=== PATIENT | male | born 1940 | race Caucasian/White ===

== ENCOUNTER 2016-11-15 11:47 | Inpatient (IN) | payer MEDICARE, BC ==
[~2016-11-15] VITALS: Ht 188 cm; Wt 190.5 kg
[2016-11-15] VITALS (15 sets, daily range): BP systolic 99–148; BP diastolic 47–82; BMI 54.0
[~2016-11-15 11:47] MED LIST: ADVIL200 MG PO; BUMEX2 MG PO; COLCRYS0.6 MG PO; COUMADIN5 MG PO; LISINOPRIL-HCTZ1 T13 PO; METFORMIN HCL500 M1 PO; METOPROLOL TAR100 M1 PO; PRAVACHOL40 MG PO; PROTONIX40 MG PO; XARELTO20 MG PO; ZYLOPRIM100 MG PO
[2016-11-15 12:35] LABS: BASOPHILS 0.5 % (0.0-2.0); HEMATOCRIT 28.6 % (42.0-54.0); HEMOGLOBIN 8.5 g/dL (13.5-17.5); IMMATURE GRANULOCYTES 0.4 % (0-5); LYMPHOCYTES 12.2 % (15-50); MCH 21.9 pg (26.0-34.0); MCHC 29.7 g/dL (31.0-37.0); MCV 73.7 fL (80.0-100.0); MEAN PLATELET VOLUME 9.5 fL (7.4-10.4); MONOCYTES 10.2 % (2-11); NEUTROPHILS 72.7 % (40-80); PLATELET COUNT 268 10x3/uL (130-400); RBC 3.88 10x6/uL (4.20-6.10); WBC 8.4 10x3/uL (4.8-10.8)
[2016-11-15 12:49] LABS: ALBUMIN 3.6 g/dL (3.4-5.0); ANION GAP 16.5 mmol/L (8-16); BILIRUBIN - TOTAL 0.53 mg/dL (0.2-1.3); CALCIUM 8.8 mg/dL (8.5-10.1); CARBON DIOXIDE 23.9 mmol/L (21.0-32.0); CREATININE - SERUM 1.4 mg/dL (0.6-1.3); POTASSIUM - SERUM 4.4 mmol/L (3.5-5.1); PROTEIN - SERUM 7.1 g/dL (6.4-8.2)
[2016-11-15 12:52] LABS: INR 2.32 (0.85-1.17); PROTIME 25.6 SECONDS (11.6-15.0)
[2016-11-15 12:53] LABS: APTT 47.9 SECONDS (22.8-39.4)
--- NOTE | 2016-11-15 17:20 | NUR ---
RECEIVED TO ROOM 2231 AT THIS TIME FROM ER VIA WHEELCHAIR. PT ALERT AND ORIENTED AND AMBULATES INDEPENDENTLY. AT BEDSIDE. IV TO RIGHT HAND PATENT WITH NO S/S OF INFILTRATION PRESENT. BLOOD CONSENT ON THE CHART. ORIENTED PT TO ROOM AND CALL LIGHT. PROVIDED WITH FRESH ICE WATER. CALL LIGHT IN REACH, WILL CONTINUE WITH PLAN OF CARE.
[2016-11-15] MEDS ORDERED: COLCRYS0.6 MG PO (17:39)
--- NOTE | 2016-11-15 18:00 | NUR ---
FIRST UNIT OF PRBC'S INITIATED AT THIS TIME. AT BEDSIDE AND VITAL SIGNS STABLE. CALL LIGHT IN REACH, WILL CONTINUE WITH PLAN OF CARE.
--- NOTE | 2016-11-15 19:30 | NUR ---
PATIENT RESTING IN BED. ALERT AND ORIENTED. BLODD INFUSING TO RIGHT HAND IV. NO SIGNS OF DISTRESS NOTED. RESPIRATIONS EVEN AND UNLABORED. DENIES ANY NEEDS AT THIS TIME. BED LOW. CALL LIGHT IN REACH.
--- NOTE | 2016-11-15 22:56 | NUR ---
RESTING WITH EYES CLOSED, RESP WITH EASE, CPAP IN PLACE, PRBC INFUSING WITH NO REACTION NOTED, SR'S UP X2, CL IN REACH
[2016-11-16 00:50] VITALS: BP 114/58
[2016-11-16 01:50] VITALS: BP 120/65
[2016-11-16 02:50] VITALS: BP 141/87
[2016-11-16 05:48] LABS: BASOPHILS 0.7 % (0.0-2.0); EOSINOPHILS 5.2 % (0-7); HEMATOCRIT 29.5 % (42.0-54.0); IMMATURE GRANULOCYTES 0.3 % (0-5); LYMPHOCYTES 15.7 % (15-50); MCH 22.8 pg (26.0-34.0); MCHC 30.5 g/dL (31.0-37.0); MCV 74.7 fL (80.0-100.0); MEAN PLATELET VOLUME 9.5 fL (7.4-10.4); MONOCYTES 11.8 % (2-11); NEUTROPHILS 66.3 % (40-80); PLATELET COUNT 275 10x3/uL (130-400); RBC 3.95 10x6/uL (4.20-6.10); WBC 6.9 10x3/uL (4.8-10.8)
[2016-11-16 06:05] LABS: ANION GAP 11.5 mmol/L (8-16); CALCIUM 8.4 mg/dL (8.5-10.1); CARBON DIOXIDE 28.3 mmol/L (21.0-32.0); CREATININE - SERUM 1.4 mg/dL (0.6-1.3); POTASSIUM - SERUM 3.8 mmol/L (3.5-5.1)
--- NOTE | 2016-11-16 07:00 | NUR ---
REPORT RECIEVED ASSUMED CARE. PATIENT IN BED WITH IV INTACT. NO COMPLAINTS. BIPAP ON, RESTING QUIETLY. CALL LIGHT WITHIN REACH.
[2016-11-16 08:09] VITALS: BP 131/70
[2016-11-16 11:56] VITALS: BP 128/66
[2016-11-16 12:29] VITALS: Ht 188 cm; Wt 190.5 kg
--- NOTE | 2016-11-16 18:55 | NUR ---
PATIENT IN BED WITH INTACT. NO COMPLAINTS AT THIS TIME. DENIES ANY NEEDS. CALL LIGHT WITHIN REACH.
[2016-11-16 20:14] VITALS: BP 131/69
--- NOTE | 2016-11-16 20:37 | NUR ---
AWAKE,ALERT, NO COMPLIANTS VOICED. SL TO RIGHT ARM WIHTOUT REDNESS OR EDEMA. CL IN REACH.
[2016-11-17 00:04] VITALS: BP 111/55
--- NOTE | 2016-11-17 01:03 | NUR ---
EYES CLOSED RESP EVEN. NO DISTRESS NOTED. NPO AFER MN FOR AM PROCEDURE. CL IN REACH.
--- NOTE | 2016-11-17 03:24 | NUR ---
PT IS ALSEEP WITH EASY RESPIRATIONS AND NO DISTRESS NOTED. THE BED IS LOW, RAILS UP X'S 2 AND THE CALL LIGHT AT HAND. LIGHTS OFF AND ROOM IS DIM.
[2016-11-17 03:59] VITALS: BP 125/71
[2016-11-17 05:49] LABS: BASOPHILS 0.7 % (0.0-2.0); EOSINOPHILS 4.8 % (0-7); HEMATOCRIT 31.6 % (42.0-54.0); HEMOGLOBIN 9.5 g/dL (13.5-17.5); IMMATURE GRANULOCYTES 0.3 % (0-5); LYMPHOCYTES 19.2 % (15-50); MCH 22.4 pg (26.0-34.0); MCHC 30.1 g/dL (31.0-37.0); MCV 74.4 fL (80.0-100.0); MEAN PLATELET VOLUME 9.7 fL (7.4-10.4); MONOCYTES 11.6 % (2-11); NEUTROPHILS 63.4 % (40-80); PLATELET COUNT 305 10x3/uL (130-400); RBC 4.25 10x6/uL (4.20-6.10); RDW 17.2 % (11.5-14.5); WBC 7.3 10x3/uL (4.8-10.8)
[2016-11-17 06:00] LABS: INR 1.32 (0.85-1.17); PROTIME 16.3 SECONDS (11.6-15.0)
[2016-11-17 06:14] LABS: ALBUMIN 3.6 g/dL (3.4-5.0); ANION GAP 13.9 mmol/L (8-16); BILIRUBIN - DIRECT 0.4 mg/dL (0.00-0.30); BILIRUBIN - INDIRECT 0.6 mg/dL (0.00-1.00); CALCIUM 8.6 mg/dL (8.5-10.1); CARBON DIOXIDE 26.2 mmol/L (21.0-32.0); CREATININE - SERUM 1.4 mg/dL (0.6-1.3); POTASSIUM - SERUM 4.1 mmol/L (3.5-5.1); PROTEIN - SERUM 6.9 g/dL (6.4-8.2)
--- NOTE | 2016-11-17 06:30 | NUR ---
AROUSES EASILY. NO COMPLIANTS VOICED. CL IN REACH. REMAINS NPO
[2016-11-17 08:34] VITALS: BP 117/58
[2016-11-17 12:21] VITALS: BP 146/82
--- NOTE | 2016-11-17 15:06 | NUR ---
RECEIVED PATIENT LAYING IN BED WEARING HIS CPAP MACHINE. DENIES PAIN. VERY POLITE AND SOCIAL. SALINE LOCK TO RIGHT HAND INTACT AND PATENT. PATIENT IS NPO FOR SCHEDULED EGD TODAY. MEDS HELD. CALL LIGHT WITHIN REACH AND BED IN LOW POSITION. DENIES NEEDS.
--- NOTE | 2016-11-17 15:08 | NUR ---
SALINE LOCK FLUSHED. FSBS 136. DENIES PAIN. CALM AND COOPERATIVE.
[2016-11-17 15:10] VITALS: BP 133/67
--- NOTE | 2016-11-17 15:30 | NUR ---
DOWN FOR EGD VIA BED.
--- NOTE | 2016-11-17 17:45 | NUR ---
RECEIVED FROM EGD VIA BED. FAMILY AT BEDSIDE. NO C/O VOICED. WANTING MOR FOOD.
[2016-11-17 20:00] VITALS: BP 144/84
--- NOTE | 2016-11-17 20:30 | NUR ---
AWAKE WITH NO COMPLAINTS. SL TO RIGHT ARM WITHOUT REDNESS OR EDEMA NOTED. CL IN REACH.
[2016-11-18] VITALS: BP 142/62
--- NOTE | 2016-11-18 02:08 | NUR ---
EYES CLOSED RESP EVEN AND UNALBORED. NO DISTRESS NOTED. CLIN REACH
[2016-11-18 04:00] VITALS: BP 112/65
--- NOTE | 2016-11-18 05:19 | NUR ---
PT IS ASLEEP WITH CPAP/BIPAP IN PLACE. NO DISTRESS NOTED AT THIS TIME. THE LIGHTS ARE DIM AND TV IS OFF. THE BED IS LOW, RAILS UP X'S 2 WITH THE CALL LIGHT AT HAND.
[2016-11-18 05:44] LABS: BASOPHILS 0.5 % (0.0-2.0); EOSINOPHILS 4.9 % (0-7); HEMATOCRIT 29.6 % (42.0-54.0); IMMATURE GRANULOCYTES 0.3 % (0-5); MCH 22.7 pg (26.0-34.0); MCHC 30.4 g/dL (31.0-37.0); MCV 74.6 fL (80.0-100.0); MEAN PLATELET VOLUME 9.7 fL (7.4-10.4); MONOCYTES 13.1 % (2-11); NEUTROPHILS 63.2 % (40-80); PLATELET COUNT 262 10x3/uL (130-400); RBC 3.97 10x6/uL (4.20-6.10); RDW 17.4 % (11.5-14.5); WBC 6.2 10x3/uL (4.8-10.8)
[2016-11-18 05:52] LABS: ANION GAP 12.7 mmol/L (8-16); CALCIUM 8.6 mg/dL (8.5-10.1); CREATININE - SERUM 1.4 mg/dL (0.6-1.3); POTASSIUM - SERUM 3.7 mmol/L (3.5-5.1)
--- NOTE | 2016-11-18 06:31 | NUR ---
NO COMPLAINS VOICED. NO DISTRESS NOTED. CL IN REACH.
--- NOTE | 2016-11-18 07:25 | NUR ---
PT RESTING IN BED, NO CURRENT COMPLAINTS, BED LOWEST POSITION, CALL LIGHT IN REACH, WILL CONTINUE TO MONITOR
--- NOTE | 2016-11-18 07:25 | NUR ---
PT SITTING UP IN BED, BY BEDSIDE, NO COMPLAINTS AT THIS TIME, BED LOWEST POSITION, CALL LIGHT IN REACH, WILL CONTINUE TO MONITOR
[2016-11-18 08:43] VITALS: BP 112/52
--- NOTE | 2016-11-18 09:53 | NUR ---
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 NO COMPLAINTS OF PAIN OR BLEEDING THIS AM. STATES HE FEELS GREAT AND WANTS TO GO HOME. STATES HAD ULCERS YESTERDAY FOUND IN GI LAB AND WILL DO WHAT IS NEEDED TO HEAL THEM. CALL LIGHT IN REACH. VISITOR AT BEDSIDE
--- NOTE | 2016-11-18 12:00 | NUR ---
PT RESTING IN BED NO COMPLAINTS AT THIS TIME, BED LOWEST POSITION, SIDE RAILS UP X1, CALL LIGHT IN REACH, WILL CONTINUE TO MONITOR
[2016-11-18 12:54] VITALS: BP 118/59
[2016-11-18] MEDS ORDERED: CARAFATE1 G/10 ML PO (13:07)
[2016-11-18] MEDS ORDERED: ELIQUIS5 MG PO (13:08)
--- NOTE | 2016-11-18 13:16 | NUR ---
Patient Name: HUMBLE QUEEN Admission Status: ER Accout number: [id number] Admission Date: 11-16-2016 : 1940 Admission Diagnosis:DALIA Attending: TELMA Current LOS: 2 Anticipated DC Date: 11-18-2016 Planned Disposition: Home or Self Care Primary Insurance: MEDICARE A & B Discharge Planning Comments: CM MET WITH PATIENT REGARDING D/C NEEDS AND PLANS. PATIENT STATED HE LIVES WITH HIS SPOUSE (LEORA) AND SHE WILL DRIVE HIM HOME AT DISCHARGE. PATIENT PCP IS DR. DAILY AND PHARMACY IS [facility] [address] [facility] [employer]. PATIENT STATED HE IS INDEPENDENT WITH HIS CARE AND HAS A C-PAP, WALKER, AND SHOWER CHAIR AT HOME. PATIENT DENIES HOME HEALTH OR ANY OTHER NEEDS AT DISCHARGE. PAIENT SHOULD D/C HOME TODAY AND WILL DRIVE HIM HOME. CM WILL CONTINUE TO FOLLOW PATIENT WITH D/C NEEDS AND PLANS. PCP DR. KILLIAN RON 7S [phone] LEORA () [phone] [employer] Teacher: Chinyere Jenesn Is the patient Alert and Oriented? Yes 0 * How many steps to enter\exit or inside your home? 3 W/RAILS 0 * PCP DR. DAILY 0 * [facility] * Preadmission Environment Home with Family 0 * ADLs Independent 0 * Equipment CPAP Shower Chair Walker 0 * List name and contact numbers for known caregivers / representatives who currently or will assist patient after discharge: LEORA (SPOUSE) [phone] 0 * Community resources currently utilized None 0 * Additional services required to return to the preadmission environment? Yes 0 * Can the patient safely return to the preadmission environment? Yes 0 * Has this patient been hospitalized within the prior 30 days at any hospital? No 0 Grand Total: 0
--- NOTE | 2016-11-18 16:14 | NUR ---
DISCHARGE PAPER AND INSTRUCTIONS GIVEN TO PATIENT AND SPOUSE, QUESTIONS ANSWERED, IV REMOVED WITH TIP INTACT, DISCHARGED PER WHEELCHAIR WITH BELONGINGS
== END 2016-11-18 16:15 | disposition home or self-care (01) | DRG 377 ==
LOC: D.ER 11:47 → D.MS 15:50 → OBSVTIME 15:50 → D.MS 11-16 13:43
PROVIDERS: Emergency Medicine; Internal Medicine Gastroenterology; ADMIT Family Medicine
PROC: 0W3P8ZZ Control Bleeding in Gastrointestinal Tract, Via Natural or Artificial Opening Endoscopic (ICD-10-PCS; principal; 2016-11-17 15:45)
DX: K26.4 Chronic or unspecified duodenal ulcer with hemorrhage (principal); I50.23 Acute on chronic systolic (congestive) heart failure; D62 Acute posthemorrhagic anemia; I11.0 Hypertensive heart disease with heart failure; E11.9 Type 2 diabetes mellitus without complications; I48.91 Unspecified atrial fibrillation; Z79.01 Long term (current) use of anticoagulants; Z95.0 Presence of cardiac pacemaker; Z86.73 Personal history of transient ischemic attack (TIA), and cerebral infarction without residual deficits; K29.60 Other gastritis without bleeding; K44.9 Diaphragmatic hernia without obstruction or gangrene; K20.9 Esophagitis, unspecified

== ENCOUNTER 2016-12-22 10:50 | Observation (INO) | payer MEDICARE, BC ==
[2016-12-22] VITALS (18 sets, daily range): BP systolic 105–167; BP diastolic 41–86; Ht 188 cm; Wt 190.9 kg
[~2016-12-22] VITALS: Ht 188 cm; Wt 190.9 kg
[~2016-12-22 10:50] MED LIST changes: +CARAFATE1 G/10 ML PO; +ELIQUIS5 MG PO
--- NOTE | 2016-12-22 11:08 | NUR ---
RECIEVED PATIENT VIA WHEELCHAIR WITH ADMISSION STAFF AND PATIENT'S . PATIENT IS ALERT AND ORIENTED X'S 4. AMBULATORY, GAIT STEADY. NO SIGNS OF DISTRESS NOTED. PATIENT STATED HE HAD A BLACK STOOL YESTERDAY AND HISTORY OF GI BLEEDS. DENIES ANY OTHER SIGNS OF BLEEDING AND DENIES ANY BM TODAY.
--- NOTE | 2016-12-22 12:21 | NUR ---
Patient Name: HUMBLE QUEEN Admission Status: Elective Accout number: [id number] Admission Date: 12-22-2016 : 1940 Admission Diagnosis: Attending: TELMA Current LOS: 1 Anticipated DC Date: 12-26-2016 Planned Disposition: Home or Self Care Primary Insurance: MEDICARE A & B Discharge Planning Comments: CM MET WITH PATIENT AND (LEORA) REGARDING D/C NEEDS AND PLANS. PATIENT STATED HE LIVES WITH HIS SPOUSE AND SHE WILL DRIVE HIM HOME AT DISCHARGE. THERE ARE 2 STEPS W/RAILS TO ENTER HOME AND NO STAIRS INSIDE PER . PATIENT IS INDEPENDENT WITH HIS CARE AND HAS A C-PAP AT HOME THAT HE USES WHEN HE SLEEPS. PATIENTS PCP IS DR. DAILY AND PHARMACY IS [facility] ON [address]. AND PATIENT DENIED HOME HEALTH NEEDS AT DISCHARGE. CM WILL CONTINUE TO FOLLOW PATIENT WITH D/C NEEDS AND PLANS. PCP DR. KILLIAN RON [address]- [phone] LEORA () [phone] Marketing Communication Manager: Chinyere Jensen Is the patient Alert and Oriented? Yes 0 * How many steps to enter\exit or inside your home? 2 W/RAILS 0 * PCP DR. DAILY 0 * Pharmacy [facility] [address] 0 * Preadmission Environment Home with Family 0 * ADLs Independent 0 * Equipment None 0 * List name and contact numbers for known caregivers / representatives who currently or will assist patient after discharge: LEORA (SPOUSE) [phone] * Community resources currently utilized None 0 * Additional services required to return to the preadmission environment? Yes 0 * Can the patient safely return to the preadmission environment? Yes 0 * Has this patient been hospitalized within the prior 30 days at any hospital? No 0 Grand Total: 0
[2016-12-22 12:56] LABS: HEMATOCRIT 29.5 % (42.0-54.0); HEMOGLOBIN 8.8 g/dL (13.5-17.5)
[2016-12-22] MEDS ORDERED: XARELTO20 MG PO (20:42)
[2016-12-23] VITALS (8 sets, daily range): BP systolic 104–134; BP diastolic 53–69
[2016-12-23 05:50] LABS: BASOPHILS 0.4 % (0.0-2.0); EOSINOPHILS 5.1 % (0-7); HEMATOCRIT 30.6 % (42.0-54.0); HEMOGLOBIN 9.3 g/dL (13.5-17.5); IMMATURE GRANULOCYTES 0.1 % (0-5); LYMPHOCYTES 14.6 % (15-50); MCH 23.4 pg (26.0-34.0); MCHC 30.4 g/dL (31.0-37.0); MCV 77.1 fL (80.0-100.0); MEAN PLATELET VOLUME 9.7 fL (7.4-10.4); MONOCYTES 11.9 % (2-11); NEUTROPHILS 67.9 % (40-80); PLATELET COUNT 286 10x3/uL (130-400); RBC 3.97 10x6/uL (4.20-6.10); RDW 20.9 % (11.5-14.5); WBC 6.9 10x3/uL (4.8-10.8)
[2016-12-23 06:19] LABS: ALBUMIN 3.5 g/dL (3.4-5.0); ANION GAP 13.6 mmol/L (8-16); BILIRUBIN - TOTAL 0.91 mg/dL (0.2-1.3); CALCIUM 8.6 mg/dL (8.5-10.1); CARBON DIOXIDE 24.6 mmol/L (21.0-32.0); CREATININE - SERUM 1.5 mg/dL (0.6-1.3); POTASSIUM - SERUM 4.2 mmol/L (3.5-5.1); PROTEIN - SERUM 6.5 g/dL (6.4-8.2)
--- NOTE | 2016-12-23 07:30 | NUR ---
RECIEVED PT DURING WALKING ROUNDS. PT RESTING COMFORTABLY IN BED WITH NO COMPLAINTS OF PAIN OR DISCOMFORT AT THIS TIME. ASSESSMENT DONE PER FLOWSHEET. BED IN LOW POSITION AND CALL LIGHT WITHIN REACH. WILL CONTINUE TO MONITOR.
--- NOTE | 2016-12-23 12:48 | OP ---
PATIENT NAME: HUMBLE QUEEN MEDICAL RECORD: [id number] :42 LOCATION:D.MS [address] ADMISSION DATE:12/22/16 SURGEON: SHAY BUSTILLOS DO DATE OF OPERATION: 12/22/2016 PROCEDURE: EGD. SCOPE: Olympus video gastroscope. MEDICATIONS: 250 mg of propofol per IV by anesthesia. INDICATIONS FOR PROCEDURE: Melena/GI bleed. FINDINGS: Informed consent was given. The patient was made comfortable with the above medications. After reaching an adequate level of sedation by slow IV push, the patient was placed on his left side. The endoscope was then advanced under direct visualization through the mouth to the second portion of the duodenum. The upper, middle and distal thirds of the esophagus appeared normal. At the GE junction, there was some evidence of LA class C reflux induced esophagitis. Scope was advanced beyond the GE junction and retroflexed to view the cardia, where a small sliding hiatal hernia was present. In the stomach, there were patchy areas of possible gastritis characterized by granularity and erythema. No biopsies were taken at this time. In the pyloric channel and prepyloric region, there were diminutive erosion/ulcerations. There is no evidence of current or recent bleeding from these sites. Scope was advanced beyond the pylorus into the duodenum where there was evidence of a previous large ulcer in the duodenal bulb. This ulcer has healed and left a scar. There were no ulcerations or other abnormalities within the bulb or second portion of the duodenum. Scope was then withdrawn from the patient. The patient tolerated the procedure well and there were no complications. ESTIMATED BLOOD LOSS: 0 mL. IMPRESSION: 1. Reflux esophagitis grade C. 2. Gastritis. 3. Small sliding hiatal hernia. 4. Erosions and superficial ulcerations of the pylorus. 5. Previous scar from past ulcerations from the duodenum. PLAN AND RECOMMENDATIONS: 1. Return to floor. 2. Monitor for further bleeding and monitor hemoglobin with transfusions as indicated. 3. Continue supportive care. 4. Continue propofol proton pump inhibitor at 40 mg equivalent daily. 5. If there are further signs of bleeding or hemoglobin drops, consideration will be given to perform a lower endoscopy or other procedures as indicated based on symptoms and signs. TRANSINT:[id number] Voice Confirmation ID: [id number] DOCUMENT ID: [id number] OPERATIVE REPORT [id number] HUMBLE QUEEN,SHAY Wylie DO at 1248 CC: [id number] DICTATION DATE: 12/22/16 1643 FEED PROJECT ENGINEER: 12/22/16 2316 ADM IN [facility] [address] [id number]
--- NOTE | 2016-12-23 15:50 | NUR ---
TRAPEZE BAR PLACED ON PT BED AT THIS TIME TO ASSIST PT WITH GETTING OUT OF BED. INFORMED PT THAT HE WAS ALLOWED TO GET UP OUT OF BED AND WALK IF HE WANTED. PT UNDERSTOOD. BED IN LOW POSITION AND CALL LIGHT WITHIN REACH. WILL CONTINUE TO MONITOR.
--- NOTE | 2016-12-23 19:49 | NUR ---
PATIENT IS AWAKE, ALERT AND ORIENTED X'S 4. RESPIRATIONS ARE EVEN AND UNLABORED ON ROOM AIR. NO SIGNS OF DISTRESS NOTED. BED IN LOWEST POSITION, CALL LIGHT IN REACH. BED RAILS UP X'S 2.
[2016-12-24] VITALS: BP 131/62
[2016-12-24 04:00] VITALS: BP 120/63
[2016-12-24 07:06] LABS: BASOPHILS 0.8 % (0.0-2.0); EOSINOPHILS 5.3 % (0-7); HEMATOCRIT 30.9 % (42.0-54.0); HEMOGLOBIN 9.4 g/dL (13.5-17.5); IMMATURE GRANULOCYTES 0.3 % (0-5); LYMPHOCYTES 16.8 % (15-50); MCH 23.4 pg (26.0-34.0); MCHC 30.4 g/dL (31.0-37.0); MCV 77.1 fL (80.0-100.0); MEAN PLATELET VOLUME 9.6 fL (7.4-10.4); NEUTROPHILS 63.8 % (40-80); PLATELET COUNT 288 10x3/uL (130-400); RBC 4.01 10x6/uL (4.20-6.10); RDW 21.2 % (11.5-14.5); WBC 6.4 10x3/uL (4.8-10.8)
[2016-12-24 07:28] LABS: ALBUMIN 3.4 g/dL (3.4-5.0); ANION GAP 12.3 mmol/L (8-16); BILIRUBIN - TOTAL 0.7 mg/dL (0.2-1.3); CALCIUM 8.7 mg/dL (8.5-10.1); CARBON DIOXIDE 25.7 mmol/L (21.0-32.0); CREATININE - SERUM 1.6 mg/dL (0.6-1.3)
--- NOTE | 2016-12-24 07:40 | NUR ---
ASLEEP, EASILY AROUSED, STATES HE IS WAITING TO BE DISCHARGED, DENIES NEEDS, BED LOWEST POSITION, CALL LIGHT IN REACH, WILL CONTINUE TO MONITOR
[2016-12-24 08:41] VITALS: BP 141/79
[2016-12-24 12:30] VITALS: BP 118/70
--- NOTE | 2016-12-24 13:55 | NUR ---
AWAKE AND ALERT. RESPIRATIONS EVEN AND NON LABORED. IV TO RIGHT HAND PATENT AND SALINE LOCKED. CALL LIGHT IN REACH WITH SRX2 AND BED IN LOWEST POSITION WITH WHEELS LOCKED. DENIES NEEDS, WILL CONTINUE WITH PLAN OF CARE.
[2016-12-24] MEDS ORDERED: ELIQUIS2.5 MG PO (14:17)
[2016-12-24 16:05] VITALS: BP 113/54
--- NOTE | 2016-12-24 17:25 | NUR ---
DISCHARGE PAPER AND INSTRUCTIONS GIVEN, QUESTIONS ANSWERED, IV REMOVED TIP INTACT, DISCHARGED PER WC WITH BELONGINGS
== END 2016-12-24 17:26 | disposition home or self-care (01) ==
LOC: D.MS 10:50 → OBSVTIME 10:50 → D.MS 12-24 17:26
PROVIDERS: ADMIT Family Medicine
DX: K29.71 Gastritis, unspecified, with bleeding (principal); K29.91 Gastroduodenitis, unspecified, with bleeding; K31.7 Polyp of stomach and duodenum; D62 Acute posthemorrhagic anemia; I50.22 Chronic systolic (congestive) heart failure; I48.91 Unspecified atrial fibrillation; Z79.01 Long term (current) use of anticoagulants; K25.9 Gastric ulcer, unspecified as acute or chronic, without hemorrhage or perforation

== ENCOUNTER 2017-03-31 17:07 | Inpatient (IN) | payer MEDICARE, BC ==
[~2017-03-31] VITALS: Ht 185.4 cm; Wt 193.3 kg
[~2017-03-31 17:07] MED LIST changes: +ELIQUIS2.5 MG PO
[2017-03-31] MEDS ORDERED: PROTONIX40 MG PO (17:52)
[2017-03-31 17:53] VITALS: BP 143/96; BMI 56.2
[2017-03-31 18:15] LABS: CKMB 0.6 U/L (0.0-3.6); CREATINE KINASE 24 UL (21-232)
[2017-03-31 18:16] LABS: TROPONIN-I < 0.017 ng/mL (0.000-0.060)
[2017-03-31 19:00] VITALS: BP 106/51
[2017-04-01] VITALS: BP 118/58
[2017-04-01 01:18] LABS: CKMB 0.7 U/L (0.0-3.6); CREATINE KINASE 23 UL (21-232)
[2017-04-01 01:33] LABS: TROPONIN-I < 0.017 ng/mL (0.000-0.060)
[2017-04-01 04:00] VITALS: BP 98/54
[2017-04-01 06:45] LABS: HEMATOCRIT 26.1 % (42.0-54.0); HEMOGLOBIN 7.8 g/dL (13.5-17.5); IMMATURE GRANULOCYTES 0.3 % (0-5); LYMPHOCYTES 18.8 % (15-50); MCHC 29.9 g/dL (31.0-37.0); MCV 70.4 fL (80.0-100.0); MEAN PLATELET VOLUME 9.2 fL (7.4-10.4); MONOCYTES 10.4 % (2-11); NEUTROPHILS 64.5 % (40-80); PLATELET COUNT 296 10x3/uL (130-400); RBC 3.71 10x6/uL (4.20-6.10); RDW 19.1 % (11.5-14.5); WBC 6.3 10x3/uL (4.8-10.8)
[2017-04-01 07:01] LABS: INR 1.38 (0.85-1.17); PROTIME 16.9 SECONDS (11.6-15.0)
[2017-04-01 07:15] LABS: ALBUMIN 3.4 g/dL (3.4-5.0); ALKALINE PHOSPHATASE 111 U/L (46-116); ALT (SGPT) 19 U/L (10-68); CALC OSMOLALITY 296 mosm/kg (275-300); CALCIUM 8.5 mg/dL (8.5-10.1); CARBON DIOXIDE 24.7 mmol/L (21.0-32.0); CHLORIDE - SERUM 104 mmol/L (98-107); CKMB 0.4 U/L (0.0-3.6); CREATINE KINASE 19 UL (21-232); CREATININE - SERUM 1.8 mg/dL (0.6-1.3); GLUCOSE 168 mg/dL (74-106); POTASSIUM - SERUM 4.2 mmol/L (3.5-5.1); PROTEIN - SERUM 7.2 g/dL (6.4-8.2); SODIUM 138 mmol/L (136-145); TROPONIN-I < 0.017 ng/mL (0.000-0.060); UREA NITROGEN 61 mg/dL (7-18); eGFR NON AFRICAN AMERICAN 39 mL/min (90-120)
[2017-04-01 08:31] VITALS: BP 104/54
[2017-04-01 10:39] VITALS: Ht 185.4 cm; Wt 193.3 kg
[2017-04-01 19:18] LABS: HEMATOCRIT 28.1 % (42.0-54.0); HEMOGLOBIN 8.4 g/dL (13.5-17.5)
[2017-04-01 20:00] VITALS: BP 120/57
[2017-04-02 04:00] VITALS: BP 126/62
[2017-04-02 05:29] LABS: BASOPHILS 0.6 % (0-2); EOSINOPHILS 4.9 % (0-7); HEMATOCRIT 27.9 % (42.0-54.0); HEMOGLOBIN 8.4 g/dL (13.5-17.5); IMMATURE GRANULOCYTES 0.4 % (0-5); MCH 21.7 pg (26.0-34.0); MCHC 30.1 g/dL (31.0-37.0); MCV 72.1 fL (80.0-100.0); NEUTROPHILS 68.1 % (40-80); PLATELET COUNT 284 10x3/uL (130-400); RBC 3.87 10x6/uL (4.20-6.10); RDW 19.9 % (11.5-14.5); WBC 7.2 10x3/uL (4.8-10.8)
[2017-04-02 05:39] LABS: INR 1.33 (0.85-1.17); PROTIME 16.3 SECONDS (11.6-15.0)
[2017-04-02 06:18] LABS: ALBUMIN 3.2 g/dL (3.4-5.0); ANION GAP 12.6 mmol/L (8-16); BILIRUBIN - TOTAL 1.19 mg/dL (0.2-1.3); CALCIUM 8.6 mg/dL (8.5-10.1); CARBON DIOXIDE 26.6 mmol/L (21.0-32.0); CREATININE - SERUM 1.8 mg/dL (0.6-1.3); POTASSIUM - SERUM 4.2 mmol/L (3.5-5.1); PROTEIN - SERUM 6.9 g/dL (6.4-8.2)
[2017-04-02 08:00] VITALS: BP 135/50
[2017-04-02 11:31] VITALS: BP 147/64
[2017-04-02 12:35] LABS: HEMATOCRIT 30.6 % (42.0-54.0); HEMOGLOBIN 9.2 g/dL (13.5-17.5)
[2017-04-02 15:12] VITALS: BP 142/60
[2017-04-02 17:32] LABS: BASOPHILS 0.8 % (0-2); EOSINOPHILS 4.3 % (0-7); HEMATOCRIT 30.4 % (42.0-54.0); HEMOGLOBIN 9.3 g/dL (13.5-17.5); IMMATURE GRANULOCYTES 0.6 % (0-5); LYMPHOCYTES 15.8 % (15-50); MCH 22.2 pg (26.0-34.0); MCHC 30.6 g/dL (31.0-37.0); MCV 72.7 fL (80.0-100.0); MEAN PLATELET VOLUME 9.3 fL (7.4-10.4); MONOCYTES 12.6 % (2-11); NEUTROPHILS 65.9 % (40-80); PLATELET COUNT 293 10x3/uL (130-400); RBC 4.18 10x6/uL (4.20-6.10); RDW 20.3 % (11.5-14.5)
[2017-04-02 22:00] VITALS: BP 135/62
[2017-04-03] VITALS: BP 144/89
[2017-04-03 05:03] VITALS: BP 141/74
[2017-04-03 06:11] LABS: BASOPHILS 0.6 % (0-2); EOSINOPHILS 3.8 % (0-7); HEMOGLOBIN 9.7 g/dL (13.5-17.5); IMMATURE GRANULOCYTES 0.5 % (0-5); LYMPHOCYTES 13.3 % (15-50); MCH 22.4 pg (26.0-34.0); MCHC 30.3 g/dL (31.0-37.0); MCV 73.9 fL (80.0-100.0); MEAN PLATELET VOLUME 9.2 fL (7.4-10.4); MONOCYTES 12.5 % (2-11); NEUTROPHILS 69.3 % (40-80); PLATELET COUNT 265 10x3/uL (130-400); RBC 4.33 10x6/uL (4.20-6.10); RDW 20.9 % (11.5-14.5); WBC 8.5 10x3/uL (4.8-10.8)
[2017-04-03 06:21] LABS: INR 1.31 (0.85-1.17); PROTIME 16.2 SECONDS (11.6-15.0)
[2017-04-03 06:27] LABS: ALBUMIN 3.4 g/dL (3.4-5.0); ANION GAP 15.8 mmol/L (8-16); BILIRUBIN - TOTAL 1.24 mg/dL (0.2-1.3); CALCIUM 8.6 mg/dL (8.5-10.1); CARBON DIOXIDE 25.4 mmol/L (21.0-32.0); CREATININE - SERUM 1.7 mg/dL (0.6-1.3); POTASSIUM - SERUM 4.2 mmol/L (3.5-5.1); PROTEIN - SERUM 6.8 g/dL (6.4-8.2)
[2017-04-03 08:00] VITALS: BP 96/72
[2017-04-03 12:00] VITALS: BP 142/61
[2017-04-03] MEDS ORDERED: COUMADIN2 MG PO (13:07)
--- NOTE | 2017-04-04 10:17 | CN ---
PATIENT NAME:HUMBLE QUEEN MEDICAL RECORD: [id number] : 42 LOCATION:D.M2 D.2132 ADMIT DATE: 03/31/17 ACCOUNT: [id number] CONSULTING PHYSICIAN: FRANCISCA VAZQUEZ MD REFERRING PHYSICIAN: ALBERTINA DAILY MD CARDIOLOGY CONSULT PROBLEM LIST: 1. Gastrointestinal bleed. 2. Anemia. 3. Chest pain. 4. Atrial fibrillation, chronic. 5. Sick sinus syndrome. 6. Status post pacemaker. 7. Hypertension. 8. Obesity. 9. Gastroesophageal reflux disease. 10. Noninsulin dependent diabetes. HISTORY OF PRESENT ILLNESS: This is a gentleman well-known to us with a past history of atrial fibrillation that is chronic at this point. He comes in with a hemoglobin of 6.6, anemia, fatigue, and some chest pain. His atrial fibrillation is controlled on his metoprolol. He has had a history of gastrointestinal bleeds. He has had a history of a stroke. He was on Coumadin for years and did not have any significant bleeding problems on the Coumadin. He was taken off the Coumadin in July for a procedure. He was off for five days. He had a cerebrovascular accident at that time. After this, he was placed on Eliquis. Since then he has had three gastrointestinal bleeds requiring admission and transfusion. His chest pain has resolved now. His hemoglobin is up to 7.8. PHYSICAL EXAMINATION: HEAD, EYES, EARS, NOSE, AND THROAT: Benign. NECK: Supple. No jugular venous distention. Carotid upstroke plus two bilaterally without bruits. LUNGS: Overall clear to auscultation and percussion. HEART: Irregularly irregular in atrial fibrillation. BONES, JOINTS, EXTREMITIES: No clubbing, cyanosis, or edema. OVERALL IMPRESSION: Recurrent gastrointestinal bleed on Eliquis. He had no significant gastrointestinal bleed on Coumadin. Our recommendation would be discontinue the Eliquis and put him on low dose Coumadin for anticoagulation. At this time, would leave him off anticoagulation to see if GI needs to do any procedure such as endoscopy. After GI deems safe to re-anticoagulate, would just put him on Coumadin with an INR goal of 2.0. FRANCISCA VAZQUEZ MD at 1017 CC: [id number] DICTATION DATE: 03/31/17 1600 REGISTERED MEDICAL ASSISTANT: COLT 04/03/17 1142 DIS IN 04/03/17 [facility] [address] [facility] [place], [id number]
== END 2017-04-03 16:20 | disposition home or self-care (01) | DRG 812 ==
LOC: D.M2 17:07
PROVIDERS: Family Medicine; ADMIT Family Medicine
DX: D62 Acute posthemorrhagic anemia (principal); K92.2 Gastrointestinal hemorrhage, unspecified; R07.9 Chest pain, unspecified; I48.2 Chronic atrial fibrillation; Z79.01 Long term (current) use of anticoagulants; I10 Essential (primary) hypertension; E66.9 Obesity, unspecified; K21.9 Gastro-esophageal reflux disease without esophagitis; Z95.0 Presence of cardiac pacemaker; E11.9 Type 2 diabetes mellitus without complications; N28.9 Disorder of kidney and ureter, unspecified; I95.9 Hypotension, unspecified

== ENCOUNTER 2017-04-23 12:33 | Inpatient (IN) | payer MEDICARE, BC ==
[~2017-04-23] VITALS: Ht 185.4 cm; Wt 190.9 kg
[~2017-04-23 12:33] MED LIST changes: +COUMADIN2 MG PO
[2017-04-23 13:15] LABS: BASOPHILS 0.3 % (0-2); EOSINOPHILS 1.2 % (0-7); HEMATOCRIT 33.8 % (42.0-54.0); HEMOGLOBIN 10.3 g/dL (13.5-17.5); IMMATURE GRANULOCYTES 0.2 % (0-5); LYMPHOCYTES 11.1 % (15-50); MCHC 30.5 g/dL (31.0-37.0); MCV 72.1 fL (80.0-100.0); MEAN PLATELET VOLUME 9.4 fL (7.4-10.4); MONOCYTES 11.8 % (2-11); NEUTROPHILS 75.4 % (40-80); PLATELET COUNT 306 10x3/uL (130-400); RBC 4.69 10x6/uL (4.20-6.10); RDW 21.3 % (11.5-14.5); WBC 8.7 10x3/uL (4.8-10.8)
[2017-04-23 13:30] LABS: ALBUMIN 3.8 g/dL (3.4-5.0); ALKALINE PHOSPHATASE 134 U/L (46-116); ALT (SGPT) 25 U/L (10-68); BILIRUBIN - TOTAL 1.16 mg/dL (0.2-1.3); CALC OSMOLALITY 285 mosm/kg (275-300); CALCIUM 8.4 mg/dL (8.5-10.1); CARBON DIOXIDE 28.5 mmol/L (21.0-32.0); CHLORIDE - SERUM 100 mmol/L (98-107); CREATININE - SERUM 1.6 mg/dL (0.6-1.3); GLUCOSE 183 mg/dL (74-106); POTASSIUM - SERUM 4.3 mmol/L (3.5-5.1); PROTEIN - SERUM 7.8 g/dL (6.4-8.2); SODIUM 136 mmol/L (136-145); UREA NITROGEN 39 mg/dL (7-18); eGFR NON AFRICAN AMERICAN 45 mL/min (90-120)
[2017-04-23 13:41] LABS: CHOLESTEROL, TOTAL 134 mg/dL (0-200); CKMB 0.4 U/L (0.0-3.6); CREATINE KINASE 28 UL (21-232); HDL CHOLESTEROL 27 mg/dL (32-96); LDL CHOLESTEROL 91 mg/dL (0-100); LDL-HDL RATIO 3.4 ratio (1.5-3.5); TRIGLYCERIDE 82 mg/dL (30-200)
[2017-04-23 13:47] LABS: TROPONIN-I < 0.017 ng/mL (0.000-0.060)
[2017-04-23 15:19] LABS: APPEARANCE CLEAR (CLEAR); BILIRUBIN NEGATIVE (NEGATIVE); COLOR YELLOW (YELLOW); GLUCOSE NEGATIVE (NEGATIVE); KETONE NEGATIVE (NEGATIVE); LEUKOCYTE ESTERASE NEGATIVE (NEGATIVE); NITRITE NEGATIVE (NEGATIVE); PH 6.5 (5.0-6.0); PROTEIN NEGATIVE (NEGATIVE); UROBILINOGEN NORMAL (NORMAL)
--- NOTE | 2017-04-23 18:11 | NUR ---
RECEIVED REPORT FROM SIOBHAN IN ED. PATIENT TO UNIT SOON.
--- NOTE | 2017-04-23 18:38 | NUR ---
RECEIVED PATIENT TO ROOM 2135 FROM ED AT THIS TIME VIA [facility]. PATIENT ACCOMPANIED BY PATIENTS . PATIENT ALERT AND ORIENTED. ASSISTED PATIENT TO TRANSFER FROM [facility] TO BED. LEVAQUIN INFUSING TO LEFT HAND. CALL LIGHT WITHIN REACH. NO DISTRESS.
--- NOTE | 2017-04-23 19:57 | NUR ---
RN TO DO ASSESSMENT.
--- NOTE | 2017-04-23 20:00 | NUR ---
PT IN BED WITH HOB UP FOR COMFORT. WATCHING TV. AT BEDSIDE. ALERT & ORIENTED. TELEMETRY. ELECTROLYTE PROTOCOL. STRICT I & O. CPAP @ NIGHT. FSBS. O2 @ 2L VIA N/C. LEFT HAND SALINE LOC. PT STATES HE HAS A PAIN LEVEL OF 4/10. BED IN LOWEST POSITION AND CALL LIGHT WITHIN REACH.
[2017-04-23 21:40] VITALS: BP 113/55
--- NOTE | 2017-04-23 22:15 | NUR ---
REVIEWED HOME MEDS AND PT STATES SHE HAS NOT TAKEN HER COUMADIN DOSE FOR TODAY. MED WILL BE PULLED AND PROVIDED SINCE IT HAS BEEN APPROVED TO BE CONTINUED.
[2017-04-24] VITALS: BP 113/44
--- NOTE | 2017-04-24 02:10 | NUR ---
PT LYING IN BED. EYES CLOSED. RESP. EVEN. WEARING CPAP. CALL LIGHT WITHIN REACH.
--- NOTE | 2017-04-24 05:08 | NUR ---
ASLEEP. WILL CONTINUE TO MONITOR.
[2017-04-24 06:13] LABS: HEMATOCRIT 29.9 % (42.0-54.0); HEMOGLOBIN 9.1 g/dL (13.5-17.5); MCH 21.8 pg (26.0-34.0); MCHC 30.4 g/dL (31.0-37.0); MCV 71.7 fL (80.0-100.0); MEAN PLATELET VOLUME 9.3 fL (7.4-10.4); PLATELET COUNT 271 10x3/uL (130-400); RBC 4.17 10x6/uL (4.20-6.10); RDW 21.7 % (11.5-14.5); WBC 7.7 10x3/uL (4.8-10.8)
[2017-04-24 06:14] LABS: INR 1.6 (0.85-1.17)
[2017-04-24 06:23] LABS: ANION GAP 11.5 mmol/L (8-16); CALCIUM 8.3 mg/dL (8.5-10.1); CARBON DIOXIDE 29.3 mmol/L (21.0-32.0); CREATININE - SERUM 1.9 mg/dL (0.6-1.3); POTASSIUM - SERUM 3.8 mmol/L (3.5-5.1)
--- NOTE | 2017-04-24 07:25 | NUR ---
PATIENT RESTING IN THE BED. PATIENT IS AWAKE, ALERT, AND ORIENTED X4. NO COMPLAINTS OF PAIN AT PRESENT TIME. CPAP IN USE AT PRESENT TIME. PATIENT DENIES ANY NEEDS AT PRESENT TIME. CALL LIGHT IN PATIENT'S REACH. WILL MONITOR.
[2017-04-24 07:32] LABS: EOSINOPHILS 2 % (0-7); LYMPHOCYTES 11 % (15-50); MONOCYTES 20 % (2-11); NEUTROPHILS 67 % (40-80)
[2017-04-24 07:33] LABS: ANISOCYTOSIS OCC; HYPOCHROMASIA 1+; PLATELET ESTIMATE NORMAL
[2017-04-24 07:34] VITALS: BP 127/56
[2017-04-24 07:52] VITALS: BP 113/55; Ht 185.4 cm; Wt 190.9 kg
[2017-04-24 11:50] VITALS: BP 131/63
--- NOTE | 2017-04-24 13:06 | HP ---
PATIENT: HUMBLE QUEEN MEDICAL RECORD: [id number] ACCOUNT: [id number] LOCATION:[address] : 42 ADMISSION DATE: 04/23/17 HISTORY AND PHYSICAL EXAMINATION REASON FOR ADMISSION: Fever and chills and chest pain. HISTORY OF PRESENT ILLNESS: The patient is a 76-year-old male with metabolic syndrome and atrial fibrillation chronically. He had been hospitalized 2 weeks ago for anemia presumed of GI origin. He was transfused and sent home, off of Eliquis and on Coumadin. He said he felt well until yesterday and developed chills and fever and substernal chest pain that lasted all evening. He said he was having more trouble breathing and had to sit up at night to breathe last night on his CPAP. The pain did not radiate, was not exertional. He had a little cough, but nothing out of ordinary. He came to the Emergency Room for these reasons this evening. His temperature is 101.7. His heart rate was over 110 and his temperature spiked to 103. He was given IV metoprolol to help with heart rate and Tylenol. With his fever down, his heart rate has improved as well. Denies any exertional chest pain, nausea, vomiting, diarrhea, dysuria or low back pain. He has had no recent tick bites. Denies any skin rash. PAST MEDICAL HISTORY: Anemia of GI blood loss due to Eliquis, chronic atrial fibrillation with moderately dilated left ventricle, 40-45% EF, mild mitral regurgitation, mild left atrial dilatation per echo on July 2016. 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 History of sleep apnea on CPAP, morbid obesity, AODM; history of prostate cancer, post-prostatectomy; osteoarthritis, history of gout; sick sinus syndrome, post pacemaker placement; GERD, reflux esophagitis grade C, sliding hiatal hernia, ulcerations of the pylorus and duodenal scars from previous ulcer and gastritis. 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 PAST SURGICAL HISTORY: Cataract surgery, T&A, prostatectomy for cancer. Left total knee replacement, right partial knee replacement, right eye retinal repair, EGD, colonoscopy, pacemaker placement, argon laser therapy to stomach. ALLERGIES: MORPHINE, CODEINE, LASIX. FAMILY HISTORY: Father at 87, had history of cancer of the prostate, metastatic to the liver, and cardiovascular disease. Mother is 96 and fairly well, he states. All of his brothers have had prostate cancer. SOCIAL HISTORY: He is , does not smoke. Does drink some alcohol, but not heavily. HOME MEDICATIONS: Coumadin 2 mg at 5 p.m. daily, lisinopril HCT 20/25 one p.o. q.a.m., Lopressor 100 mg p.o. b.i.d., Bumex 2 mg p.o. b.i.d. p.r.n. edema, Protonix 40 mg p.o. daily, Carafate 1 g p.o. a.c. and h.s., allopurinol 100 mg p.o. at bedtime, colchicine 0.6 mg p.o. p.r.n. gout flareups. REVIEW OF SYSTEMS: GENERAL: He had felt well until yesterday and developed chills, night sweats and presented with fever. HEENT: No recent new visual change, sinus congestion, sore throat or hearing HISTORY AND PHYSICAL [id number] HUMBLE QUEEN. RESPIRATORY: Has shortness of breath last night with a dry cough. He had to sit up to breathe most of the night. He also complained of substernal chest pain that was worse with breathing deep and not radicular. CARDIAC: No exertional chest pain or claudication. He has had no increasing peripheral edema. GASTROINTESTINAL: No nausea, but some esophageal burning, he states. No change in stools or blood per rectum in the last 2 weeks. ENDOCRINE: Denies polyuria, polydipsia, heat or cold intolerance. NEUROLOGIC: Denies vascular headaches, memory loss or motor deficits. INTEGUMENT: No rash or itching. No recent tick bites. GENITOURINARY: Nocturia once nightly. No dysuria. MUSCULOSKELETAL: Complained of shoulder aching and chest aching during his fever episode, improved now post-Tylenol. PSYCHIATRIC: Denies depressed mood. PHYSICAL EXAMINATION: VITAL SIGNS: Temperature 101.7 initially, then 103 in the ED; pulse 107-110 irregular, respirations 24, blood pressure 103/83, sat 97% on room air. HEENT: Normocephalic. Eyes are clear on the left. No scleral icterus. Throat unremarkable. NECK: Supple, without JVD or bruits. CHEST: Distant breath sounds due to body habitus. No wheezes or rales were appreciated. He is tachypneic or retracting. ABDOMEN: Obese, soft, nontender throughout. Bowel sounds are active. GENITOURINARY: Deferred. EXTREMITIES: 2+ bipedal and 1+ pretibial edema of the knees bilaterally. No rash appreciated. No petechiae. NEUROLOGIC: Oriented to person, place, and time. Cranial nerves grossly intact. Motor and sensory is intact. Gait: Patient stands unassisted. PSYCHIATRIC: Denies depress mood. Denies memory loss. LABORATORY DATA: Urinalysis showed a pH of 6.5 elevated, otherwise unremarkable. Lactic acid is 1.8. White count is 8700, and 75% neutrophils, 11% monocytes. H&H is 10.3 and 33.8, stable from prior exam. Chemistry: BUN and creatinine of 39 and 1.6, which is his baseline. GFR is 45, low. Glucose 183, lactic acid 1.8. Alkaline phosphatase 134. Cholesterol normal except for low HDL of 27. Cholesterol ratio of 5. IMAGING DATA: Chest x-ray shows large body habitus. The lungs are well inflated and clear. Prominent cardiac silhouette. ASSESSMENT: 1. Febrile illness, etiology unknown. 2. Possible hospital-acquired pneumonia with febrile illness. 3. History of recent gastrointestinal bleeding post-transfusion. 4. Chronic atrial fibrillation with rapid ventricular response due to fever. 5. Left ventricular hypertrophy. 6. Left atrial enlargement. 7. History of prostate cancer, obesity, diabetes mellitus, chronic renal insufficiency. PLAN: He has been cultured in the ER, both blood and urine. He was placed on IV Levaquin and Zosyn to cover for HAP. We will hydrate and use antipyretics as indicated. We will hold metformin due to his creatinine of 1.6. Use sliding HISTORY AND PHYSICAL [id number] HUMBLE QUEEN A scale insulin at this time. TRANSINT:[id number] Voice Confirmation ID: [id number] DOCUMENT ID: [id number] RONALD WISE MD at 1306 CC: [id number] DICTATION DATE: 04/23/171905 CURRICULUM AND INSTRUCTION SPECIALIST: 04/23/172107 ADM IN [place] [id number]
[2017-04-24 15:31] VITALS: BP 129/57
--- NOTE | 2017-04-24 19:39 | NUR ---
PT SITTING ON SIDE OF BED. ALERT & ORIENTED. TRAPEZE BAR. TELEMETRY. PT STATES HE HAS A PAIN LEVEL 0/10. O2 @ 2L VIA N/C. CPAP @ NIGHT. LEFT HAND SALINE LOC. FSBS ACHS. UP ADLIB. BED IN LOWEST POSITION AND CALL LIGHT WITHIN REACH.
--- NOTE | 2017-04-24 19:39 | NUR ---
PT SITTING ON SIDE OF BED. ALERT & ORIENTED. TRAPEZE BAR. TELEMETRY. PT STATES HE HAS A PAIN LEVEL 0/10. NO O2. CPAP @ NIGHT. LEFT HAND SALINE LOC. FSBS ACHS. UP ADLIB. BED IN LOWEST POSITION AND CALL LIGHT WITHIN REACH.
[2017-04-24 20:59] VITALS: BP 109/55
[2017-04-25 01:20] VITALS: BP 110/64
--- NOTE | 2017-04-25 01:49 | NUR ---
PT LYING IN BED. EYES CLOSED. CHEST RISING AND FALLING. BED IN LOWEST POSITION AND CALL LIGHT WITHIN REACH.
--- NOTE | 2017-04-25 03:07 | NUR ---
PT RESTING IN BED WITH NO DISTRESS. CPOC.
[2017-04-25 05:04] VITALS: BP 117/61
[2017-04-25 05:29] LABS: BASOPHILS 0.4 % (0-2); EOSINOPHILS 2.3 % (0-7); HEMATOCRIT 28.4 % (42.0-54.0); HEMOGLOBIN 8.6 g/dL (13.5-17.5); IMMATURE GRANULOCYTES 0.3 % (0-5); LYMPHOCYTES 15.8 % (15-50); MCH 21.6 pg (26.0-34.0); MCHC 30.3 g/dL (31.0-37.0); MCV 71.2 fL (80.0-100.0); MEAN PLATELET VOLUME 9.3 fL (7.4-10.4); MONOCYTES 13.1 % (2-11); NEUTROPHILS 68.1 % (40-80); PLATELET COUNT 271 10x3/uL (130-400); RBC 3.99 10x6/uL (4.20-6.10); RDW 21.6 % (11.5-14.5); WBC 6.9 10x3/uL (4.8-10.8)
[2017-04-25 05:59] LABS: ALBUMIN 2.9 g/dL (3.4-5.0); ANION GAP 13.7 mmol/L (8-16); BILIRUBIN - TOTAL 1.11 mg/dL (0.2-1.3); CALCIUM 8.2 mg/dL (8.5-10.1); CARBON DIOXIDE 26.9 mmol/L (21.0-32.0); CREATININE - SERUM 2.1 mg/dL (0.6-1.3); POTASSIUM - SERUM 3.6 mmol/L (3.5-5.1); PROTEIN - SERUM 6.9 g/dL (6.4-8.2)
--- NOTE | 2017-04-25 07:10 | NUR ---
RECEIVED REPORT. ASSUMED CARE OF PATIENT. PATIENT SITTING TO SIDE OF BED. RESP EVEN AND UNLABORED. STATES HE FEELS MUCH BETTER THAN ON ADMISSION MONDAY NIGHT. CALL LIGHT WITHIN REACH. DENIES NEEDS. NO DISTRESS.
[2017-04-25 08:12] VITALS: BP 105/55
--- NOTE | 2017-04-25 08:30 | NUR ---
BLOOD CONSENT SIGNED AND ON PATIENT CHART.
--- NOTE | 2017-04-25 10:29 | NUR ---
TRANSFUSION PRBC'S UNIT #1 INITIATED AT THIS TIME. PATIENT TOLERATING INFUSION THUS FAR WELL. NO DISTRESS.
--- NOTE | 2017-04-25 12:04 | NUR ---
FSBS 220. 4 UNITS HUMULIN INSULIN ADMINISTERED AT THIS TIME.
--- NOTE | 2017-04-25 14:15 | NUR ---
UNIT #2 PRBC'S INITIATED AT 1410. TOLERATING INFUSION WELL. PATIENTS AT BEDSIDE. NO DISTRESS.
--- NOTE | 2017-04-25 16:40 | NUR ---
#2 UNIT OF PRBC'S COMPLETED INFUSION AT THIS TIME. NO TRANSFUSION REACTION. NO DISTRESS.
--- NOTE | 2017-04-25 17:07 | NUR ---
FSBS 176. 2 UNITS HUMULIN ADMINISTERED PER SLIDING SCALE.
[2017-04-25 17:29] LABS: % SATURATION 6 % (15-55); IRON 19 ug/dl (35-150); TOTAL IRON BIND CAPACITY 292 ug/dl (260-445); UNSAT IRON BIND CAPACITY 273 ug/dl (150-375)
--- NOTE | 2017-04-25 19:31 | NUR ---
PT LYING IN BED. ALERT & ORIENTED. TRAPEZE BAR. TELEMETRY. PT STATES HE HAS A PAIN LEVEL 0/10. CPAP WHEN SLEEPING. LEFT HAND SALINE LOC. 02 @ 2L VIA N/C. FSBS ACHS. UP ADLIB. BED IN LOWEST POSITION AND CALL LIGHT WITHIN REACH.
[2017-04-25 20:39] VITALS: BP 125/55
[2017-04-26] VITALS (10 sets, daily range): BP systolic 108–207; BP diastolic 49–80
--- NOTE | 2017-04-26 01:48 | NUR ---
PT LYING IN BED ON HIS BACK, EYES CLOSED, RESPIRATIONS EVEN AND UNLABORED. PT DOES HAVE C-PAP IN PLACE AND ON. PT IS IN NO ACUTE DISTRESS. CONTINUE TO MONITOR CLOSELY. BED LOW, CALL LIGHT IN REACH, SIDE RAILS X 2, HOB 10 DEGREES.
--- NOTE | 2017-04-26 03:00 | NUR ---
PT LYING IN BED, EYES CLOSED. CHEST RISING AND FALLING. BED IN LOWEST POSITION AND CALL LIGHT WITHIN REACH.
--- NOTE | 2017-04-26 05:06 | NUR ---
PT LYING IN BED. EYES CLOSED. RESP. EVEN. BED IN LOWEST POSITION AND CALL LIGHT WITHIN REACH.
[2017-04-26 05:30] LABS: BASOPHILS 0.6 % (0-2); EOSINOPHILS 3.5 % (0-7); HEMATOCRIT 32.3 % (42.0-54.0); HEMOGLOBIN 9.9 g/dL (13.5-17.5); IMMATURE GRANULOCYTES 0.6 % (0-5); LYMPHOCYTES 13.3 % (15-50); MCH 22.2 pg (26.0-34.0); MCHC 30.7 g/dL (31.0-37.0); MCV 72.6 fL (80.0-100.0); MEAN PLATELET VOLUME 9.4 fL (7.4-10.4); PLATELET COUNT 280 10x3/uL (130-400); RBC 4.45 10x6/uL (4.20-6.10); RDW 21.9 % (11.5-14.5); WBC 5.4 10x3/uL (4.8-10.8)
[2017-04-26 05:50] LABS: INR 1.43 (0.85-1.17); PROTIME 17.3 SECONDS (11.6-15.0)
[2017-04-26 05:58] LABS: ANION GAP 14.6 mmol/L (8-16); CALCIUM 8.6 mg/dL (8.5-10.1); CARBON DIOXIDE 24.2 mmol/L (21.0-32.0); CREATININE - SERUM 1.7 mg/dL (0.6-1.3); POTASSIUM - SERUM 3.8 mmol/L (3.5-5.1); PROTEIN - SERUM 7.2 g/dL (6.4-8.2)
--- NOTE | 2017-04-26 07:30 | NUR ---
AM ROUNDS COMPLETED. PT RESTING IN BED WITH CPAP MASK IN PLACE. RR NONLABORED. PT DENIES ANY CURRENT PAIN OR NEEDS. WILL CPOC.
--- NOTE | 2017-04-26 12:14 | NUR ---
FSBS 181. PT DENIED NEED FOR THE 2 UNITS R/T BEING NPO FOR CT PROCEDURE AND NOT BEING ABLE TO EAT LUNCH. PT JUST FINISHED SHOWER AND HAD COMPLETE LINEN CHANGE. TELEMETRY BACK IN PLACE. PT DENIES ANY PAIN OR CURRENT NEEDS. WILL CPOC.
--- NOTE | 2017-04-26 14:30 | NUR ---
PT LEAVING ROOM NOW FOR CT PROCEDURE.
--- NOTE | 2017-04-26 16:20 | NUR ---
PT BACK FROM PROCEDURE. VSS AND BEING MONITERED PER POLICY. DRSG TO BACK FLANK CDI WILL CONTINUE TO WATCH FOR BLEEDING FROM BIOPSY. PT READY TO EAT LUNCH. FSBS 154 PT DENIED NEED FOR COVERAGE OF 2 UNITS AND STATES HE NORMALLY WOULDNT TAKE ANY. AT BEDSIDE, SIDE RAILS X2, BED IN LOWEST, CL IN REACH. WILL CTM.
--- NOTE | 2017-04-26 17:08 | NUR ---
VSS AND STILL BEING MONITERED/RECORDED PER POLICY. BACK FLANK DRSG STILL CDI NO S/S OF BLEEDING OR HEMATOMA NOTED. PT JUST FINISHED DINNER AND STATED IT WAS VERY GOOD. DENIES ANY CURRENT PAIN OR NEEDS. CL IN REACH, BED IN LOWEST, SIDE RAILS X2. WILL CPOC.
--- NOTE | 2017-04-26 21:22 | NUR ---
RESTING WITH BIPAP ON. DENIES PAIN OR ANY NEEDS. ELECTRONIC SCIENCE TEACHER REPORTED HIS B/P AT 207/78. ADMIN HIS SCHED METOPROLOL 100MG AND WILL RECHECK B/P. ADMIN 2 UNITS OF HUMULIN R INSULIN FOR BS 194. REQUESTED LIGHTS OFF AND DOOR CLOSED TO SLEEP.
--- NOTE | 2017-04-27 01:30 | NUR ---
RESTING QUIETLY WITH EYES CLOSED. RR EVEN U/L. CL IN REACH.
--- NOTE | 2017-04-27 05:30 | NUR ---
ADMIN SCHED MEDS AND 2 UNITS HUMULIN R FOR BS 167.
[2017-04-27 06:07] LABS: BASOPHILS 0.4 % (0-2); EOSINOPHILS 2.9 % (0-7); HEMATOCRIT 33.4 % (42.0-54.0); HEMOGLOBIN 10.2 g/dL (13.5-17.5); IMMATURE GRANULOCYTES 0.4 % (0-5); LYMPHOCYTES 18.4 % (15-50); MCH 22.4 pg (26.0-34.0); MCHC 30.5 g/dL (31.0-37.0); MCV 73.2 fL (80.0-100.0); MONOCYTES 12.2 % (2-11); NEUTROPHILS 65.7 % (40-80); PLATELET COUNT 292 10x3/uL (130-400); RBC 4.56 10x6/uL (4.20-6.10); RDW 22.1 % (11.5-14.5); WBC 5.5 10x3/uL (4.8-10.8)
[2017-04-27 06:22] VITALS: BP 145/64
[2017-04-27 06:23] LABS: INR 1.4 (0.85-1.17)
[2017-04-27 06:39] LABS: ALBUMIN 3.2 g/dL (3.4-5.0); ANION GAP 15.3 mmol/L (8-16); BILIRUBIN - TOTAL 0.97 mg/dL (0.2-1.3); CALCIUM 8.6 mg/dL (8.5-10.1); CARBON DIOXIDE 25.7 mmol/L (21.0-32.0); CREATININE - SERUM 1.5 mg/dL (0.6-1.3); PROTEIN - SERUM 7.6 g/dL (6.4-8.2)
--- NOTE | 2017-04-27 08:14 | NUR ---
ASSESSMENT COMPLETED. TELEMERTY SHOWS CAF. O2 AT 4 L/M PER C PAP. PT IS [place]. DRSG TO BACK FROM CELESTINA WINN BIPOSY DRY AND INTACT. SL TO LEFT HAND. PT IS UP AB BELINDA. CALL LIGHT IN REACH WITH SR UP. WILL MONITOR
[2017-04-27 08:27] VITALS: BP 131/53
--- NOTE | 2017-04-27 08:31 | NUR ---
Patient Name: HUMBLE QUEEN Admission Status: ER Accout number: [id number] Admission Date: 04-23-2017 : 1940 Admission Diagnosis:CHEST PAIN, UNSPECIFIED Attending: TELMA Current LOS: 4 Anticipated DC Date: 04-27-2017 Planned Disposition: Home Primary Insurance: MEDICARE A & B Discharge Planning Comments: CM MET WITH PATIENT TO DISCUSS DISCHARGE PLANNING/NEEDS. PATIENT STATED THAT HE LIVES AT HOME WITH HIS LEORA AND SHE WILL BE HIS TRANSPORTATION HOME. [phone] IS THEIR HOME NUMBER AND [phone] IS HER CELL NUMBER. PATIENT DENIES HOME HEALTH OR ANY OTHER COMMUNITY NEEDS. I HAVE MADE MYSELF AVAILABLE IN CASE THIS CHANGES PRIOR TO DISCHARGE. Director Of Distance Learning: Annmarie Connolly Is the patient Alert and Oriented? Yes * How many steps to enter\exit or inside your home? 2, RAIL * PCP DR DAILY * Pharmacy [facility] [address] * Preadmission Environment Home with Family * ADLs Independent * Equipment None * List name and contact numbers for known caregivers / representatives who currently or will assist patient after discharge: LEORA QUEEN, SPOUSE [phone] (HOME) OR [phone] (CELL) * Community resources currently utilized None * Additional services required to return to the preadmission environment? No * Can the patient safely return to the preadmission environment? Yes * Has this patient been hospitalized within the prior 30 days at any hospital? Yes
--- NOTE | 2017-04-27 10:39 | NUR ---
PT DISCHARGED. IV DCD WITH TIP INTACT. TO CAR PER WHEELCHAIR
[2017-04-27 12:17] LABS: HAPTOGLOBIN 273 mg/dL (34-200)
== END 2017-04-27 10:40 | disposition home or self-care (01) | DRG 811 ==
LOC: D.ER 12:33 → D.M2 17:39
PROVIDERS: Family Medicine; General Practice; Internal Medicine Hematology & Oncology; Nurse Practitioner Family; ADMIT Family Medicine
PROC: 07DR3ZX Extraction of Iliac Bone Marrow, Percutaneous Approach, Diagnostic (ICD-10-PCS; principal; 2017-04-26 14:50)
DX: D50.0 Iron deficiency anemia secondary to blood loss (chronic) (principal); I50.23 Acute on chronic systolic (congestive) heart failure; K29.71 Gastritis, unspecified, with bleeding; I13.0 Hypertensive heart and chronic kidney disease with heart failure and stage 1 through stage 4 chronic kidney disease, or unspecified chronic kidney disease; Z68.43 Body mass index [BMI] 50.0-59.9, adult; N18.9 Chronic kidney disease, unspecified; E11.22 Type 2 diabetes mellitus with diabetic chronic kidney disease; I48.2 Chronic atrial fibrillation; Z79.01 Long term (current) use of anticoagulants; I34.0 Nonrheumatic mitral (valve) insufficiency; K21.9 Gastro-esophageal reflux disease without esophagitis; Z86.73 Personal history of transient ischemic attack (TIA), and cerebral infarction without residual deficits; E66.01 Morbid (severe) obesity due to excess calories; Z85.46 Personal history of malignant neoplasm of prostate; Z95.0 Presence of cardiac pacemaker

== ENCOUNTER 2018-04-10 09:29 | Inpatient (IN) | payer MEDICARE, BC ==
[~2018-04-10] VITALS: Ht 185.4 cm; Wt 190.9 kg
--- NOTE | ~2018-04-10 | EC ---
PATIENT:HUMBLE QUEEN DATE OF SERVICE: 04/10/18 SEX: M MEDICAL RECORD: [id number] DATE OF : [birth year] LOCATION:D.M2 D.212 AGE OF PATIENT: 77 ADMISSION DATE: 04/10/18 REFERRING PHYSICIAN: INTERPRETING PHYSICIAN: NATHAN LOUIS MD ECHOCARDIOGRAM REPORT ECHO CHARGES 4 ECHO COMPLETE Date: 04/11 CLINICAL DIAGNOSIS: CHF ECHOCARDIOGRAPHIC MEASUREMENTS (adult normal given) AC root (d.<3.7cm) 3.4 cm LV Septum d (<1.2 cm> 1.4 cm Valve Excursion 2.1 cm LV Septum (systole) 2.2 cm Left Atria (s.<4.0cm> 5.6 cm LVPW d(<1.2cm) 1.5 cm RV (d.<2.3cm) 3.1 cm LVPW (sytole) 2.7 cm LV diastole(<5.6CM) 7.0 cm MV E-F(>70mm/sec) cm LV systole 4.1 cm LVOT Diameter 2.2 cm MV exc.(>10mm) cm Est.ejection fraction (50-75%) % DOPPLER: LVIT cm/sec A cm/sec E 147 cm/sec LA cm/sec RVSP 22.1 mmHg LVOT 112 cm/sec AOP1/2T m/s Asc. Ao 160 cm/sec RVOT 89.0 cm/sec RA cm/sec PA 87.0 cm/sec AV Gradient Peak 10.3 mmHg AV Mean 5.5 mmHg AV Area 2.4 cm MV Gradient Peak 9.2 mmHg MV Mean 3.1 mmHg MV Area cm COMMENTS: Senior Premium Auditor: 1 RAÚL BUFFALO Pole Shaver: 4 Dr. Louis TAPE# PACS Pericardial Effusion Y DATE OF SERVICE: FINDINGS: This is a technically difficult study. Endocardial structures are not well visualized. Left ventricular systolic function is difficult to assess, but appears to be mild to moderately reduced in the 35% to 40% range. The patient has a moderate pericardial effusion without tamponade physiology. The patient's left atrium appears to be dilated as well as the right atrium and right ventricle. The RVSP was difficult to evaluate. We did not get good TR windows. 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 ECHOCARDIOGRAM REPORT [id number] HUMBLE QUEEN A Repeat study with contrast would be reasonable. TRANSINT:[id number] Voice Confirmation ID: [id number] DOCUMENT ID: [id number] NATHAN LOUIS MD at 1127 CC: [id number] DICTATION DATE: 04/12/18 0858 RICE FIELD WORKER: 04/12/18 1038 DIS IN 04/12/18 [id number] [place] [address]
[2018-04-10] MEDS ORDERED: METFORMIN HCL500 M1 PO (10:45)
[2018-04-10] MEDS ORDERED: COUMADIN3 MG PO (10:47)
[2018-04-10] MEDS ORDERED: COUMADIN6 MG PO (10:48)
[2018-04-10 11:47] VITALS: BP 105/70; BMI 55.5
[2018-04-10 12:54] LABS: BASOPHILS 0.5 % (0-2); EOSINOPHILS 2.5 % (0-7); HEMATOCRIT 26.2 % (42.0-54.0); IMMATURE GRANULOCYTES 0.3 % (0-5); LYMPHOCYTES 10.5 % (15-50); MCH 21.6 pg (26.0-34.0); MCHC 30.5 g/dL (31.0-37.0); MCV 70.8 fL (80.0-100.0); MEAN PLATELET VOLUME 9.4 fL (7.4-10.4); MONOCYTES 11.4 % (2-11); NEUTROPHILS 74.8 % (40-80); PLATELET COUNT 275 10x3/uL (130-400); RDW 19.1 % (11.5-14.5); WBC 7.5 10x3/uL (4.8-10.8)
[2018-04-10 13:14] LABS: INR 1.64 (0.85-1.17); PROTIME 18.9 SECONDS (11.6-15.0)
[2018-04-10 13:33] LABS: ALBUMIN 3.6 g/dL (3.4-5.0); ALKALINE PHOSPHATASE 122 U/L (46-116); ALT (SGPT) 20 U/L (10-68); BILIRUBIN - TOTAL 0.72 mg/dL (0.2-1.3); CALC OSMOLALITY 300 mosm/kg (275-300); CALCIUM 8.2 mg/dL (8.5-10.1); CARBON DIOXIDE 27.5 mmol/L (21.0-32.0); CHLORIDE - SERUM 99 mmol/L (98-107); CREATININE - SERUM 2.7 mg/dL (0.6-1.3); GLUCOSE 167 mg/dL (74-106); POTASSIUM - SERUM 4.6 mmol/L (3.5-5.1); PROTEIN - SERUM 6.8 g/dL (6.4-8.2); SODIUM 133 mmol/L (136-145); TROPONIN-I < 0.017 ng/mL (0.000-0.060); UREA NITROGEN 99 mg/dL (7-18); eGFR NON AFRICAN AMERICAN 25 mL/min (90-120)
[2018-04-10 15:20] VITALS: BP 123/55
[2018-04-10 19:52] VITALS: BP 168/60
[2018-04-11 00:32] VITALS: BP 114/43
[2018-04-11 05:07] VITALS: BP 111/47
[2018-04-11 07:10] LABS: BASOPHILS 0.8 % (0-2); EOSINOPHILS 4.3 % (0-7); HEMATOCRIT 25.4 % (42.0-54.0); HEMOGLOBIN 7.6 g/dL (13.5-17.5); IMMATURE GRANULOCYTES 0.3 % (0-5); LYMPHOCYTES 11.9 % (15-50); MCHC 29.9 g/dL (31.0-37.0); MCV 70.2 fL (80.0-100.0); MEAN PLATELET VOLUME 8.7 fL (7.4-10.4); MONOCYTES 13.9 % (2-11); NEUTROPHILS 68.8 % (40-80); PLATELET COUNT 272 10x3/uL (130-400); RBC 3.62 10x6/uL (4.20-6.10); WBC 7.6 10x3/uL (4.8-10.8)
[2018-04-11 07:22] LABS: INR 1.93 (0.85-1.17); PROTIME 21.5 SECONDS (11.6-15.0)
[2018-04-11 07:24] LABS: D-DIMER-QUANTITATIVE 1.12 ug/mLFEU (0.20-0.54)
[2018-04-11 07:35] LABS: ALBUMIN 3.2 g/dL (3.4-5.0); ALKALINE PHOSPHATASE 112 U/L (46-116); ALT (SGPT) 18 U/L (10-68); BILIRUBIN - TOTAL 0.75 mg/dL (0.2-1.3); CALC OSMOLALITY 304 mosm/kg (275-300); CALCIUM 8.3 mg/dL (8.5-10.1); CHLORIDE - SERUM 100 mmol/L (98-107); CREATINE KINASE 17 UL (21-232); CREATININE - SERUM 2.8 mg/dL (0.6-1.3); GLUCOSE 142 mg/dL (74-106); POTASSIUM - SERUM 4.4 mmol/L (3.5-5.1); SODIUM 135 mmol/L (136-145); UREA NITROGEN 105 mg/dL (7-18); VANCOMYCIN - RANDOM 14.2 ug/mL (10.0-20.0); eGFR NON AFRICAN AMERICAN 24 mL/min (90-120)
[2018-04-11 07:37] LABS: TROPONIN-I < 0.017 ng/mL (0.000-0.060)
[2018-04-11 08:10] VITALS: BP 109/72
[2018-04-11 09:17] LABS: CREATININE - URINE 60.6 mg/dL (30-125); POTASSIUM - URINE 25.4 MMOL/L (12.0-62.0); PROTEIN - URINE 8.2 mg/dL (0.0-11.9)
[2018-04-11 09:40] LABS: HEMATOCRIT 25.8 % (42.0-54.0); HEMOGLOBIN 7.9 g/dL (13.5-17.5)
[2018-04-11 10:39] VITALS: Ht 185.4 cm; Wt 190.9 kg
[2018-04-11 11:02] VITALS: BP 112/42
[2018-04-11 13:36] LABS: APPEARANCE CLEAR (CLEAR); BILIRUBIN NEGATIVE (NEGATIVE); COLOR YELLOW (YELLOW); GLUCOSE NEGATIVE (NEGATIVE); KETONE NEGATIVE (NEGATIVE); NITRITE NEGATIVE (NEGATIVE); PROTEIN NEGATIVE (NEGATIVE); UROBILINOGEN NORMAL (NORMAL)
[2018-04-11 14:47] VITALS: BP 114/59
[2018-04-11 20:56] VITALS: BP 100/64
[2018-04-11 23:51] LABS: HEMATOCRIT 28.4 % (42.0-54.0); HEMOGLOBIN 8.9 g/dL (13.5-17.5)
[2018-04-12 00:46] VITALS: BP 138/69
[2018-04-12 05:03] VITALS: BP 117/54
[2018-04-12 05:25] LABS: BASOPHILS 0.6 % (0-2); EOSINOPHILS 6.4 % (0-7); HEMATOCRIT 28.1 % (42.0-54.0); HEMOGLOBIN 8.8 g/dL (13.5-17.5); IMMATURE GRANULOCYTES 0.3 % (0-5); LYMPHOCYTES 12.3 % (15-50); MCH 22.4 pg (26.0-34.0); MCHC 31.3 g/dL (31.0-37.0); MCV 71.5 fL (80.0-100.0); MONOCYTES 12.9 % (2-11); NEUTROPHILS 67.5 % (40-80); PLATELET COUNT 290 10x3/uL (130-400); RBC 3.93 10x6/uL (4.20-6.10); RDW 19.4 % (11.5-14.5); WBC 6.9 10x3/uL (4.8-10.8)
[2018-04-12 05:38] LABS: INR 1.79 (0.85-1.17); PROTIME 20.2 SECONDS (11.6-15.0)
[2018-04-12 05:46] LABS: TOTAL IRON BIND CAPACITY 315 ug/dl (260-445)
[2018-04-12 05:57] LABS: ALBUMIN 3.3 g/dL (3.4-5.0); ANION GAP 13.3 mmol/L (8-16); BILIRUBIN - TOTAL 1.22 mg/dL (0.2-1.3); CALCIUM 8.5 mg/dL (8.5-10.1); CARBON DIOXIDE 26.1 mmol/L (21.0-32.0); CREATININE - SERUM 2.5 mg/dL (0.6-1.3); POTASSIUM - SERUM 4.4 mmol/L (3.5-5.1); PROTEIN - SERUM 7.3 g/dL (6.4-8.2); URIC ACID 11.3 mg/dL (2.6-7.2); VANCOMYCIN - RANDOM 19.1 ug/mL (10.0-20.0)
[2018-04-12 06:21] LABS: % SATURATION 19 % (15-55); IRON 62 ug/dl (35-150); UNSAT IRON BIND CAPACITY 263 ug/dl (150-375)
[2018-04-12 06:36] LABS: ERYTHROCYTE SEDIMENTATION RATE 48 mm/hr (0-20)
[2018-04-12 09:28] LABS: HEMATOCRIT 28.2 % (42.0-54.0); HEMOGLOBIN 8.8 g/dL (13.5-17.5)
[2018-04-12 13:17] LABS: OSMOLALITY - URINE 317 (())
[2018-04-12 15:16] LABS: HEMATOCRIT 29.4 % (42.0-54.0); HEMOGLOBIN 9.1 g/dL (13.5-17.5)
[2018-04-12] MEDS ORDERED: COUMADIN2 MG PO (18:33)
[2018-04-12] MEDS ORDERED: DOXYCYCLINE HY100 M2 PO (18:36)
[2018-04-13 09:21] LABS: FOLATE (FOLIC ACID) - SERUM 7.9 ng/mL (>3.0)
[2018-04-13 18:09] LABS: SPE - A/G RATIO 1.1 (0.7-1.7); SPE - ALBUMIN 3.3 g/dL (2.9-4.4); SPE - ALPHA-1 GLOBULIN 0.3 g/dL (0.0-0.4); SPE - ALPHA-2 GLOBULIN 0.8 g/dL (0.4-1.0); SPE - M-SPIKE Not Observed g/dL (Not Observed); SPE - TOTAL PROTEIN 6.4 g/dL (6.0-8.5)
[2018-04-13 19:09] LABS: UPE RAND - ALBUMIN 61.5 % (()); UPE RAND - ALPHA 1 GLOBULIN 4.1 % (()); UPE RAND - ALPHA 2 GLOBULIN 2.8 % (()); UPE RAND - BETA GLOBULIN 11.1 % (()); UPE RAND - GAMMA GLOBULIN 20.4 % (())
== END 2018-04-12 20:37 | disposition home or self-care (01) | DRG 291 ==
LOC: D.M2 09:29 → D.SDCHOLD 09:29 → D.M2 04-12 20:37
PROVIDERS: Family Medicine; Internal Medicine; Internal Medicine Pulmonary Disease
DX: I13.0 Hypertensive heart and chronic kidney disease with heart failure and stage 1 through stage 4 chronic kidney disease, or unspecified chronic kidney disease (principal); J18.9 Pneumonia, unspecified organism; I50.23 Acute on chronic systolic (congestive) heart failure; N17.9 Acute kidney failure, unspecified; D62 Acute posthemorrhagic anemia; J98.11 Atelectasis; I42.9 Cardiomyopathy, unspecified; N18.9 Chronic kidney disease, unspecified; E11.22 Type 2 diabetes mellitus with diabetic chronic kidney disease; I48.2 Chronic atrial fibrillation; I27.20 Pulmonary hypertension, unspecified; G47.33 Obstructive sleep apnea (adult) (pediatric); I08.1 Rheumatic disorders of both mitral and tricuspid valves; M85.80 Other specified disorders of bone density and structure, unspecified site; I25.10 Atherosclerotic heart disease of native coronary artery without angina pectoris; E78.5 Hyperlipidemia, unspecified; I95.9 Hypotension, unspecified; Z95.0 Presence of cardiac pacemaker; Z86.73 Personal history of transient ischemic attack (TIA), and cerebral infarction without residual deficits

== ENCOUNTER → 2018-04-17 10:39 | Outpatient (CLI) | payer MEDICARE, BC ==
[2018-04-11 10:39] VITALS: BMI 55.5
[~2018-04-17 10:39] MED LIST changes: +COUMADIN3 MG PO; +COUMADIN6 MG PO; +DOXYCYCLINE HY100 M2 PO; +LASIX80 MG PO
== END | disposition home or self-care (01) ==
LOC: D.RAD 10:39
DX: I26.99 Other pulmonary embolism without acute cor pulmonale (principal); J18.9 Pneumonia, unspecified organism; J90 Pleural effusion, not elsewhere classified

== ENCOUNTER 2018-05-23 13:01 | Inpatient (IN) | payer MEDICARE, BC ==
[~2018-05-23] VITALS: Ht 185.4 cm; Wt 181.8 kg
--- NOTE | ~2018-05-23 | HP ---
PATIENT: HUMBLE QUEEN MEDICAL RECORD: [id number] ACCOUNT: [id number] LOCATION:D.MS [address] : [birth year] ADMISSION DATE: 05/23/18 HISTORY AND PHYSICAL EXAMINATION DATE OF ADMISSION: 05/23/2018 CHIEF COMPLAINT: Shortness of breath, chest pain, and lower extremity edema. HISTORY: A 77-year-old white male with multiple medical problems, presents with above symptoms, has been getting worse over the last few days. He states these are symptoms similar to when he was admitted last with pneumonia. He has had some chills. Denies much fever. He has had increased cough, shortness of breath, and some chest pain. He has had increased lower extremity edema. He takes Bumex only as needed, but started taking it regularly for the last few days. In the ER, his chest x-ray suggested mild CHF. He is admitted. PAST MEDICAL AND SURGICAL HISTORY: Stroke in the past, diabetes, hypertension, history of CHF in the past, atrial fibrillation, obstructive sleep apnea, chronic back pain, prostate cancer, and anemia. PAST SURGICAL HISTORY: Cataract repair, pacemaker placement, left total knee arthroplasty, and prostatectomy. ALLERGIES: MORPHINE, CODEINE, AND LATEX. HOME MEDICATIONS: Coumadin 2 mg a day, metoprolol tartrate 100 mg twice a day, metformin XR 500 once a day, allopurinol 100 mg once a day, Bumex 2 mg once a day, and colchicine 0.6 mg p.r.n. gout flare. FAMILY HISTORY: Parents with heart disease and cancer. HABITS: Former smoker. No alcohol or drugs. REVIEW OF SYSTEMS: GENERAL: No major weight changes. HEENT: No particular sinus or allergy problems. RESPIRATORY: He has been admitted with pneumonia in the past. CARDIAC: He has history of atrial fibrillation and history of CHF. GASTROINTESTINAL: He has occasional heartburn. GENITOURINARY: History of prostate cancer, status post prostatectomy. MUSCULOSKELETAL: Chronic back pain. NEUROLOGIC: No migraines or seizures. PSYCHIATRIC: Denies depression or melancholia. PHYSICAL EXAMINATION: VITAL SIGNS: Today, temperature 98.4, pulse 85, respirations 22, blood pressure 143/89, and O2 sat 97% on 2 liters of oxygen. GENERAL: He is awake. He does not appear to be in acute distress. HEENT: Grossly within normal limits. NECK: Supple. No JVD or bruit. HEART: Regular rate and rhythm without murmur. LUNGS: Diminished breath sounds in the bases bilaterally. ABDOMEN: Obese, soft, and nontender. EXTREMITIES: Pitting edema 3+. HISTORY AND PHYSICAL [id number] HUMBLE QUEEN [facility]IES: CBC with white count of 7600, hemoglobin 9.4, and hematocrit 31.3. Basic metabolic panel is okay except BUN 27 and creatinine 1.3. Liver functions are okay. Lactic acid level 1.6. Troponin less than 0.017. ProBNP 1805. Chest x-ray suggests mild CHF. ASSESSMENT: 1. Acute bacterial pneumonia. 2. Mild CHF. 3. History of diabetes. 4. Morbid obesity. PLAN: IV Levaquin and DuoNeb. We will diurese. Stress ulcer prevention and DVT prevention. Other tests or procedures as needed. TRANSINT:[id number] Voice Confirmation ID: [id number] DOCUMENT ID: [id number] GRACE KILGORE MD at 0846 CC: [id number] DICTATION DATE: 05/23/181914 OVEN OPERATOR: 05/23/181952 ADM IN [facility] [address] [id number]
[~2018-05-23 13:01] MED LIST changes: -LASIX80 MG PO
[2018-05-23 13:39] LABS: BASOPHILS 0.5 % (0-2); HEMATOCRIT 31.3 % (42.0-54.0); HEMOGLOBIN 9.4 g/dL (13.5-17.5); IMMATURE GRANULOCYTES 0.3 % (0-5); MCH 21.8 pg (26.0-34.0); MCV 72.6 fL (80.0-100.0); MEAN PLATELET VOLUME 9.2 fL (7.4-10.4); MONOCYTES 13.6 % (2-11); NEUTROPHILS 69.6 % (40-80); PLATELET COUNT 279 10x3/uL (130-400); RBC 4.31 10x6/uL (4.20-6.10); RDW 20.5 % (11.5-14.5); WBC 7.6 10x3/uL (4.8-10.8)
[2018-05-23 13:58] LABS: ALBUMIN 3.5 g/dL (3.4-5.0); ALKALINE PHOSPHATASE 137 U/L (46-116); ALT (SGPT) 26 U/L (10-68); BILIRUBIN - TOTAL 1.03 mg/dL (0.2-1.3); CALC OSMOLALITY 284 mosm/kg (275-300); CALCIUM 8.3 mg/dL (8.5-10.1); CARBON DIOXIDE 31.5 mmol/L (21.0-32.0); CHLORIDE - SERUM 105 mmol/L (98-107); CREATININE - SERUM 1.3 mg/dL (0.6-1.3); GLUCOSE 135 mg/dL (74-106); POTASSIUM - SERUM 3.5 mmol/L (3.5-5.1); PROTEIN - SERUM 7.3 g/dL (6.4-8.2); SODIUM 139 mmol/L (136-145); UREA NITROGEN 27 mg/dL (7-18); eGFR NON AFRICAN AMERICAN 57 mL/min (90-120)
[2018-05-23 14:07] LABS: PRO BNP 1805 pg/mL (0-450)
[2018-05-23 14:09] LABS: TROPONIN-I < 0.017 ng/mL (0.000-0.060)
[2018-05-23 20:00] VITALS: BP 126/47
[2018-05-23 20:12] VITALS: Ht 185.4 cm; Wt 181.8 kg
[2018-05-24 04:00] VITALS: BP 134/59
[2018-05-24 06:05] LABS: BASOPHILS 0.3 % (0-2); EOSINOPHILS 6.8 % (0-7); HEMATOCRIT 28.4 % (42.0-54.0); HEMOGLOBIN 8.4 g/dL (13.5-17.5); IMMATURE GRANULOCYTES 0.3 % (0-5); LYMPHOCYTES 11.6 % (15-50); MCH 21.3 pg (26.0-34.0); MCHC 29.6 g/dL (31.0-37.0); MCV 72.1 fL (80.0-100.0); MEAN PLATELET VOLUME 9.2 fL (7.4-10.4); MONOCYTES 12.4 % (2-11); NEUTROPHILS 68.6 % (40-80); PLATELET COUNT 271 10x3/uL (130-400); RBC 3.94 10x6/uL (4.20-6.10); RDW 20.5 % (11.5-14.5); WBC 6.4 10x3/uL (4.8-10.8)
[2018-05-24 06:17] LABS: INR 1.55 (0.85-1.17); PROTIME 18.1 SECONDS (11.6-15.0)
[2018-05-24 06:19] LABS: ANION GAP 10.1 mmol/L (8-16); CARBON DIOXIDE 28.2 mmol/L (21.0-32.0); CREATININE - SERUM 1.3 mg/dL (0.6-1.3); POTASSIUM - SERUM 3.3 mmol/L (3.5-5.1)
[2018-05-24 08:40] VITALS: BP 157/90
[2018-05-24 13:34] VITALS: BP 142/63
[2018-05-24 16:48] VITALS: BP 166/80
[2018-05-24 21:09] VITALS: BP 146/56
[2018-05-25] VITALS (7 sets, daily range): BP systolic 110–142; BP diastolic 55–91
[2018-05-25 05:47] LABS: INR 1.49 (0.85-1.17); PROTIME 17.5 SECONDS (11.6-15.0)
[2018-05-25 05:55] LABS: CARBON DIOXIDE 28.7 mmol/L (21.0-32.0)
[2018-05-25 06:13] LABS: ANION GAP 11.5 mmol/L (8-16); CALCIUM 7.8 mg/dL (8.5-10.1); CREATININE - SERUM 1.4 mg/dL (0.6-1.3); POTASSIUM - SERUM 3.2 mmol/L (3.5-5.1)
[2018-05-25 06:42] LABS: BASOPHILS 0.5 % (0-2); EOSINOPHILS 8.4 % (0-7); HEMATOCRIT 28.8 % (42.0-54.0); HEMOGLOBIN 8.6 g/dL (13.5-17.5); IMMATURE GRANULOCYTES 0.3 % (0-5); LYMPHOCYTES 11.6 % (15-50); MCH 21.7 pg (26.0-34.0); MCHC 29.9 g/dL (31.0-37.0); MCV 72.5 fL (80.0-100.0); MEAN PLATELET VOLUME 9.1 fL (7.4-10.4); MONOCYTES 13.3 % (2-11); NEUTROPHILS 65.9 % (40-80); PLATELET COUNT 264 10x3/uL (130-400); RBC 3.97 10x6/uL (4.20-6.10); RDW 20.3 % (11.5-14.5)
[2018-05-26 05:23] LABS: BASOPHILS 0.6 % (0-2); HEMATOCRIT 28.4 % (42.0-54.0); HEMOGLOBIN 8.4 g/dL (13.5-17.5); IMMATURE GRANULOCYTES 0.6 % (0-5); LYMPHOCYTES 13.5 % (15-50); MCH 21.4 pg (26.0-34.0); MCHC 29.6 g/dL (31.0-37.0); MCV 72.3 fL (80.0-100.0); MEAN PLATELET VOLUME 9.4 fL (7.4-10.4); MONOCYTES 14.3 % (2-11); PLATELET COUNT 262 10x3/uL (130-400); RBC 3.93 10x6/uL (4.20-6.10); RDW 20.2 % (11.5-14.5); WBC 5.4 10x3/uL (4.8-10.8)
[2018-05-26 05:32] LABS: INR 1.47 (0.85-1.17); PROTIME 17.3 SECONDS (11.6-15.0)
[2018-05-26 05:37] LABS: ANION GAP 11.5 mmol/L (8-16); CREATININE - SERUM 1.4 mg/dL (0.6-1.3); POTASSIUM - SERUM 3.5 mmol/L (3.5-5.1)
[2018-05-26 11:05] VITALS: BP 96/54
[2018-05-26] MEDS ORDERED: LASIX80 MG PO (11:16)
== END 2018-05-26 12:00 | disposition home or self-care (01) | DRG 291 ==
LOC: D.ER 13:01 → D.EDHOLD 15:03 → D.MS 15:03
PROVIDERS: Family Medicine
DX: I11.0 Hypertensive heart disease with heart failure (principal); J96.90 Respiratory failure, unspecified, unspecified whether with hypoxia or hypercapnia; Z68.43 Body mass index [BMI] 50.0-59.9, adult; I50.23 Acute on chronic systolic (congestive) heart failure; Z86.73 Personal history of transient ischemic attack (TIA), and cerebral infarction without residual deficits; E11.9 Type 2 diabetes mellitus without complications; D64.9 Anemia, unspecified; Z95.0 Presence of cardiac pacemaker; I48.2 Chronic atrial fibrillation; G47.33 Obstructive sleep apnea (adult) (pediatric); E66.01 Morbid (severe) obesity due to excess calories

== ENCOUNTER 2018-06-11 15:44 | Inpatient (IN) | payer MEDICARE, BC ==
[~2018-06-11] VITALS: Ht 188 cm; Wt 170.5 kg
[~2018-06-11 15:44] MED LIST changes: +LASIX80 MG PO
[2018-06-11 16:43] VITALS: BP 123/62
[2018-06-11 20:00] VITALS: BP 126/58
[2018-06-12 04:00] VITALS: BP 130/60
[2018-06-12 07:33] LABS: BASOPHILS 0.9 % (0-2); EOSINOPHILS 7.2 % (0-7); HEMATOCRIT 30.5 % (42.0-54.0); IMMATURE GRANULOCYTES 0.3 % (0-5); LYMPHOCYTES 17.4 % (15-50); MCH 21.2 pg (26.0-34.0); MCHC 29.5 g/dL (31.0-37.0); MCV 71.8 fL (80.0-100.0); MEAN PLATELET VOLUME 8.9 fL (7.4-10.4); MONOCYTES 11.6 % (2-11); NEUTROPHILS 62.6 % (40-80); RBC 4.25 10x6/uL (4.20-6.10); RDW 19.8 % (11.5-14.5); WBC 5.9 10x3/uL (4.8-10.8)
[2018-06-12 07:34] LABS: INR 1.34 (0.85-1.17); PROTIME 16.1 SECONDS (11.6-15.0)
[2018-06-12 07:36] LABS: PLATELET COUNT 347 10x3/uL (130-400)
[2018-06-12 07:48] LABS: ALBUMIN 3.3 g/dL (3.4-5.0); ANION GAP 13.8 mmol/L (8-16); BILIRUBIN - TOTAL 0.84 mg/dL (0.2-1.3); CALCIUM 8.8 mg/dL (8.5-10.1); CARBON DIOXIDE 28.4 mmol/L (21.0-32.0); CREATININE - SERUM 1.4 mg/dL (0.6-1.3); MAGNESIUM - SERUM 2.1 mg/dL (1.8-2.4); POTASSIUM - SERUM 3.2 mmol/L (3.5-5.1); PROTEIN - SERUM 7.2 g/dL (6.4-8.2)
[2018-06-12 12:42] VITALS: BP 144/70
[2018-06-12 15:07] VITALS: Ht 188 cm; Wt 170.5 kg
[2018-06-12 16:35] VITALS: BP 137/80
[2018-06-12 22:27] VITALS: BP 153/74
[2018-06-13 05:08] VITALS: BP 104/40
[2018-06-13 06:34] LABS: BASOPHILS 0.8 % (0-2); EOSINOPHILS 7.2 % (0-7); HEMATOCRIT 29.7 % (42.0-54.0); HEMOGLOBIN 8.7 g/dL (13.5-17.5); IMMATURE GRANULOCYTES 0.3 % (0-5); LYMPHOCYTES 13.5 % (15-50); MCH 20.7 pg (26.0-34.0); MCHC 29.3 g/dL (31.0-37.0); MCV 70.7 fL (80.0-100.0); MEAN PLATELET VOLUME 8.6 fL (7.4-10.4); MONOCYTES 13.9 % (2-11); NEUTROPHILS 64.3 % (40-80); PLATELET COUNT 308 10x3/uL (130-400); RDW 19.5 % (11.5-14.5); WBC 6.4 10x3/uL (4.8-10.8)
[2018-06-13 06:49] LABS: INR 1.36 (0.85-1.17); PROTIME 16.3 SECONDS (11.6-15.0)
[2018-06-13 06:59] LABS: ALBUMIN 3.3 g/dL (3.4-5.0); ANION GAP 12.4 mmol/L (8-16); BILIRUBIN - TOTAL 0.76 mg/dL (0.2-1.3); CALCIUM 8.5 mg/dL (8.5-10.1); CARBON DIOXIDE 28.8 mmol/L (21.0-32.0); CREATININE - SERUM 1.2 mg/dL (0.6-1.3); POTASSIUM - SERUM 3.2 mmol/L (3.5-5.1)
[2018-06-13 08:43] VITALS: BP 148/82
[2018-06-13 12:40] VITALS: BP 134/59
[2018-06-13 16:46] VITALS: BP 159/66
[2018-06-13 20:00] VITALS: BP 132/69
[2018-06-14 04:30] VITALS: BP 120/67
[2018-06-14 05:57] LABS: BASOPHILS 0.3 % (0-2); EOSINOPHILS 0 % (0-7); HEMOGLOBIN 8.9 g/dL (13.5-17.5); IMMATURE GRANULOCYTES 0.3 % (0-5); LYMPHOCYTES 9.3 % (15-50); MCHC 29.7 g/dL (31.0-37.0); MCV 70.8 fL (80.0-100.0); MEAN PLATELET VOLUME 8.9 fL (7.4-10.4); NEUTROPHILS 83.1 % (40-80); PLATELET COUNT 324 10x3/uL (130-400); RBC 4.24 10x6/uL (4.20-6.10); RDW 19.4 % (11.5-14.5); WBC 7.1 10x3/uL (4.8-10.8)
[2018-06-14 06:23] LABS: INR 1.35 (0.85-1.17); PROTIME 16.3 SECONDS (11.6-15.0)
[2018-06-14 06:28] LABS: ALBUMIN 3.4 g/dL (3.4-5.0); ANION GAP 12.7 mmol/L (8-16); BILIRUBIN - TOTAL 0.75 mg/dL (0.2-1.3); CALCIUM 8.7 mg/dL (8.5-10.1); CARBON DIOXIDE 27.5 mmol/L (21.0-32.0); CREATININE - SERUM 1.3 mg/dL (0.6-1.3); POTASSIUM - SERUM 4.2 mmol/L (3.5-5.1); PROTEIN - SERUM 7.2 g/dL (6.4-8.2)
[2018-06-14 09:10] VITALS: BP 120/79
[2018-06-14 11:58] VITALS: BP 164/94
[2018-06-14 17:36] VITALS: BP 137/72
[2018-06-15 03:33] VITALS: BP 141/77
[2018-06-15 07:07] LABS: BASOPHILS 0.3 % (0-2); EOSINOPHILS 0.6 % (0-7); HEMATOCRIT 30.2 % (42.0-54.0); HEMOGLOBIN 8.8 g/dL (13.5-17.5); IMMATURE GRANULOCYTES 0.3 % (0-5); LYMPHOCYTES 13.1 % (15-50); MCH 20.8 pg (26.0-34.0); MCHC 29.1 g/dL (31.0-37.0); MCV 71.2 fL (80.0-100.0); MONOCYTES 11.4 % (2-11); NEUTROPHILS 74.3 % (40-80); PLATELET COUNT 332 10x3/uL (130-400); RBC 4.24 10x6/uL (4.20-6.10); RDW 19.6 % (11.5-14.5); WBC 7.8 10x3/uL (4.8-10.8)
[2018-06-15 07:09] LABS: INR 1.45 (0.85-1.17); PROTIME 17.1 SECONDS (11.6-15.0)
[2018-06-15 07:17] LABS: ALBUMIN 3.4 g/dL (3.4-5.0); ANION GAP 14.5 mmol/L (8-16); BILIRUBIN - TOTAL 0.7 mg/dL (0.2-1.3); CALCIUM 8.7 mg/dL (8.5-10.1); CARBON DIOXIDE 27.4 mmol/L (21.0-32.0); CREATININE - SERUM 1.3 mg/dL (0.6-1.3); MAGNESIUM - SERUM 2.2 mg/dL (1.8-2.4); POTASSIUM - SERUM 3.9 mmol/L (3.5-5.1); PROTEIN - SERUM 7.1 g/dL (6.4-8.2)
[2018-06-15 08:48] VITALS: BP 159/84
[2018-06-15 12:30] VITALS: BP 123/70
[2018-06-15 16:56] VITALS: BP 173/94
[2018-06-15 22:31] VITALS: BP 128/65
[2018-06-16 04:00] VITALS: BP 152/73
[2018-06-16 05:24] LABS: BASOPHILS 0.8 % (0-2); EOSINOPHILS 3.5 % (0-7); HEMATOCRIT 33.2 % (42.0-54.0); HEMOGLOBIN 9.9 g/dL (13.5-17.5); IMMATURE GRANULOCYTES 0.3 % (0-5); LYMPHOCYTES 15.3 % (15-50); MCHC 29.8 g/dL (31.0-37.0); MCV 70.3 fL (80.0-100.0); MEAN PLATELET VOLUME 9.1 fL (7.4-10.4); MONOCYTES 12.4 % (2-11); NEUTROPHILS 67.7 % (40-80); RBC 4.72 10x6/uL (4.20-6.10); RDW 19.4 % (11.5-14.5)
[2018-06-16 05:28] LABS: PLATELET COUNT 412 10x3/uL (130-400)
[2018-06-16 05:31] LABS: INR 1.35 (0.85-1.17); PROTIME 16.2 SECONDS (11.6-15.0)
[2018-06-16 05:59] LABS: ALBUMIN 3.8 g/dL (3.4-5.0); ANION GAP 15.8 mmol/L (8-16); BILIRUBIN - TOTAL 0.91 mg/dL (0.2-1.3); CARBON DIOXIDE 27.9 mmol/L (21.0-32.0); CREATININE - SERUM 1.5 mg/dL (0.6-1.3); MAGNESIUM - SERUM 1.9 mg/dL (1.8-2.4); POTASSIUM - SERUM 3.7 mmol/L (3.5-5.1); PROTEIN - SERUM 7.9 g/dL (6.4-8.2)
[2018-06-16 09:13] VITALS: BP 120/93
[2018-06-16 17:18] VITALS: BP 127/63
[2018-06-16 20:00] VITALS: BP 142/81
[2018-06-17 04:00] VITALS: BP 117/63
[2018-06-17 09:10] VITALS: BP 117/52
[2018-06-17 09:15] LABS: BASOPHILS 0.6 % (0-2); HEMATOCRIT 33.2 % (42.0-54.0); HEMOGLOBIN 10.1 g/dL (13.5-17.5); IMMATURE GRANULOCYTES 0.3 % (0-5); LYMPHOCYTES 14.8 % (15-50); MCH 21.2 pg (26.0-34.0); MCHC 30.4 g/dL (31.0-37.0); MCV 69.7 fL (80.0-100.0); MEAN PLATELET VOLUME 8.8 fL (7.4-10.4); MONOCYTES 12.8 % (2-11); NEUTROPHILS 67.5 % (40-80); PLATELET COUNT 420 10x3/uL (130-400); RBC 4.76 10x6/uL (4.20-6.10); RDW 19.1 % (11.5-14.5); WBC 6.9 10x3/uL (4.8-10.8)
[2018-06-17 09:20] LABS: ALBUMIN 3.8 g/dL (3.4-5.0); ANION GAP 12.8 mmol/L (8-16); BILIRUBIN - TOTAL 1.03 mg/dL (0.2-1.3); CALCIUM 9.1 mg/dL (8.5-10.1); CARBON DIOXIDE 31.5 mmol/L (21.0-32.0); CREATININE - SERUM 1.8 mg/dL (0.6-1.3); MAGNESIUM - SERUM 1.8 mg/dL (1.8-2.4); PHOSPHOROUS 4.3 mg/dL (2.5-4.9); POTASSIUM - SERUM 3.3 mmol/L (3.5-5.1); PROTEIN - SERUM 7.9 g/dL (6.4-8.2)
[2018-06-17 16:26] VITALS: BP 133/79
[2018-06-17 20:23] VITALS: BP 114/46
[2018-06-18 04:00] VITALS: BP 125/52
[2018-06-18 06:50] LABS: BASOPHILS 0.8 % (0-2); EOSINOPHILS 5.7 % (0-7); HEMATOCRIT 34.1 % (42.0-54.0); HEMOGLOBIN 10.3 g/dL (13.5-17.5); IMMATURE GRANULOCYTES 0.3 % (0-5); INR 1.36 (0.85-1.17); LYMPHOCYTES 15.1 % (15-50); MCH 20.9 pg (26.0-34.0); MCHC 30.2 g/dL (31.0-37.0); MCV 69.3 fL (80.0-100.0); MONOCYTES 12.4 % (2-11); NEUTROPHILS 65.7 % (40-80); PLATELET COUNT 433 10x3/uL (130-400); PROTIME 16.3 SECONDS (11.6-15.0); RBC 4.92 10x6/uL (4.20-6.10); RDW 19.2 % (11.5-14.5); WBC 7.7 10x3/uL (4.8-10.8)
[2018-06-18 07:00] LABS: ANION GAP 15.3 mmol/L (8-16); CALCIUM 9.1 mg/dL (8.5-10.1); CARBON DIOXIDE 30.9 mmol/L (21.0-32.0); CREATININE - SERUM 1.8 mg/dL (0.6-1.3); POTASSIUM - SERUM 3.2 mmol/L (3.5-5.1)
[2018-06-18 08:08] VITALS: BP 115/67
[2018-06-18 13:40] VITALS: BP 128/70
[2018-06-18 16:41] VITALS: BP 124/52
[2018-06-18 20:00] VITALS: BP 107/56
[2018-06-19 04:08] VITALS: BP 118/58
[2018-06-19 09:13] VITALS: BP 100/53
[2018-06-19 09:58] LABS: ANION GAP 11.2 mmol/L (8-16); CALCIUM 8.8 mg/dL (8.5-10.1); CARBON DIOXIDE 30.2 mmol/L (21.0-32.0); POTASSIUM - SERUM 3.4 mmol/L (3.5-5.1)
[2018-06-19 16:06] VITALS: BP 101/62
[2018-06-19 19:27] VITALS: BP 131/54
[2018-06-20 04:00] VITALS: BP 143/88
[2018-06-20 05:54] LABS: ANION GAP 15.4 mmol/L (8-16); CALCIUM 8.9 mg/dL (8.5-10.1); CARBON DIOXIDE 29.4 mmol/L (21.0-32.0); CREATININE - SERUM 1.8 mg/dL (0.6-1.3); POTASSIUM - SERUM 3.8 mmol/L (3.5-5.1)
[2018-06-20 09:13] VITALS: BP 125/63
[2018-06-20 11:40] VITALS: BP 105/44
[2018-06-20] MEDS ORDERED: LANOXIN125 MCG PO (13:58)
[2018-06-20] MEDS ORDERED: ALDACTONE25 MG PO (13:58)
[2018-06-20] MEDS ORDERED: BUMEX2 MG PO (13:59)
== END 2018-06-20 16:45 | disposition home or self-care (01) | DRG 291 ==
LOC: D.MS 15:44 → D.SDCHOLD 06-19 12:01 → D.MS 06-19 12:02
PROVIDERS: Family Medicine; Internal Medicine
DX: I11.0 Hypertensive heart disease with heart failure (principal); J96.91 Respiratory failure, unspecified with hypoxia; Z68.43 Body mass index [BMI] 50.0-59.9, adult; N17.9 Acute kidney failure, unspecified; I48.91 Unspecified atrial fibrillation; I50.23 Acute on chronic systolic (congestive) heart failure; I42.9 Cardiomyopathy, unspecified; Z79.01 Long term (current) use of anticoagulants; E66.01 Morbid (severe) obesity due to excess calories; E78.5 Hyperlipidemia, unspecified; I34.0 Nonrheumatic mitral (valve) insufficiency; M10.9 Gout, unspecified; Z95.0 Presence of cardiac pacemaker; E11.9 Type 2 diabetes mellitus without complications; G47.30 Sleep apnea, unspecified; D64.9 Anemia, unspecified

== ENCOUNTER 2018-11-07 13:57 | Inpatient (IN) | payer MEDICARE, BC ==
[~2018-11-07] VITALS: Ht 188 cm; Wt 171.8 kg
[~2018-11-07 13:57] MED LIST changes: +ALDACTONE25 MG PO; +LANOXIN125 MCG PO
[2018-11-07 14:29] LABS: BASOPHILS 0.6 % (0-2); EOSINOPHILS 6.1 % (0-7); HEMATOCRIT 28.5 % (42.0-54.0); HEMOGLOBIN 8.4 g/dL (13.5-17.5); IMMATURE GRANULOCYTES 0.5 % (0-5); LYMPHOCYTES 11.8 % (15-50); MCH 21.1 pg (26.0-34.0); MCHC 29.5 g/dL (31.0-37.0); MCV 71.6 fL (80.0-100.0); MEAN PLATELET VOLUME 8.6 fL (7.4-10.4); MONOCYTES 9.6 % (2-11); NEUTROPHILS 71.4 % (40-80); RBC 3.98 10x6/uL (4.20-6.10); RDW 19.1 % (11.5-14.5); WBC 8.7 10x3/uL (4.8-10.8)
[2018-11-07 14:32] LABS: PLATELET COUNT 281 10x3/uL (130-400)
[2018-11-07 14:38] LABS: APTT 38.6 SECONDS (22.8-39.4); INR 1.38 (0.85-1.17); PROTIME 16.4 SECONDS (11.6-15.0)
[2018-11-07 14:53] LABS: ALBUMIN 3.5 g/dL (3.4-5.0); ALKALINE PHOSPHATASE 110 U/L (46-116); ALT (SGPT) 23 U/L (10-68); BILIRUBIN - TOTAL 0.55 mg/dL (0.2-1.3); CALC OSMOLALITY 289 mosm/kg (275-300); CALCIUM 8.2 mg/dL (8.5-10.1); CARBON DIOXIDE 24.5 mmol/L (21.0-32.0); CHLORIDE - SERUM 99 mmol/L (98-107); CREATININE - SERUM 1.7 mg/dL (0.6-1.3); PROTEIN - SERUM 7.3 g/dL (6.4-8.2); SODIUM 134 mmol/L (136-145); UREA NITROGEN 47 mg/dL (7-18); eGFR NON AFRICAN AMERICAN 42 mL/min (90-120)
[2018-11-07 14:55] LABS: CKMB 0.9 U/L (0.0-3.6); CREATINE KINASE 17 UL (21-232); PRO BNP 1489 pg/mL (0-450); TROPONIN-I 0.022 ng/mL (0.000-0.060)
[2018-11-07 14:57] LABS: GLUCOSE 276 mg/dL (74-106)
[2018-11-07 15:30] VITALS: BP 131/63
[2018-11-07 16:30] VITALS: BP 140/62
[2018-11-07 17:30] VITALS: BP 125/59
--- NOTE | 2018-11-07 18:35 | NUR ---
ARRIVED TO THE ROOM VIA XAVI, DR KILGORE IN SEEING THE PATIENT.
[2018-11-07 20:00] VITALS: BP 153/78
[2018-11-07] MEDS ORDERED: COUMADIN3 MG PO (20:21)
[2018-11-07] MEDS ORDERED: COUMADIN2 MG PO (20:23)
[2018-11-08] VITALS (7 sets, daily range): BP systolic 126–158; BP diastolic 58–78; Ht 188 cm; Wt 171.8 kg
[2018-11-08 05:22] LABS: BASOPHILS 0.1 % (0-2); EOSINOPHILS 0 % (0-7); HEMATOCRIT 27.4 % (42.0-54.0); HEMOGLOBIN 8.1 g/dL (13.5-17.5); IMMATURE GRANULOCYTES 0.3 % (0-5); LYMPHOCYTES 7.1 % (15-50); MCH 20.9 pg (26.0-34.0); MCHC 29.6 g/dL (31.0-37.0); MCV 70.8 fL (80.0-100.0); MEAN PLATELET VOLUME 9.3 fL (7.4-10.4); MONOCYTES 1.2 % (2-11); NEUTROPHILS 91.3 % (40-80); PLATELET COUNT 286 10x3/uL (130-400); RBC 3.87 10x6/uL (4.20-6.10); WBC 7.3 10x3/uL (4.8-10.8)
[2018-11-08 05:44] LABS: % SATURATION 3 % (15-55); IRON 15 ug/dl (35-150); TOTAL IRON BIND CAPACITY 384 ug/dl (260-445); UNSAT IRON BIND CAPACITY 369 ug/dl (150-375)
[2018-11-08 05:56] LABS: ALBUMIN 3.4 g/dL (3.4-5.0); ANION GAP 16.7 mmol/L (8-16); BILIRUBIN - TOTAL 0.65 mg/dL (0.2-1.3); CALCIUM 8.2 mg/dL (8.5-10.1); CARBON DIOXIDE 23.1 mmol/L (21.0-32.0); CREATININE - SERUM 1.8 mg/dL (0.6-1.3); POTASSIUM - SERUM 4.8 mmol/L (3.5-5.1); PROTEIN - SERUM 7.2 g/dL (6.4-8.2)
--- NOTE | 2018-11-08 07:10 | NUR ---
PATIENT LAYING IN BED WITH EYES CLOSED AND EVEN RESPIRATIONS. SR UP X 2 BED IN LOW POSITON AND CALL LIGHT IN REACH WILL CONTINUE WITH PLAN OF CARE.
--- NOTE | 2018-11-08 08:07 | HP ---
PATIENT: HUMBLE QUEEN MEDICAL RECORD: [id number] ACCOUNT: [id number] LOCATION:[address] : [birth year] ADMISSION DATE: 11/07/18 PCP: ALBERTINA DAILY HISTORY AND PHYSICAL EXAMINATION DATE OF ADMISSION: 11/07/2018 CHIEF COMPLAINT: Increased cough, congestion, and shortness of breath for 3 days. HISTORY: This is a 78-year-old white male with multiple medical problems. He has been on a trip to [place] for about 9 days and got home 2 days ago. He states he is coming in today because of the same symptoms he had the last time he was admitted. At that time, he was fluid overloaded. He has a history of chronic kidney disease with baseline of around 1.5. He has chronic atrial fibrillation. He has history of anemia that has been worked up by Dr. Santana and his hemoglobin is lower today. He has increased lower extremity edema. In the ER, blood gas showed hypoxia. CBC with normal white count, but hemoglobin of 8.4 with an MCV of 71. D-dimer mildly elevated at 0.68. BUN and creatinine 47 and 1.7. Glucose 276. Troponin 0.022. ProBNP 1489. Chest x-ray was read as stable by the radiologist. He has lower extremity edema with that. He has increased shortness of breath and anemia. He is now admitted. PAST MEDICAL HISTORY: Shows type 2 diabetes; morbid obesity; chronic atrial fibrillation; hypertension; gout; and anemia, worked up by Dr. Santana and about 2 years ago had a bone marrow biopsy that was okay. He has history of cardiomyopathy. Last echocardiogram with an EF of around 40%. He has sleep apnea. History of prostate cancer and chronic kidney disease. He was seen by nephrology on the last couple of admissions that he had into the hospital. PAST SURGICAL HISTORY: Cataract repair, tonsil and adenoidectomy, prostatectomy, left total knee replacement, right partial knee replacement. He has had retinal repair of the right eye. He has had pacemaker placed. ALLERGIES: CODEINE, MORPHINE, AND LATEX RUBBER. HOME MEDICATIONS: Digoxin 0.125 mg once a day, spironolactone 25 mg once a day, Bumex 2 mg once a day, warfarin 3 mg on Monday and Monday and 2 mg on all other days, metformin XR 500 one pill twice a day, allopurinol 100 mg at bedtime, colchicine 0.6 mg p.r.n. gout, Protonix 40 mg a day, and metoprolol 100 mg twice a day. HABITS: No tobacco, alcohol, or drugs. FAMILY HISTORY: Prostate cancer in his father and heart disease. SOCIAL HISTORY: He is and retired. REVIEW OF SYSTEMS: GENERAL: No major weight changes. HEENT: No particular sinus or allergy problems. RESPIRATORY: There is no diagnosis of COPD or asthma. CARDIAC: See above. History of cardiomyopathy, followed by Dr. Dwight Dolan. GASTROINTESTINAL: He has history of reflux. HISTORY AND PHYSICAL [id number] HUMBLE QUEEN GENITOURINARY: History of prostate cancer, status post prostatectomy. MUSCULOSKELETAL: He has history of gout. NEUROLOGIC: No migraines. No seizures. PSYCHIATRIC: No depression or melancholia. PHYSICAL EXAMINATION: VITAL SIGNS: Temperature 97.9, pulse 69, respirations 22, and blood pressure 127/55. GENERAL: He is sitting on side of the bed. He has just gotten there from the Emergency Department. He is awake and alert. at bedside. He is morbidly obese. HEENT: Grossly within normal limits. NECK: Supple. No JVD or bruit. HEART: Irregularly irregular. LUNGS: Fairly clear. No wheeze. ABDOMEN: Obese and nontender. EXTREMITIES: 3 to 4+ edema bilaterally. LABORATORIES: ABG showed pH 7.41, pCO2 of 36.8, and pO2 of 69. CBC with white count of 8700, hemoglobin 8.4, hematocrit 28.5, and MCV is 71. INR 1.38. D-dimer 0.68. Basic metabolic panel; sodium 134, potassium 5.0, chloride 91, CO2 of 24.5, BUN 47, creatinine 1.7, glucose 276, and calcium 8.2. LFTs are normal for him. Troponin 0.022. ProBNP this evening is 1489. DIAGNOSTIC DATA: Chest x-ray shows stable cardiomegaly. Pulmonary vasculature is unremarkable. No consolidation is seen. No pleural effusion or pneumothorax. IMPRESSION: 1. Xaonv-bn-izezvqj congestive heart failure with shortness of breath. 2. History of cardiomyopathy. 3. Chronic atrial fibrillation. 4. Microcytic anemia. 5. Elevated D-dimer. 6. Chronic kidney disease. PLAN: We will diurese. With his creatinine at 1.7, we cannot do CT angiogram of the chest with PE protocol. We will get V/Q scan. We will order echocardiogram. We will check iron level, ferritin, and Hemoccult stools. Other tests or procedures as warranted. TRANSINT:[id number] Voice Confirmation ID: [id number] DOCUMENT ID: [id number] GRACE KILGORE MD at 0807 CC: [id number] DICTATION DATE: 11/07/182104 GLASSWARE VERIFIER: 11/07/188 ADM IN [facility] [address] [place] [address]
--- NOTE | 2018-11-08 11:27 | NUR ---
PATIENT SITTING UP IN BED TALKING ON TELEPHONE. PATIENT IS STABLE AND VS ARE GOOD. WILL CONTINUE TO MONITOR.
--- NOTE | 2018-11-08 23:15 | NUR ---
Received patient in bed, CPAP on, no signs of respiratory distress, telemetry on, rhythm CAFib, PIV in left hand is SL. Deemed to be sleeping at this time.
[2018-11-09] VITALS: BP 152/80
[2018-11-09 04:00] VITALS: BP 116/61
--- NOTE | 2018-11-09 07:10 | NUR ---
REPORT RECIEVED FROM PAMPHLET DISTRIBUTOR. PATIENT LAYING IN BED ON BACK AWAKE, ALERT AND ORIENTED X 3. PATIENT VS ARE GOOD. PATIENT DENIES ANY NEEDS OR PAIN. WILL CONTINUE WITH PLAN OF CARE. SR UP X 2 BED IN LOW POSTION AND CALL LIGHT IN REACH.
--- NOTE | 2018-11-09 07:32 | NUR ---
BG this morning = 532, given 28 Units SS insulin per orders, MD aware patient's BG has been running high, slightly less than last three readings yesterday (544, 566, 550).
[2018-11-09 09:13] VITALS: BP 155/58
--- NOTE | 2018-11-09 10:30 | NUR ---
PATIENT LAYING IN BED ON BACK TH BIPAP ON. EYES CLOSED BREATHING EVENLY . WILL CONTINUE TO MONITOR.
--- NOTE | 2018-11-09 11:45 | NUR ---
BLOOD SUGAR 594. DR DAILY ON UNIT AND TO PATIENTS ROOM. DISCUSSED WITH DR DAILY AND NO NEW ORDERS RECIEVED. MEDICATED PER SLINDING SCALE WITH 28 UNITS OF INSULIN. PATIENT DENIES ANY NEEDS OR PAIN. WILL CONTINUE TO MONITOR.
[2018-11-09 12:30] VITALS: BP 164/62
[2018-11-09 15:40] LABS: ANION GAP 22.2 mmol/L (8-16); CALCIUM 8.1 mg/dL (8.5-10.1); CARBON DIOXIDE 19.8 mmol/L (21.0-32.0)
[2018-11-09 15:46] LABS: CREATININE - SERUM 2.6 mg/dL (0.6-1.3)
--- NOTE | 2018-11-09 16:28 | NUR ---
LAB CALLED FOR CRITICAL LAB VALUE 613. CALLED DR DAILY. ORDER RECIEVED TO PROCEED TREATING WITH SLIDING SCALE AND INCREASE LANTUS AT HS FROM 30 MG TO 40MG. WILL PROCEED AT ORDERED.
[2018-11-09 17:39] VITALS: BP 126/54
--- NOTE | 2018-11-09 19:27 | NUR ---
PT IN BED RESTING ON CPAP MACHINE. DENIES NEEDS AT THIS TIME.
[2018-11-09 20:00] VITALS: BP 128/89
[2018-11-09 23:35] LABS: KETONE - SERUM NEGATIVE (NEGATIVE)
[2018-11-09 23:44] LABS: GLUCOSE 569 mg/dL (74-106)
[2018-11-09 23:55] LABS: APPEARANCE CLEAR (CLEAR); BILIRUBIN NEGATIVE (NEGATIVE); COLOR YELLOW (YELLOW); GLUCOSE 1000 mg/dL (NEGATIVE); KETONE NEGATIVE (NEGATIVE); NITRITE NEGATIVE (NEGATIVE); PROTEIN NEGATIVE (NEGATIVE); SPECIFIC GRAVITY 1.005 (1.005-1.020); UROBILINOGEN NORMAL (NORMAL)
[2018-11-10 00:30] VITALS: BP 131/50
[2018-11-10 04:00] VITALS: BP 106/58
--- NOTE | 2018-11-10 04:20 | NUR ---
RESTING IN BED WITH EYES CLOSED. NO S/S OF DISTRESS OBSERVED. CALL LIGHT IN REACH.
[2018-11-10 05:41] LABS: BASOPHILS 0 % (0-2); EOSINOPHILS 0 % (0-7); HEMATOCRIT 26.9 % (42.0-54.0); HEMOGLOBIN 8.1 g/dL (13.5-17.5); IMMATURE GRANULOCYTES 0.3 % (0-5); LYMPHOCYTES 5.1 % (15-50); MCH 21.1 pg (26.0-34.0); MCHC 30.1 g/dL (31.0-37.0); MCV 70.2 fL (80.0-100.0); MEAN PLATELET VOLUME 9.5 fL (7.4-10.4); MONOCYTES 13.3 % (2-11); NEUTROPHILS 81.3 % (40-80); PLATELET COUNT 295 10x3/uL (130-400); RBC 3.83 10x6/uL (4.20-6.10); RDW 18.9 % (11.5-14.5)
[2018-11-10 05:43] LABS: WBC 9.5 10x3/uL (4.8-10.8)
[2018-11-10 05:47] LABS: INR 1.51 (0.85-1.17); PROTIME 17.6 SECONDS (11.6-15.0)
[2018-11-10 06:13] LABS: ALBUMIN 3.7 g/dL (3.4-5.0); BILIRUBIN - TOTAL 0.52 mg/dL (0.2-1.3); CALCIUM 8.5 mg/dL (8.5-10.1); CARBON DIOXIDE 22.3 mmol/L (21.0-32.0); CREATININE - SERUM 2.1 mg/dL (0.6-1.3); PROTEIN - SERUM 7.5 g/dL (6.4-8.2)
[2018-11-10 06:14] LABS: ANION GAP 20.7 mmol/L (8-16)
[2018-11-10 07:44] VITALS: BP 140/69
--- NOTE | 2018-11-10 08:25 | NUR ---
AM MEDS GIVEN AT THIS TIME. ALSO GAVE 8UNITS OF HUMALOG PER S/S. ALSO PROVIDED PT WITH A FRESH CUP OF WATER. PT UP TO SIDE OF BED, DENIES ANY NEEDS AT THIS TIME. CALL LIGHT IN REACH, NAD NOTED, WILL CONTINUE TO MONITOR.
[2018-11-10 11:38] VITALS: BP 136/62
--- NOTE | 2018-11-10 12:12 | NUR ---
BLOOS SUGAR OF 349, 20UNITS OF HUMULIN GIVEN PER S/S. PT DENIES ANY NEEDS AT THIS TIME. CALL LIGHT IN REACH,NAD NOTED, WILL CONTINUE TO MONITOR.
[2018-11-10] MEDS ORDERED: LANTUS INSULIN10 ML SC (13:47)
[2018-11-10] MEDS ORDERED: MEDROL DOSE PACK4 MG PO (13:48)
--- NOTE | 2018-11-10 16:43 | NUR ---
BLOOD SUGAR OF 478, 28 UNITS GIVEN AND DOCTOR ISAIAS NOTIFIED, NO NEW ORDERS RECEIVED.
--- NOTE | 2018-11-10 17:00 | NUR ---
PROVIDED VERBAL AND WRITTEN DISCHARGE TEACHING TO PT AND SPOUSE. BOTH VERBALIZED UNDERSTANDING REGARDING TEACHING. D/C LT HAND IV WITH CATHETER TIP INTACT. PT LEFT UNIT WITH ALL BELONGINGS, ACCOMPANIED BY . NAD NOTED.
--- NOTE | 2018-11-12 09:18 | MORECARE ---
CASE MANAGEMENT DISCHARGE SUMMARY PATIENT: HUMBLE QUEEN UNIT: [id number] ADM DATE: 11/07/18 AGE: 78 : 42 SEX: M ROOM/BED: D.2128 AUTHOR: GRACE MCDONALD PHYSICIAN: REFERRING PHYSICIAN: ALBERTINA DAILY MD DATE OF SERVICE: 11/12/18 Discharge Plan Patient Name: HUMBLE QUEEN Facility: [facility]:[place] : 1940 Planned Disposition: Home Anticipated Discharge Date: 11/10/18 Discharge Date: 11/10/2018 Expected LOS: 3 Initial Reviewer: [email or web address] Initial Review Date: 11/12/2018 Generated: 11/12/18 10:18 am Coverage Notice Reviewer: [email or web address] David Heller Notice Issued Date-Time: 11/10/2018 16:30 Notice Type: IM Discharge Notice Notice Delivered To: Patient Relationship to Patient: Shock Absorption Floor Layer Name: Delivery Method: HAND - Hand Delivered Nevaeh Days: Prior Verbal Notification: Recipient Understood Notice: Yes Recipient Signature: Yes Med Rec Note Co-signed by Attending: Coverage Notice Comment: Patient Name: HUMBLE QUEEN Page [phone] at 0918 All edits/amendments must be made on the electronic document DICTATION DATE: 11/12/18917 COSTUME SEAMSTRESS: COLT 11/12/18917 RPT#: [id number] DC DATE:11/10/18 STATUS: DIS IN [id number] [place] [address] END OF REPORT
== END 2018-11-10 17:17 | disposition home or self-care (01) | DRG 291 ==
LOC: D.ER 13:57 → D.M2 18:13
PROVIDERS: Family Medicine; ADMIT Family Medicine
DX: I13.0 Hypertensive heart and chronic kidney disease with heart failure and stage 1 through stage 4 chronic kidney disease, or unspecified chronic kidney disease (principal); I50.31 Acute diastolic (congestive) heart failure; J44.1 Chronic obstructive pulmonary disease with (acute) exacerbation; N18.9 Chronic kidney disease, unspecified; E11.22 Type 2 diabetes mellitus with diabetic chronic kidney disease; E66.01 Morbid (severe) obesity due to excess calories; I48.2 Chronic atrial fibrillation; I42.9 Cardiomyopathy, unspecified; D50.9 Iron deficiency anemia, unspecified; J40 Bronchitis, not specified as acute or chronic

== ENCOUNTER → 2019-01-24 08:59 | Outpatient (CLI) | payer MEDICARE, BC ==
[2018-11-08 11:37] VITALS: BMI 49.1
--- NOTE | ~2019-01-24 | ST ---
PATIENT:HUMBLE QUEEN MEDICAL RECORD: [id number] SEX: M LOCATION:[facility] ORDER #: ADMISSION DATE: 01/24/19 AGE OF PATIENT: 78 REFERRING PHYSICIAN: INTERPRETING PHYSICIAN: FRANCISCA VAZQUEZ MD DATE OF SERVICE: 01/24/2019 NUCLEAR STRESS TEST INDICATION: Angina, hypertension, hyperlipidemia, and diabetes. He was exercised on standard Lexiscan protocol with 31 mCi of sestamibi injected at peak stress and 9 mCi was used previously for rest images. FINDINGS: Gated SPECT reveals a dilated cardiomyopathy, ejection fraction 41%. SPECT imaging Cardiolite was used as myocardial fusion agent. There are severe reversible changes throughout the anterior and lateral segments. This includes the basal, mid apical, anterior segments, as well as apical lateral, mid lateral, and basal lateral segments. The degree of reversibility is severe. The amount of myocardium involved is large. OVERALL IMPRESSION: Markedly abnormal nuclear stress test, severe reversibility anterolaterally. Gated SPECT reveals a dilated cardiomyopathy, ejection fraction 41%, suggestive of hemodynamically significant coronary artery disease, most likely multivessel disease. We will proceed with coronary angiography as followup study. TRANSINT:[id number] Voice Confirmation ID: [id number] DOCUMENT ID: [id number] FRANCISCA VAZQUEZ MD CC: ALBERTINA DAILY MD [id number] DICTATION DATE: 01/24/19 1627 APPLIED PSYCHOLOGY PROFESSOR: 01/25/19 0714 DEP CLI 01/24/[address] [address]
[~2019-01-24 08:59] MED LIST changes: +LANTUS INSULIN10 ML SC; +MEDROL DOSE PACK4 MG PO
== END | disposition home or self-care (01) ==
LOC: D.HCCARDIO 08:59
PROVIDERS: ATTEND Internal Medicine Interventional Cardiology
DX: I20.9 Angina pectoris, unspecified (principal)

== ENCOUNTER 2019-02-04 11:13 | Inpatient (IN) | payer MEDICARE, BC ==
[~2019-02-04] VITALS: Ht 188 cm; Wt 165.5 kg
--- NOTE | ~2019-02-04 | HEMODYNAMI ---
PATIENT:HUMBLE QUEEN MEDICAL RECORD: [id number] : 44 LOCATION[facility]12 [id number] ADMISSION DATE: 02/05/19 Generatedon:02/06/201915:59 Patient name: HUMBLE QUEEN Patient #: [id number] SSN: : 1940 Date of study: 02/06/2019 Page: Of Hemodynamic Procedure Report Patient Data Patient Demographics Procedure consent was obtained First Name: HUMBLE Gender: Male Last Name: BERNICE : 1940 Middle Initial: A Age: 78 year(s) Patient #: [id number] Race: Unknown Additional ID: [id number] Contact details [address]: [address] [place] [address] State: [place] City: [place] Zip code: [address] Past Medical History Allergies Allergen Reaction Date Comments Reported Other allergy 02/06/2019 morphine,codeine, latex Admission Admission Data Admission Date: 02/05/2019 Admission Time: 8:15 Room #: D.2112 Lab Results Lab Result Date: 02/06/2019 Lab Result Time: 5:59 Biochemistry Name Units Result Min Max BUN mg/dl 47 --(----)-* 7 18 Creatinine mg/dl 1.4 --(----)*- 0.6 1.3 CBC Name Units Result Min Max Hematocrit % 26.7 *-(----)-- 42 54 Hemoglobin g/dl 8 *-(----)-- 13.5 17.5 Procedure Procedure Types Cath Procedure Diagnostic Procedure LHC LHC w/Coronaries Sedation Charges Moderate Sedation up to 30 minutes PCI Procedure Coronary Stent Coronary Stent Initial PTCA PTCA Additional Procedure Description Procedure Date Procedure Date: 02/06/2019 Procedure Start Time: 15:25 Procedure End Time: 15:52 Procedure Staff Name Function Dwight Farah MD Performing Physician Rainer Pollock RN Nurse Cedric Elizabeth RT Monitor Josefina Gómez RT Scrub Procedure Data Cath Procedure Fluoroscopy Diagnostic fluoroscopy Total fluoroscopy Time: 5.8 time: 5.8 min min Diagnostic fluoroscopy Total fluoroscopy dose: dose: 1509 mGy 1509 mGy Contrast Material Contrast Material Type Amount (ml) Isovue 300 179 Entry Location Entry Primary Successful Side Size Upsize Upsize Entry Closure Succes sful Closure Location (Fr) 1 (Fr) 2 (Fr) Remarks Device Remarks Femoral Right 5 Fr 6 Fr Exoseal artery Short Estimated blood loss: 10 ml Diagnostic catheters Device Type Used For End Catheter Placement MULTIPACK JL 4.0 5Fr Procedure catheter DIAGNOSTIC JL 5 5Fr Procedure catheter ([id number]) MULTIPACK 3DRC 5Fr Procedure catheter MULTIPACK Pigtail 5 Fr Procedure catheter Procedure Complications No complications Procedure Medications Medication Administration Route Dosage Oxygen etCO2 Nasal cannula 2 l/min Lidocaine 2% added to field 20 Heparin Flush Bag added to field 2 bags (1000units/500ml NS) 0.9% NaCl I.V. 100 ml/hr Versed I.V. 1 mg Fentanyl I.V. 50 mcg Versed I.V. 1 mg Fentanyl I.V. 50 mcg Heparin Bolus I.V. 6000 units Integrilin (Bolus I.V. 11.3 ml 2mg/ml) Plavix P.O. 600 mg Hemodynamics Rest HGB: 8 (g/dl) Heart Rate: 111 (bpm) Pressure Samples Time Site Value (mmHg) Purpose Heart Use Rate(bpm) 15:32 LV 147/11,23 Snapshot 98 Gradients Valve Time Site Site Mean SEP/DFP Peak To Heart Use 1 2 (mmHg) (sec/min) Peak Rate (mmHg) (bpm) Aortic 15:32 LV AO 94 Snapshots Pre Cath Intra NCS Post Cath Vital Signs Time Heart Resp SPO2 etCO2 NIBP (mmHg) Rhythm Pain Sedation Rate (ipm) (%) (mmHg) Status Level (bpm) 15:08:43 111 20 98 35.9 133/117(124) Paced 0 (11) 10(A) , No pain 15:13:18 110 18 97 36.6 134/82(110) Paced 0 (11) 10(A) , No pain 15:17:54 109 24 97 34.4 122/76(115) Paced 0 (11) 10(A) , No pain 15:22:27 87 21 94 37.4 137/72(99) Paced 0 (11) 10(A) , No pain 15:27:01 100 23 97 12.7 135/73(99) Paced 0 (11) 10(A) , No pain 15:31:40 97 28 97 21.6 128/76(94) Paced 0 (11) 10(A) , No pain 15:36:12 100 26 96 15.7 122/75(100) Paced 0 (11) 10(A) , No pain 15:40:45 85 23 98 23.9 116/72(89) Paced 0 (11) 10(A) , No pain 15:45:11 107 21 98 36.6 135/82(94) Paced 0 (11) 10(A) , No pain 15:49:45 97 23 98 38.1 115/70(98) Paced 0 (11) 10(A) , No pain Medications Time Medication Route Dose Verified Delivered Reason Notes Effectiveness by by 15:12:43 Oxygen etCO2 2 Dwight Spear used for Nasal l/min St Davon Pollock RN procedure cannula 15:12:53 Lidocaine 2% added 20ml Dwight Quintanilla for local to vial [facility] anesthetic field MD LUCERO 15:12:59 Heparin Flush added 2 Dwight Andersonory used for Bag to bags [facility] procedure (1000units/500ml field MD LUCERO NS) 15:13:09 0.9% NaCl I.V. 100 Dwight Mcgarryie Per physician ml/hr St Davon Pollock RN, MD 15:16:39 Versed I.V. 1 mg Dwight Mcgarryie for sedation St Davon Pollock RN, MD 15:16:45 Fentanyl I.V. 50 Dwight Mcgarryie for sedation mcg St Davon Pollock RN, MD 15:22:27 Versed I.V. 1 mg Dwight Mcgarryie for sedation St Davon Pollock RN, MD 15:22:30 Fentanyl I.V. 50 Dwight Mcgarryie for sedation mcg St Davon Pollock RN, MD 15:36:38 Heparin Bolus I.V. 6,000 Dwight Spear for verif ied units St Davon Pollock RN anticoagulation with dr MD reeves 15:38:55 Integrilin I.V. 11.3 Dwight Mcgarryie for waste d (Bolus 2mg/ml) ml St Davon Pollock RN antiplatelet 8.7 ml therapy of vial 15:55:32 Plavix P.O. [address] for mg [facility] Davon Pollock RN antiplatelet MD therapy Procedure Log Time Note 14:42:34 Time tracking: Regular hours (M-F 7:00 - 5:00) 14:42:39 Plan of Care:Hemodynamics will remain stable., Cardiac rhythm will remain stable., Comfort level will be maintained., Respiratory function will remain adequate., Patient/ family verbilizes understanding of procedure., Procedure tolerated without complication., Recovers from procedure without complications.. 14:45:42 Rainer Pollock RN sent for patient. Start room use. 15:01:41 Patient received from Med II to CCL 1 Alert and oriented. Tansferred to table in Supine position. 15:01:42 Warm blankets applied, and lulu hugger turned on for patient comfort. 15:01:43 Correct patient and procedure confirmed by team. 15:01:45 Signed procedure consent form obtained from patient. 15:01:46 ECG and BP/O2 sat monitors applied to patient. 15:07:09 Baseline sample Acquired. 15:07:09 Vital chart was started 15:07:22 Rhythm: atrial fibrillation 15:07:24 Full Disclosure recording started 15:07:41 H&P Date Dictated: 02/04/2019 Within 30 days and on chart., H&P Addendum completed by physician on day of procedure. (MUST COMPLETE FOR ALL OUTPATIENTS). 15:07:43 Pre-procedure instructions explained to patient. 15:08:13 Pre-op teaching completed and patient verbalized understanding. 15:08:17 Family in waiting room. 15:08:18 Patient NPO since Midnight. 15:08:46 Patient allergic to Other allergymorphine,codeine, latex 15:08:48 Is the patient allergic to Iodine/contrast media? No. 15:08:50 Is patient on blood thinner?No 15:08:51 Patient diabetic? Yes. 15:08:53 If diabetic: On Metformin? Unknown 15:08:55 Previous problem with sedation/anesthesia? No ? 15:08:57 Snore? Yes 15:10:45 Sleep apnea? Yes 15:10:46 Deviated septum? No 15:10:46 Opens mouth fully? Yes 15:10:47 Sticks out tongue? Yes 15:10:49 Airway obstruction? No ? 15:10:52 Dentures? No ? 15:10:56 Pre procedure: right dorsailis pedis pulse 2+ Normal; easily identifiable; not easily obliterated 15:10:59 Modified Lorenzo's test Ulnar > 7 seconds. 15:11:01 Patient pain scale 0/10 ?. 15:11:06 IV patent on arrival in right hand with 0.9% NaCl at [facility]. 15:12:43 Oxygen 2 l/min etCO2 Nasal cannula was administered by Rainer Pollock RN; used for procedure; 15:12:53 Lidocaine 2% 20ml vial added to field was administered by Dwight Farah MD; for local anesthetic; 15:12:59 Heparin Flush Bag (1000units/500ml NS) 2 bags added to field was administered by Dwight Farah MD; used for procedure; 15:13:09 0.9% NaCl 100 ml/hr I.V. was administered by Rainer Pollock RN; Per physician; 15:14:25 Lab Result : BUN 47 mg/dl 15:14:25 Lab Result : Creatinine 1.4 mg/dl 15:14:25 Lab Result : Hemoglobin 8 g/dl 15:14:25 Lab Result : Hematocrit 26.7 % 15:14:27 Lab results completed and on chart. 15:14:29 Right groin area was prepped with chlora-prep and draped in sterile fashion 15:14:30 Alarms reviewed by R. N. 15:14:30 Sharps counted by scrub and verified by R.N. 15:14:34 Use device set Femoral Dx 15:14:34 ACIST Syringe (47238) opened to sterile field. 15:14:35 Bag Decanter (2002S) opened to sterile field. 15:14:35 Medline Cath Pack ([id number]) opened to sterile field. 15:14:36 ACIST Hand Control (36974) opened to sterile field. 15:14:37 ACIST Manifold (16256) opened to sterile field. 15:14:38 DIAGNOSTIC Multipack 5Fr catheter set (NR4480) opened to sterile field. 15:14:39 SHEATH 5FR Ophir (YQB235) opened to sterile field. 15:14:40 DIAGNOSTIC WIRE .035 260cm J wire (769093) opened to sterile field. 15:14:47 Physician arrived 15:14:47 --------ALL STOP TIME OUT------ 15:14:48 Final Timeout: patient, procedure, and site verified with staff and physician. All members of the team are in agreement. 15:14:49 Right groin site verified by team. 15:14:52 Maximum allowable Isovue 300 dose 300ml. Physician notified. (300ml for normal creatinines. For patients with creatinine of 1.7 or higher multiply weight(kg) x 5 divided by creatinine.) 15:14:56 Fire Safety Assessment: A--An alcohol-based skin anteseptic being used preoperatively., C--Open oxygen or nitrous oxide is being used., D--An ESU, laser, or fiber-optic light is being used. 15:14:58 Physical assessment completed. ASA score P 2 - A patient with mild systemic disease as per Dwight Farah MD. 15:15:01 Sedation plan: IV Moderate Sedation Medication:Versed, Fentanyl 15:16:39 Versed 1 mg I.V. was administered by Rainer Pollock RN; for sedation; 15:16:45 Fentanyl 50 mcg I.V. was administered by Rainer Pollock RN; for sedation; 15:22:27 Versed 1 mg I.V. was administered by Rainer Pollock RN; for sedation; 15:22:30 Fentanyl 50 mcg I.V. was administered by Rainer Pollock RN; for sedation; 15:23:28 Zero performed for pressure channel P1 15:23:34 Zero performed for pressure channel P1 15:23:36 Zero performed for pressure channel P1 15:25:52 Procedure started. 15:25:55 Local anesthetic to right femoral artery with Lidocaine 2% by Dwight Farah MD.INITIAL ACCESS ONLY 15:26:03 A 5 Fr sheath was inserted into the Right Femoral artery 15:26:10 A MULTIPACK JL 4.0 5Fr catheter was advanced over the wire and used for Procedure. 15:26:18 Catheter exchanged over wire. 15:27:17 A DIAGNOSTIC JL 5 5Fr catheter ([id number]) was advanced over the wire and used for Procedure. 15:27:22 LCA angiography performed. 15:30:40 Catheter exchanged over wire. 15:30:51 A MULTIPACK 3DRC 5Fr catheter was advanced over the wire and used for Procedure. 15:31:03 RCA angiography performed. 15:31:21 Catheter exchanged over wire. 15:31:26 A MULTIPACK Pigtail 5 Fr catheter was advanced over the wire and used for Procedure. 15:32:34 LV gram done using MCKINNEY 15:32:37 Injector settings: Ml/sec: 10., Volume: 20, 15:32:38 LV hemodynamics recorded. 15:32:46 EF : 50 % 15:32:52 Catheter removed. 15:34:25 WHISPER 300cm guide wire ([id number]) opened to sterile field. 15:34:25 INFLATOR Merit BasixCompak (BI8211) opened to sterile field. 15:34:29 SHEATH 6FR Ophir (JSR601) opened to sterile field. 15:35:27 GUIDE 6FR XBLAD 4.0 catheter ([id number]) opened to sterile field. 15:35:36 Sheath upsized to a 6 Fr Short. 15:35:44 6 Fr XBLAD 4 guide catheter was inserted over the wire 15:36:38 Heparin Bolus 6,000 units I.V. was administered by Rainer Pollock RN; for anticoagulation; verified with dr reeves 15:38:55 Integrilin (Bolus 2mg/ml) 11.3 ml I.V. was administered by Rainer Pollock RN; for antiplatelet therapy; wasted 8.7 ml of vial 15:39:18 WHISPER wire advanced. 15:42:43 Wire advanced across lesion. 15:43:30 Place stent Inflation Number: 1 A COBRA RX 3.5 X 12 Stent was prepped and advanced across the Prox LAD. The stent was deployed at 14 NICOLE for 0:30 (min:sec). 15:44:25 Stent catheter was removed intact over wire. 15:46:08 WHISPER 300cm guide wire ([id number]) opened to sterile field. 15:46:19 Wire removed. contaminated. 15:46:28 WHISPER wire advanced. 15:48:38 Inflate balloon Inflation number: 1 A EMERGE OTW 2.5 x 12 balloon ([id number]) was prepped and advanced across the 1st Diag, then inflated to 6 NICOLE for 0:45 (min:sec). 15:49:18 Inflation number: 2 The EMERGE OTW 2.5 x 12 balloon ([id number]) was reinflated across the 1st Diag, to 8 NICOLE for 0:45 (min:sec). 15:49:45 Balloon removed over the wire. 15:49:45 Wire removed. 15:49:54 EXOSEAL 6Fr (EX600) opened to sterile field. 15:50:07 Sheath removed intact; hemostasis achieved with Exoseal to the Right Femoral artery. 15:50:08 Procedure ended.(Physican Out) 15:50:17 Fluoroscopy time 05.80 minutes. 15:50:28 Fluoroscopy dose: 1509 mGy 15:50:28 Flurop Dose total: 1509 15:50:37 Contrast amount:Isovue 300 179ml. 15:51:00 Sharps counted by scrub and verified by R.N. 15:51:01 Insertion/operative site no bleeding no hematoma. 15:51:04 Post-op/insertion site Right Femoral artery dressed using a 4 x 4 and Tegaderm. 15:51:08 Post right femoral artery:stable, soft, clean and dry 15:51:10 Post Procedure Pulses reassessed and unchanged 15:51:15 Post-procedure physical assessment completed. ASA score P 2 - A patient with mild systemic disease as per Dwight Farah MD. 15:51:18 Post procedure rhythm: unchanged. 15:51:27 Estimated blood loss: 10 ml 15:51:29 Post procedure instruction explained to patient.Patient verbalizes understanding. 15:51:29 Patient needs reinforcement of post procedure teaching. 15:51:51 Procedure type changed to Cath procedure, Diagnostic procedure, LHC, LHC w/Coronaries, Sedation Charges, Moderate Sedation up to 30 minutes, PCI procedure, Coronary Stent, Coronary Stent Initial, PTCA, PTCA Additional 15:52:39 Procedure and supply charges have been captured, reviewed, submitted and are correct. 15:52:42 Procedure Complication : No complications 15:52:44 Vital chart was stopped 15:52:44 See physician's report for complete and final results. 15:52:47 Report given to PCU. 15:52:51 Patient transfered to PCU with Stretcher. 15:52:54 Procedure ended. 15:52:54 Full Disclosure recording stopped 15:52:57 End room use (Document Last) 15:55:32 Plavix 600 mg P.O. was administered by Rainer Pollock RN; for antiplatelet therapy; Intervention Summary Intervention Notes Time ActionType Lesion and Equipment Action# Pressure Duration Attributes Used 15:43:30 Place stent Prox LAD COBRA RX 3.5 1 14 00:30 X 12 Stent 15:48:38 Inflate 1st Diag EMERGE OTW 1 6 00:45 balloon 2.5 x 12 balloon ([id number]) 15:49:18 Reinflate 1st Diag EMERGE OTW 2 8 00:45 balloon 2.5 x 12 balloon ([id number]) Device Usage Item Name Manufacture Quantity Catalog Number [facility] Minimal Lot# / Charge Number Stock Stock Serial# Code ACIST Syringe Acist 1 71282 929889 158160 061727 20 (74640) Medical Systems Inc Bag Decanter Microtek 1 202838 91317 726792 5 () Medical Inc. Medline Cath Medline 1 [id number] 672713 67691 595021 5 Pack ([id number]) ACIST Hand Acist 1 07134 662828 681952 358144 5 Control Medical (66102) Systems Inc ACIST Manifold Acist 1 37344 320800 996608 018802 5 (01223) Medical Systems Inc DIAGNOSTIC Cardinal 1 LY2689 299532 28438 874561 30 Multipack 5Fr Health catheter set (DV6924) SHEATH 5FR Terumo 1 MGL253 747100 359660 424039 5 Ophir (UZG521) DIAGNOSTIC St Woodrow 1 723598 101990 008009 935284 30 WIRE .035 260cm J wire (580346) MULTIPACK JL Cardinal 1 728370 5 4.0 5Fr Health catheter DIAGNOSTIC JL Cardinal 1 [id number] 443468 934508 455991 5 5 5Fr catheter Health (477104D) MULTIPACK 3DRC Cardinal 1 070373 5 5Fr catheter Health MULTIPACK Cardinal 1 506038 5 Pigtail 5 Fr Health catheter WHISPER 300cm Vasquez 2 [id number] 466308 049471 035355 5 guide wire Vascular ([id number]) INFLATOR Merit Merit 1 HH9622 421945 835421 252355 15 [employer] [employer] Medical (ND1721) SHEATH 6FR Terumo 1 NUW702 701598 992319 167765 40 Ophir (AGW742) GUIDE 6FR Cardinal 1 [id number] 745115 070286 298841 3 XBLAD 4.0 Health catheter (88837243) COBRA RX 3.5 X Celonova 1 033-74-19421 798879 334192431 172886 3 [id number] 12 stent Biosciences () EMERGE OTW 2.5 Stambaugh 1 [id number] 749076 498519 511194 5 [id number] x 12 balloon Scientific ([id number]) EXOSEAL 6Fr Cardinal 1 EX600 940645 118614 578032 10 (EX600) Health Signature Audit Marshall Stage Time Signature Unsigned Intra-Procedure 02/06/2019 Cedric Elizabeth 3:59:17 PM RT(R) Signatures Monitor : Cedric Elizabeth RT Signature : Date : Time : [address] [address]
[2019-02-04 11:35] VITALS: BP 126/51; BMI 46.8
[2019-02-04 11:53] LABS: BASOPHILS 0.8 % (0-2); EOSINOPHILS 4.6 % (0-7); HEMATOCRIT 23.9 % (42.0-54.0); IMMATURE GRANULOCYTES 0.3 % (0-5); LYMPHOCYTES 10.7 % (15-50); MCV 65.8 fL (80.0-100.0); MEAN PLATELET VOLUME 8.9 fL (7.4-10.4); NEUTROPHILS 72.6 % (40-80); RBC 3.63 10x6/uL (4.20-6.10); RDW 18.8 % (11.5-14.5); WBC 9.3 10x3/uL (4.8-10.8)
[2019-02-04 12:02] LABS: HEMOGLOBIN 6.7 g/dL (13.5-17.5); MCH 18.5 pg (26.0-34.0); PLATELET COUNT 384 10x3/uL (130-400)
[2019-02-04 12:04] LABS: ANION GAP 15.1 mmol/L (8-16); CALCIUM 8.5 mg/dL (8.5-10.1); CARBON DIOXIDE 25.3 mmol/L (21.0-32.0); CREATININE - SERUM 1.6 mg/dL (0.6-1.3); POTASSIUM - SERUM 4.4 mmol/L (3.5-5.1)
[2019-02-04 12:10] LABS: INR 1.28 (0.85-1.17); PROTIME 15.5 SECONDS (11.6-15.0)
--- NOTE | 2019-02-04 12:25 | NUR ---
RESULTS OF LAB CALLED WITH CRITICAL H AND H AT 6.[address] LOPEZ NOTIFIED WITH ORDERES TO ADMIT TO MED 2 CONSULT PRIMARY AND GI ORDERS CARRIED OUT
[2019-02-04 13:02] VITALS: BP 131/60
--- NOTE | 2019-02-04 13:15 | NUR ---
RECEIVED PT FROM BUTTER PRINTER RECOVERY. PT IS AAO AND UP AD BELINDA. RR EVEN AND UNLABORED ON RA. NO S/S OF DISTRESS NOTED. NS INFUSING @50ML/HR VIA L.HAND PIV. PT DENIES ANY NEEDS AT THIS TIME. CURRENTLY AWAITING TYPE AND CROSS FOR BLOOD TRANSFUSION. WILL CTM. PT CURRENTLY SITTING ON SIDE OF BED. CALL LIGHT W/I REACH.
[2019-02-04 14:18] VITALS: BP 131/60; BMI 48.9
--- NOTE | 2019-02-04 14:18 | NUR ---
ASSESSMENT COMPLETE AT THIS TIME AAOX4 RESP UNLABORED SKIN W/D COLOR WNL TELEMETRY APPLIE CAF RATE 69 WITH PACED BEATS SALINE LOCK INTACT TO LT HAND WITH OCCLUSIVE DRSG SITE FREE OF REDNESS OR EDEMA
--- NOTE | 2019-02-04 14:51 | NUR ---
BEGAN FIRST UNIT OF BLOOD. VSS AND WNL. WILL CTM.
[2019-02-04 15:50] VITALS: BP 134/62
[2019-02-04 19:12] VITALS: Ht 188 cm; Wt 165.5 kg
--- NOTE | 2019-02-04 19:15 | NUR ---
ALERT AND ORIENTED CONT ON SECOND UNIT OF PRBC VS TAKEN AND WATER PROVIDED BED LOW AND LOCKED AND CALL LIGHT IS IN REACH LCTA NO SOB NO SKIN RASH NO FEVER. PT DENIES OTHER NEEDS
[2019-02-04 20:00] VITALS: BP 131/90
[2019-02-05] VITALS: BP 126/53
[2019-02-05 04:00] VITALS: BP 130/55
--- NOTE | 2019-02-05 05:02 | NUR ---
I have reviewed this patient and I concur with the Shift Assessment completed by the Licensed Practical Nurse today this shift.
[2019-02-05 06:25] LABS: ANION GAP 13.4 mmol/L (8-16); CALCIUM 8.7 mg/dL (8.5-10.1); CARBON DIOXIDE 26.6 mmol/L (21.0-32.0); CREATININE - SERUM 1.4 mg/dL (0.6-1.3)
[2019-02-05 06:32] LABS: BASOPHILS 0.5 % (0-2); EOSINOPHILS 6.1 % (0-7); HEMATOCRIT 24.1 % (42.0-54.0); IMMATURE GRANULOCYTES 0.4 % (0-5); LYMPHOCYTES 9.7 % (15-50); MCH 20.1 pg (26.0-34.0); MCHC 29.9 g/dL (31.0-37.0); MCV 67.3 fL (80.0-100.0); MEAN PLATELET VOLUME 8.4 fL (7.4-10.4); MONOCYTES 11.7 % (2-11); NEUTROPHILS 71.6 % (40-80); RBC 3.58 10x6/uL (4.20-6.10); RDW 20.5 % (11.5-14.5); WBC 7.4 10x3/uL (4.8-10.8)
[2019-02-05 06:47] LABS: HEMOGLOBIN 7.2 g/dL (13.5-17.5); PLATELET COUNT 307 10x3/uL (130-400)
--- NOTE | 2019-02-05 07:41 | NUR ---
ARRIVE BACK TO ROOM VIA BED FROM GI LAB. ALERT AND ORIENTED X4. BP-141/64, HR-96, O2-92% RA, T-97.3. DENIES PAIN OR SOB. CONTINUE PLAN OF CARE AND SAFETY PRECAUTIONS.
[2019-02-05 11:33] VITALS: BP 120/57
--- NOTE | 2019-02-05 14:10 | NUR ---
ALERT AND ORIENTED X4. RESTING IN BED. CONSENTS FOR BLOOD TRANSFUSION SIGNED ON CHART. INITIATE UNIT 1 PRBC TRANSFUSION. START RATE AT 75mL/HR. T-97.1, R-20, BP-144/63, HR-74. REMAIN IN ROOM FOR FIRST 15 MINUTES TO MONITOR FOR REACTION. CONTINUE PLAN OF CARE AND SAFETY PRECAUTIONS.
--- NOTE | 2019-02-05 14:26 | NUR ---
ALERT AND ORIENTED X4. RESTING IN BED. T-97, BP-136/63, HR-69, R-20. NO CHANGE. INCREASE TRANSFUSION TO 125ml/HR. CONTINUE TO MONITOR. CONTINUE PLAN OF CARE AND SAFETY PRECAUTIONS.
[2019-02-05 15:59] VITALS: BP 136/60
--- NOTE | 2019-02-05 17:09 | NUR ---
ALERT AND ORIENTED X4. UNIT 1 TRANSFUSION COMPLETE. INITIATE UNIT 2 PRBC TRANSFUSION. BP-139/69, HR-90, R-20, T-97, O2 95% RA. IV TUBING CHANGED PER PROTOCOL. CONTINUE TO MONITOR. CONTINUE SAFETY PRECAUTIONS.
--- NOTE | 2019-02-05 17:24 | NUR ---
ALERT AND ORIENTED X4. SITTING UP ON SIDE OF BED EATING. VISITORS AT BEDSIDE. NO SIGNS OF REACTION TO TRANSFUSION. T-98, BP-136/65, HR-82, O2-97% RA. DENIES ANY NEEDS AT THIS TIME. CONTINUE PLAN OF CARE AND SAFETY PRECAUTIONS.
--- NOTE | 2019-02-05 19:20 | NUR ---
RESUMING CARE PT A&O LAYING IN BED WITH CPAP ON BREATH SOUNDS EVEN UNLABORED, IV IN LFT HAND, NO C/O PAIN OR DISTRESS AT THIS TIME CL IN REACH WILL CONT TO MONITOR
[2019-02-05 20:00] VITALS: BP 130/42
[2019-02-06] VITALS: BP 136/52
--- NOTE | 2019-02-06 03:44 | NUR ---
I have reviewed this patient and I concur with the Shift Assessment completed by the Licensed Practical Nurse today this shift.
[2019-02-06 04:00] VITALS: BP 112/40
[2019-02-06 06:58] LABS: ALBUMIN 3.5 g/dL (3.4-5.0); ANION GAP 9.9 mmol/L (8-16); BILIRUBIN - TOTAL 1.06 mg/dL (0.2-1.3); CALCIUM 8.6 mg/dL (8.5-10.1); CREATININE - SERUM 1.3 mg/dL (0.6-1.3); POTASSIUM - SERUM 3.9 mmol/L (3.5-5.1); PROTEIN - SERUM 6.9 g/dL (6.4-8.2)
[2019-02-06 07:34] LABS: BASOPHILS 0.7 % (0-2); EOSINOPHILS 6.9 % (0-7); HEMATOCRIT 26.7 % (42.0-54.0); IMMATURE GRANULOCYTES 0.4 % (0-5); LYMPHOCYTES 11.7 % (15-50); MCH 20.8 pg (26.0-34.0); MEAN PLATELET VOLUME 8.6 fL (7.4-10.4); MONOCYTES 11.2 % (2-11); NEUTROPHILS 69.1 % (40-80); PLATELET COUNT 310 10x3/uL (130-400); RBC 3.85 10x6/uL (4.20-6.10); RDW 21.7 % (11.5-14.5)
[2019-02-06 07:41] LABS: MCV 69.4 fL (80.0-100.0)
[2019-02-06 09:06] VITALS: BP 136/58
--- NOTE | 2019-02-06 11:04 | NUR ---
ALERT AND ORIENTED X4. SITTING UP IN BED. FAMILY AT BEDSIDE. CONSENTS FOR COMPOUNDER [employer]ODU[employer] SIGNED ON CHART. INITIATE PRBC UNIT 1 TRANSFUSION. START RATE AT 100ml/HR. T-98, BP-148/62, HR-92, O2-95% RA, R-18. REMAIN IN ROOM FOR FIRST 15 MINUTES TO MONITOR FOR REACTION. CONTINUE PLAN OF CARE AND SAFETY PRECAUTIONS.
--- NOTE | 2019-02-06 11:20 | NUR ---
ALERT AND ORIENTED X4. NO REACTION OBSERVED. INCREASE TRANSFUSION RATE TO 150mL/HR. T-97.7, R-18, HR-89, BP-147/66. CONTINUE PLAN OF CARE AND SAFETY PRECAUTIONS.
[2019-02-06 12:20] VITALS: BP 148/62
--- NOTE | 2019-02-06 16:23 | NUR ---
RETURN TO ROOM VIA BED FROM MUSICAL INSTRUMENT MAKER. RT GROIN DRESSING CLEAN DRY INTACT. FREE FROM BLEEDING. FREE FROM HEMATOMA. PULSE PALPABLE BILATERALLY. BP-154/81, HR-113 SINUS TACH. ENCOURAGE TO KEEP RT LEG STRAIGHT AND HEAD FLAT FOR NEXT 4 HOURS DUE TO INCREASE RISK FOR BLEEDING. FAMILY AT BEDSIDE. CONTINUE PLAN OF CARE AND SAFETY PRECAUTIONS.
--- NOTE | 2019-02-06 19:43 | NUR ---
PT IN BED AT BEDSIDE. PT DENIES NEEDS AT THIS TIME.
[2019-02-06 20:00] VITALS: BP 113/53
[2019-02-07 00:03] VITALS: BP 129/60
[2019-02-07 04:00] VITALS: BP 145/59
[2019-02-07 05:50] LABS: BASOPHILS 0.4 % (0-2); EOSINOPHILS 6.2 % (0-7); HEMATOCRIT 30.9 % (42.0-54.0); HEMOGLOBIN 9.4 g/dL (13.5-17.5); IMMATURE GRANULOCYTES 0.5 % (0-5); LYMPHOCYTES 10.4 % (15-50); MCH 21.3 pg (26.0-34.0); MCHC 30.4 g/dL (31.0-37.0); MCV 69.9 fL (80.0-100.0); MEAN PLATELET VOLUME 8.7 fL (7.4-10.4); MONOCYTES 11.9 % (2-11); NEUTROPHILS 70.6 % (40-80); PLATELET COUNT 317 10x3/uL (130-400); RBC 4.42 10x6/uL (4.20-6.10); RDW 22.4 % (11.5-14.5)
[2019-02-07 06:12] LABS: ALBUMIN 3.7 g/dL (3.4-5.0); ANION GAP 15.1 mmol/L (8-16); BILIRUBIN - TOTAL 1.31 mg/dL (0.2-1.3); CALCIUM 8.7 mg/dL (8.5-10.1); CREATININE - SERUM 1.4 mg/dL (0.6-1.3); POTASSIUM - SERUM 4.1 mmol/L (3.5-5.1); PROTEIN - SERUM 7.2 g/dL (6.4-8.2)
[2019-02-07 08:02] VITALS: BP 114/56
[2019-02-07 09:37] VITALS: BP 114/56
--- NOTE | 2019-02-07 09:40 | MORECARE ---
CASE MANAGEMENT DISCHARGE SUMMARY PATIENT: HUMBLE QUEEN UNIT: [id number] ADM DATE: 02/05/19 AGE: 78 : 42 SEX: M ROOM/BED: D.2112 AUTHOR: GRACE MCDONALD PHYSICIAN: REFERRING PHYSICIAN: ALBERTINA DAILY MD DATE OF SERVICE: 02/07/19 Discharge Plan Patient Name: HUMBLE QUEEN Facility: [facility]:[place] : 1940 Planned Disposition: Home Anticipated Discharge Date: Discharge Date: Expected LOS: Initial Reviewer: [email or web address] Initial Review Date: 02/07/2019 Generated: 02/07/19 10:40 am Patient Name: HUMBLE QUEEN Page 35577 at 0940 All edits/amendments must be made on the electronic document DICTATION DATE: 02/07/19938 TREE INSPECTOR: COLT 02/07/19938 RPT#: [id number] DC DATE: STATUS: ADM IN [facility] [address] [place] [address] END OF REPORT
--- NOTE | 2019-02-07 09:48 | MORECARE ---
CASE MANAGEMENT DISCHARGE SUMMARY PATIENT: HUMBLE QUEEN UNIT: [id number] ADM DATE: 02/05/19 AGE: 78 : 42 SEX: M ROOM/BED: D.2112 AUTHOR: GRACE MCDONALD PHYSICIAN: REFERRING PHYSICIAN: ALBERTINA DAILY MD DATE OF SERVICE: 02/07/19 Discharge Plan Patient Name: HUMBLE QUEEN Facility: [facility]:[place] : 1940 Planned Disposition: Home Anticipated Discharge Date: Discharge Date: Expected LOS: Initial Reviewer: [email or web address] Initial Review Date: 02/07/2019 Generated: 02/07/19 10:48 am DCPIA - Discharge Planning Initial Assessment Updated by [email or web address]: Ludwig Womack on 02/07/19 9:47 am * Is the patient Alert and Oriented? Yes * How many steps to enter\exit or inside your home? * PCP DR. DAILY * Pharmacy [address] * Preadmission Environment Home with Family * ADLs Independent * Equipment CPAP Glucometer * Other Equipment [facility] PATIENT, MEDICAL EQUIPMENT PROVIDER PREFERENCE * List name and contact numbers for known caregivers / representatives who currently or will assist patient after discharge: LEORA QUEEN, SPOUSE, * Verbal permission to speak to the caregivers and representatives has been obtained from the patient. N/A * Community resources currently utilized None * Please name any agencies selected above. NONE * Additional services required to return to the preadmission environment? No * Can the patient safely return to the preadmission environment? Yes * Has this patient been hospitalized within the prior 30 days at any hospital? No Last DP export: 02/07/19 8:40 a Patient Name: HUMBLE QUEEN Page [phone] at 0948 All edits/amendments must be made on the electronic document DICTATION DATE: 02/07/19947 TRAVOGRAPH OPERATOR: COLT 02/07/19947 RPT#: [id number] DC DATE: STATUS: ADM IN [facility] [address] [place] [address] END OF REPORT
--- NOTE | 2019-02-07 09:56 | MORECARE ---
CASE MANAGEMENT DISCHARGE SUMMARY PATIENT: HUMBLE QUEEN UNIT: [id number] ADM DATE: 02/05/19 AGE: 78 : 42 SEX: M ROOM/BED: D.2112 AUTHOR: HARRY,DOC PHYSICIAN: REFERRING PHYSICIAN: ALBERTINA DAILY MD DATE OF SERVICE: 02/07/19 Discharge Plan Patient Name: HUMBLE QUEEN Facility: [facility]:[place] : 1940 Planned Disposition: Home Anticipated Discharge Date: Discharge Date: Expected LOS: Initial Reviewer: [email or web address] Initial Review Date: 02/07/2019 Generated: 02/07/19 10:56 am Comments DCP- Discharge Planning Updated by [email or web address]: Ludwig Womack on 02/07/19 8:[address] Patient Name: HUMBLE QUEEN Admission Status: Elective Accout number: [id number] Admission Date: 02-05-2019 : 1940 Admission Diagnosis:ANEMIA, UNSPECIFIED Attending: ALBERTINA DAILY Current LOS: 2 Anticipated DC Date: Planned Disposition: Home Primary Insurance: MEDICARE A & B Discharge Planning Comments: CM MET WITH PT IN ROOM TO DISCUSS DISCHARGE PLANNING AND NEEDS. PT REPORTS LIVING AT HOME INDEPENDENTLY WITH HIS . PT HAS GLUCOMETER, INR METER AND CPAP FROM [facility]. PT HAS NO OUTSIDE SERVICES ASSISTING IN THE HOME. CM DISCUSSED AVAILABILITY OF HOME HEALTH, REHAB SERVICES AND MEDICAL EQUIPMENT. PT DENIES DISCHARGE NEEDS, REPORTS HIS WILL PICK HIM UP FOR DISCHARGE HOME. PATIENT PLANS TO DISCHARGE HOME WITH SPOUSE, REPORTS NO ANTICIPATED DISCHARGE NEEDS AT THIS TIME. CM TO FOLLOW AND ASSIST IF NEEDED. Plant Technician/Control Room Operator: Ludwig Womack DCPIA - Discharge Planning Initial Assessment Updated by [email or web address]: Ludwig Womack on 02/07/19 9:47 am * Is the patient Alert and Oriented? Yes * How many steps to enter\exit or inside your home? * PCP DR. DAILY * Pharmacy [address] * Preadmission Environment Home with Family * ADLs Independent * Equipment CPAP Glucometer * Other Equipment [facility], MEDICAL EQUIPMENT PROVIDER PREFERENCE * List name and contact numbers for known caregivers / representatives who currently or will assist patient after discharge: LEORA QUEEN, SPOUSE, * Verbal permission to speak to the caregivers and representatives has been obtained from the patient. N/A * Community resources currently utilized None * Please name any agencies selected above. NONE * Additional services required to return to the preadmission environment? No * Can the patient safely return to the preadmission environment? Yes * Has this patient been hospitalized within the prior 30 days at any hospital? No Last DP export: 02/07/19 8:48 a Patient Name: HUMBLE QUEEN Page 92469 at 0956 All edits/amendments must be made on the electronic document DICTATION DATE: 02/07/19955 PRINTER ASSISTANT: COLT 02/07/19955 RPT#: [id number] DC DATE: STATUS: ADM IN [facility] [address] [place] [address] END OF REPORT
--- NOTE | 2019-02-07 10:04 | NUR ---
PT EXPRESSES READINESS TO GO HOME. SITTING UP ON THE SIDE OF BED ALERT AND ORIENTED X4 RR EVEN AND UNLABORED. PT DENIES ANY PAIN OR NEEDS AT THIS TIME. BED LOW CALL LIGHT WITHIN REACH. WILL CONTINUE TO MONITOR.
[2019-02-07 10:19] VITALS: BP 114/56
[2019-02-07 12:25] VITALS: BP 142/60
[2019-02-07] MEDS ORDERED: PLAVIX75 MG PO (13:58)
--- NOTE | 2019-02-08 08:28 | MORECARE ---
CASE MANAGEMENT DISCHARGE SUMMARY PATIENT: HUMBLE QUEEN UNIT: [id number] ADM DATE: 02/05/19 AGE: 78 : 42 SEX: M ROOM/BED: D.2112 AUTHOR: HARRY,DOC PHYSICIAN: REFERRING PHYSICIAN: ALBERTINA DAILY MD DATE OF SERVICE: 02/08/19 Discharge Plan Patient Name: HUMBLE QUEEN Facility: [facility]:[place] : 1940 Planned Disposition: Home Anticipated Discharge Date: 02/07/19 Discharge Date: 02/07/2019 Expected LOS: 2 Initial Reviewer: [email or web address] Initial Review Date: 02/07/2019 Generated: 02/08/19 9:28 am Comments DCP- Discharge Planning Updated by [email or web address]: Ludwig Womack on 02/07/19 8:[address] Patient Name: HUMBLE QUEEN Admission Status: Elective Accout number: [id number] Admission Date: 02-05-2019 : 1940 Admission Diagnosis:ANEMIA, UNSPECIFIED Attending: ALBERTINA DAILY Current LOS: 2 Anticipated DC Date: Planned Disposition: Home Primary Insurance: MEDICARE A & B Discharge Planning Comments: CM MET WITH PT IN ROOM TO DISCUSS DISCHARGE PLANNING AND NEEDS. PT REPORTS LIVING AT HOME INDEPENDENTLY WITH HIS . PT HAS GLUCOMETER, INR METER AND CPAP FROM [facility]. PT HAS NO OUTSIDE SERVICES ASSISTING IN THE HOME. CM DISCUSSED AVAILABILITY OF HOME HEALTH, REHAB SERVICES AND MEDICAL EQUIPMENT. PT DENIES DISCHARGE NEEDS, REPORTS HIS WILL PICK HIM UP FOR DISCHARGE HOME. PATIENT PLANS TO DISCHARGE HOME WITH SPOUSE, REPORTS NO ANTICIPATED DISCHARGE NEEDS AT THIS TIME. CM TO FOLLOW AND ASSIST IF NEEDED. Sheet Rock Applier: Ludwig Womack DCPIA - Discharge Planning Initial Assessment Updated by [id number]: Ludwig Womack on 02/07/19 9:47 am * Is the patient Alert and Oriented? Yes * How many steps to enter\exit or inside your home? * PCP DR. DAILY * Pharmacy [address] * Preadmission Environment Home with Family * ADLs Independent * Equipment CPAP Glucometer * Other Equipment [facility], MEDICAL EQUIPMENT PROVIDER PREFERENCE * List name and contact numbers for known caregivers / representatives who currently or will assist patient after discharge: LEORA QUEEN, SPOUSE, * Verbal permission to speak to the caregivers and representatives has been obtained from the patient. N/A * Community resources currently utilized None * Please name any agencies selected above. NONE * Additional services required to return to the preadmission environment? No * Can the patient safely return to the preadmission environment? Yes * Has this patient been hospitalized within the prior 30 days at any hospital? No Last DP export: 02/07/19 8:56 a Patient Name: HUMBLE QUEEN Page 16044 at 0828 All edits/amendments must be made on the electronic document DICTATION DATE: 02/08/19826 APPRENTICE/LINEMAN: COLT 02/08/19826 RPT#: [id number] DC DATE:02/07/19 STATUS: DIS IN [facility] [address] [place] [address] END OF REPORT
--- NOTE | 2019-02-11 10:06 | HP ---
PATIENT: HUMBLE QUEEN MEDICAL RECORD: [id number] ACCOUNT: [id number] LOCATION:[address] : 44 ADMISSION DATE: 02/05/19 PCP: ALBERTINA DAILY HISTORY AND PHYSICAL EXAMINATION UPDATE HISTORY AND PHYSICAL HISTORY: A 78-year-old gentleman with history of sick sinus syndrome, status post pacemaker placement, began having angina over the past couple of months. Underwent Cardiolite stress testing which showed reversible ischemia along the anterior wall. He was also however noted to be anemic. He is being admitted for anemia workup before proceeding with diagnostic angiography. PAST MEDICAL HISTORY: Includes; 1. History of hypertension. 2. Hyperlipidemia. 3. Diabetes mellitus. 4. Sick sinus syndrome, status post pacemaker placement. 5. On Coumadin for CVA prophylaxis. ALLERGIES: None known. SOCIAL HISTORY: . Nonsmoker and nondrinker. He takes care of all his ADLs. REVIEW OF SYSTEMS: The patient reports easy bruising but reports no swollen glands. The patient reports no fever, no night sweats, no significant weight gain, no significant weight loss. No significant exercise tolerance. The patient reports no dry eyes, no irritation, no vision change. Patient reports no difficulty hearing and no ear pain. Patient reports no frequent nose bleeds or nose and sinus problems. Patient reports on arm pain on exertion. No shortness of breath while lying down. No history of heart murmur. Patient reports no cough, no wheezing or coughing up blood. Patient reports no abdominal pain, no vomiting. Normal appetite. No diarrhea and not vomiting blood. No nausea and no constipation. Patient reports no incontinence. No difficulty urinating. No hematuria. No increased frequency. Patient reports no muscle aches. No weakness, no arthralgias, no back pain. No swelling of the extremities. Patient reports no abnormal mole, no jaundice, no rashes. Reports no loss of consciousness. No weakness and no numbness. No seizures, dizziness, or headaches. The patient reports no depression, no sleep disturbance, feeling safe in a relationship and no alcohol abuse. Patient reports on fatigue. Reports no runny nose or sinus pressure. No itching, no hives, and no frequent sneezing. PHYSICAL EXAMINATION: GENERAL: Pleasant gentleman. VITAL SIGNS: Pulse 96 and irregular. Blood pressure 112/72. HEENT: Normocephalic and atraumatic. HEART: Tachycardic and irregular. III/ systolic ejection murmur. LUNGS: Good air excursion. ABDOMEN: Soft and nontender. EXTREMITIES: Show 1+ edema and 1+ pulses. NEUROLOGIC: Grossly intact. IMPRESSION: Anemia with indices, suspect iron deficiency versus GI blood loss. HISTORY AND PHYSICAL [id number] HUMBLE QUEEN He has been consulted for endoscopy. We will proceed with angiography after cleared by GI. TRANSINT:[id number] Voice Confirmation ID: [id number] DOCUMENT ID: [id number] MILO LOPEZ MD at 1006 CC: [id number] DICTATION DATE: 02/06/19 1608 MEDICAL SERVICE REPRESENTATIVE: 02/06/19 1811 DIS IN 02/07/19 [facility] [address] [place] [address]
--- NOTE | 2019-02-11 10:06 | OP ---
PATIENT NAME: HUMBLE QUEEN MEDICAL RECORD: [id number] :44 LOCATION:D.M2 D.2112 ADMISSION DATE:02/05/19 SURGEON: MILO LOPEZ MD DATE OF OPERATION: 02/06/2019 PROCEDURE: Left heart catheterization, selective coronary angiography, right femoral artery approach. CATHETERS: A 5-Taiwanese sheath, 5/4 left and right Jason, 5/4 pig. The procedure was well tolerated. The patient was returned to the silva. Sheath was removed. ExoSeal device was placed. FINDINGS: Left ventriculography in 30-degree MCKINNEY view: Normal wall motion. Normal systolic function. EF greater than or equal to 50%. CORONARY ANATOMY: LEFT MAIN: Left main is free of disease. LAD: LAD at the takeoff of the second diagonal shows a tight 80% stenosis, correlating nicely with nuclear study. CIRCUMFLEX: Free of disease. RIGHT CORONARY ARTERY: Large artery, free of disease. IMPRESSION AND PLAN: Intervention to LAD momentarily. DESCRIPTION OF PROCEDURE: A 5-Taiwanese sheath was exchanged for a 6-Taiwanese sheath. XB LAD guiding catheter provided good guide catheter support followed by 300 cm Whisper wire placed across the tightly occluded LAD down this portion of the vessel with 80% stenosis. Stent deployed was 3.5 x 12 mm Cobra stent up to 14 atmospheres. There was excellent resolution of an 80% stenosis; however, there was snowplowing into the diagonal itself. Therefore, a new Whisper wire and 2.5 balloon were placed into the diagonal snowplowing of 80%. This was inflated up to 8 atmospheres for 30 seconds with excellent resolution of the snowplow to less than 20% residual. DARIEN flow was 3 throughout the procedure. Heparin and Integrilin were used during the case. Plavix was loaded in the lab. Sheath was closed with ExoSeal device. TRANSINT:[id number] Voice Confirmation ID: [id number] DOCUMENT ID: [id number] MILO LOPEZ MD at 1006 CC: [id number] DICTATION DATE: 02/06/19 1604 TELEVISION PRESENTER: 02/06/19 1853 DIS IN 02/07/19 [facility] [id number] [place] [address]
--- NOTE | 2019-02-11 10:07 | DS ---
PATIENT:HUMBLE QUEEN :44 MEDICAL RECORD: [id number] DISCHARGE SUMMARY ADMISSION DATE: 02/05/19 DISCHARGE DATE: 02/07/19 DIAGNOSES: 1. Coronary artery disease, status post intervention this admission. 2. Cardiomyopathy, improved on therapy. 3. Hypertension. 4. Hyperlipidemia. 5. Severe anemia, microcytic. No evidence of upper GI bleed via endoscopy. HOSPITAL COURSE: The patient admitted for angiography. He was found to be quite anemic, was transfused. Underwent EGD via GI, was found to have no active bleeding. Underwent angiography with intervention of the LAD. Actually, he was markedly improved after intervention and transfusion. Discharged home in good condition. He will be on Plavix and aspirin for 30 days. Did receive Cobra stent so did load with Plavix. He will not restart his warfarin in the interim until after 30 days of Plavix. We will see him back in the office for a scheduled appointment. ACTIVITY: As tolerated. We will set for a cardiac rehab. DIET: ADA diet. TRANSINT:[id number] Voice Confirmation ID: [id number] DOCUMENT ID: [id number] MILO LOPEZ MD at 1007 CC: [id number] DICTATION DATE: 02/07/19806 GROCERY STORE CLERK: 02/07/192124 DIS IN 02/07/19 [facility] [address] [place] [address]
== END 2019-02-07 17:33 | disposition home or self-care (01) | DRG 981 ==
LOC: D.CATH 11:13 → D.M2 12:50 → D.CATH 14:00 → D.M2 02-05 08:15
PROVIDERS: Family Medicine; Internal Medicine Gastroenterology; Internal Medicine Interventional Cardiology; ADMIT Family Medicine; ATTEND Family Medicine
PROC: 0DJ08ZZ Inspection of Upper Intestinal Tract, Via Natural or Artificial Opening Endoscopic (ICD-10-PCS; principal; 2019-02-05 07:00)
PROC: 02703ZZ Dilation of Coronary Artery, One Artery, Percutaneous Approach (ICD-10-PCS; 2019-02-06)
PROC: 4A023N7 Measurement of Cardiac Sampling and Pressure, Left Heart, Percutaneous Approach (ICD-10-PCS; 2019-02-06)
PROC: B2111ZZ Fluoroscopy of Multiple Coronary Arteries using Low Osmolar Contrast (ICD-10-PCS; 2019-02-06)
PROC: B2151ZZ Fluoroscopy of Left Heart using Low Osmolar Contrast (ICD-10-PCS; 2019-02-06)
PROC: 02703DZ Dilation of Coronary Artery, One Artery with Intraluminal Device, Percutaneous Approach (ICD-10-PCS; 2019-02-06 14:45)
DX: D50.9 Iron deficiency anemia, unspecified (principal); I50.23 Acute on chronic systolic (congestive) heart failure; I13.0 Hypertensive heart and chronic kidney disease with heart failure and stage 1 through stage 4 chronic kidney disease, or unspecified chronic kidney disease; Z86.73 Personal history of transient ischemic attack (TIA), and cerebral infarction without residual deficits; I25.10 Atherosclerotic heart disease of native coronary artery without angina pectoris; E11.22 Type 2 diabetes mellitus with diabetic chronic kidney disease; N18.9 Chronic kidney disease, unspecified; K21.0 Gastro-esophageal reflux disease with esophagitis; K26.9 Duodenal ulcer, unspecified as acute or chronic, without hemorrhage or perforation; I48.2 Chronic atrial fibrillation; Z95.0 Presence of cardiac pacemaker

== ENCOUNTER 2019-03-19 08:50 | Outpatient (CLI) | payer MEDICARE, BC ==
[~2019-03-19] VITALS: Ht 188 cm; Wt 168.2 kg
[~2019-03-19 08:50] MED LIST changes: +PLAVIX75 MG PO
[2019-03-19 10:38] VITALS: BP 167/62; Ht 188 cm; Wt 168.2 kg
== END 2019-03-19 17:30 | disposition home or self-care (01) ==
LOC: D.OPS 08:50
PROVIDERS: ATTEND Family Medicine
DX: D64.9 Anemia, unspecified (principal)

== ENCOUNTER 2019-04-01 16:18 | Inpatient (IN) | payer MEDICARE, BC ==
[~2019-04-01] VITALS: Ht 188 cm; Wt 163.3 kg
[2019-04-01 17:11] VITALS: BP 135/48
[2019-04-01 17:13] LABS: BASOPHILS 0.4 % (0-2); EOSINOPHILS 5.5 % (0-7); HEMATOCRIT 26.4 % (42.0-54.0); IMMATURE GRANULOCYTES 0.6 % (0-5); LYMPHOCYTES 8.2 % (15-50); MCH 22.7 pg (26.0-34.0); MCHC 30.3 g/dL (31.0-37.0); MCV 74.8 fL (80.0-100.0); MEAN PLATELET VOLUME 8.7 fL (7.4-10.4); MONOCYTES 10.6 % (2-11); NEUTROPHILS 74.7 % (40-80); PLATELET COUNT 259 10x3/uL (130-400); RBC 3.53 10x6/uL (4.20-6.10); RDW 21.8 % (11.5-14.5); WBC 7.1 10x3/uL (4.8-10.8)
[2019-04-01 17:24] LABS: INR 1.3 (0.85-1.17); PROTIME 15.7 SECONDS (11.6-15.0)
[2019-04-01 17:25] LABS: APTT 37.6 SECONDS (22.8-39.4)
--- NOTE | 2019-04-01 17:30 | NUR ---
PT APPEARS TO BE RESTING, RESPIRATIONS EVEN AT 18/MIN. SPO2 96% 2L/MIN. COLOR WNL FOR RACE. PT DENIES FURTHER NEEDS AT THIS TIME. WILL CONTINUE TO MONITOR.
[2019-04-01 17:31] VITALS: BP 136/43
[2019-04-01 18:04] LABS: ALBUMIN 3.4 g/dL (3.4-5.0); ALKALINE PHOSPHATASE 108 U/L (46-116); ALT (SGPT) 24 U/L (10-68); CALC OSMOLALITY 278 mosm/kg (275-300); CALCIUM 8.2 mg/dL (8.5-10.1); CHLORIDE - SERUM 100 mmol/L (98-107); CREATININE - SERUM 1.6 mg/dL (0.6-1.3); POTASSIUM - SERUM 3.8 mmol/L (3.5-5.1); PROTEIN - SERUM 6.8 g/dL (6.4-8.2); SODIUM 134 mmol/L (136-145); UREA NITROGEN 33 mg/dL (7-18); eGFR NON AFRICAN AMERICAN 45 mL/min (90-120)
[2019-04-01 18:11] LABS: GLUCOSE 175 mg/dL (74-106)
[2019-04-01 18:17] LABS: CKMB 0.4 U/L (0.0-3.6); CREATINE KINASE 20 UL (21-232); MAGNESIUM - SERUM 2.1 mg/dL (1.8-2.4)
[2019-04-01 18:18] LABS: TROPONIN-I < 0.017 ng/mL (0.000-0.060)
[2019-04-01 18:40] VITALS: BP 167/60
--- NOTE | 2019-04-01 19:08 | NUR ---
HAND-OFF GIVEN TO CHRISTINE WILKS.
--- NOTE | 2019-04-01 19:31 | NUR ---
VOIDS 800ML PER URINAL.
--- NOTE | 2019-04-01 21:30 | NUR ---
PATIENT TO THE FLOOR VIA BED. PATIENT REQUESTED A DIFFERENT BED IN HIS ROOM. PATIENT STATES BROWN BED HURT HIS BACK. PUT A NEW WHITE BED IN HIS ROOM. GOT HIM SETTLED. CALL LIGHT WITHIN REACH AND BED IN LOWEST POSITION.
[2019-04-02] VITALS: BP 124/52
[2019-04-02 04:00] VITALS: BP 132/56
[2019-04-02 06:18] LABS: ALBUMIN 3.2 g/dL (3.4-5.0); ANION GAP 11.3 mmol/L (8-16); BILIRUBIN - TOTAL 0.68 mg/dL (0.2-1.3); CALCIUM 8.6 mg/dL (8.5-10.1); CARBON DIOXIDE 26.5 mmol/L (21.0-32.0); CREATININE - SERUM 1.6 mg/dL (0.6-1.3); POTASSIUM - SERUM 3.8 mmol/L (3.5-5.1); PROTEIN - SERUM 6.3 g/dL (6.4-8.2); TROPONIN-I 0.017 ng/mL (0.000-0.060)
[2019-04-02 06:28] LABS: BASOPHILS 0.9 % (0-2); EOSINOPHILS 8.2 % (0-7); HEMATOCRIT 25.4 % (42.0-54.0); HEMOGLOBIN 7.7 g/dL (13.5-17.5); IMMATURE GRANULOCYTES 0.5 % (0-5); LYMPHOCYTES 7.9 % (15-50); MCH 22.6 pg (26.0-34.0); MCHC 30.3 g/dL (31.0-37.0); MCV 74.7 fL (80.0-100.0); MEAN PLATELET VOLUME 8.5 fL (7.4-10.4); MONOCYTES 14.3 % (2-11); NEUTROPHILS 68.2 % (40-80); PLATELET COUNT 265 10x3/uL (130-400); RDW 21.9 % (11.5-14.5); WBC 5.5 10x3/uL (4.8-10.8)
--- NOTE | 2019-04-02 08:04 | NUR ---
RECIEVED REPORT FROM NIGHT NURSE. PT IS SLEEPING.
[2019-04-02 08:55] VITALS: BP 168/59
[2019-04-02 10:51] VITALS: BMI 46.2
--- NOTE | 2019-04-02 11:39 | NUR ---
UNIT OF BLOOD STARTED. ANTHONY WELL.
[2019-04-02 12:35] VITALS: BP 133/49
[2019-04-02 13:23] VITALS: Ht 188 cm; Wt 163.3 kg
[2019-04-02 15:11] VITALS: BP 141/54
--- NOTE | 2019-04-02 15:14 | NUR ---
2ND UNIT OF BLOOD STARTED. PT TOLE WELL
--- NOTE | 2019-04-02 15:58 | NUR ---
PT SLEEPING WITH HOME CPAP. BLODD INFUSING WELL.
--- NOTE | 2019-04-02 17:15 | NUR ---
UNIT OF BLOOD FINISHED. HE HAS HAD 2 UNITS. PT ANTHONY INFUSION WELL.
--- NOTE | 2019-04-02 19:24 | NUR ---
BEDSIDE REPORT RECEIVED, PT IS AAO, 250 ML OF URINE EMPTIED FROM URINAL. PT AT BED SIDE. REQUESTED ITEMS FOR A BATH. PT RECEIVED. NAME AND DATE PLACED ON BOARD. WILL CPOC
[2019-04-02 20:00] VITALS: BP 139/58
--- NOTE | 2019-04-02 20:19 | NUR ---
PT FSBS IS 205 40 UNITS OF LANTUS AND 12 UNITS OF REGULAR INSULIN. SNACK OFFERED. PT LASIX GIVEN. VERBALIZED UNDERSTANDING. WILL CALL FOR ASSIST. CPOC
[2019-04-03] VITALS (7 sets, daily range): BP systolic 123–152; BP diastolic 53–81
--- NOTE | 2019-04-03 01:00 | NUR ---
PT RESTING IN BED. NO S/S OF DISTRESS. CPAP ON, URINAL EMPTIED. PT DENIES ANY NEEDS. CALL LIGHT IN REACH.WILL CPOC
[2019-04-03 05:09] LABS: BASOPHILS 0.7 % (0-2); EOSINOPHILS 9.9 % (0-7); HEMATOCRIT 28.2 % (42.0-54.0); HEMOGLOBIN 8.6 g/dL (13.5-17.5); IMMATURE GRANULOCYTES 0.4 % (0-5); LYMPHOCYTES 7.4 % (15-50); MCH 23.1 pg (26.0-34.0); MCHC 30.5 g/dL (31.0-37.0); MCV 75.6 fL (80.0-100.0); MEAN PLATELET VOLUME 8.4 fL (7.4-10.4); MONOCYTES 13.2 % (2-11); NEUTROPHILS 68.4 % (40-80); PLATELET COUNT 259 10x3/uL (130-400); RBC 3.73 10x6/uL (4.20-6.10); RDW 21.4 % (11.5-14.5); WBC 5.7 10x3/uL (4.8-10.8)
[2019-04-03 05:27] LABS: ANION GAP 13.9 mmol/L (8-16); CALCIUM 8.4 mg/dL (8.5-10.1); CARBON DIOXIDE 26.8 mmol/L (21.0-32.0); CREATININE - SERUM 1.4 mg/dL (0.6-1.3); POTASSIUM - SERUM 3.7 mmol/L (3.5-5.1)
--- NOTE | 2019-04-03 05:51 | NUR ---
PT GLUCOSE 144 NO INSULIN NEEDED PER SLIDING SCALE
--- NOTE | 2019-04-03 08:00 | NUR ---
REPORT RECEIVED. WILL CONTINUE WITH POC. PT CURRENTLY SITTING ON EDGE OF BED. CALL LIGHT W/I REACH. PT IS AAO AND UP AD BELINDA. RR EVEN AND UNLABORED ON RA. R.HAND PIV IS SALINE LOCKED. NO S/S OF DISTRESS NOTED. PT DENIES ANY NEEDS AT THIS TIME. WILL CTM.
--- NOTE | 2019-04-03 15:17 | NUR ---
I have reviewed this patient and I concur with the Shift Assessment completed by the Licensed Practical Nurse today this shift.
--- NOTE | 2019-04-03 16:15 | NUR ---
PT SITTING ON EDGE OF BED. CALL LIGHT W/I REACH. RR EVEN AND UNLABORED ON RA. NO S/S OF DISTRESS NOTED. PT DENIES ANY NEEDS. WILL CTM.
--- NOTE | 2019-04-03 18:39 | NUR ---
PT SEMI FOWLERS. RR UNLABORED AND EVEN. PIV SLOCKED. CALL LIGHT WITHIN REACH. PT DENIES ANY NEEDS AT THIS TIME. WILL CONT WITH POC.
--- NOTE | 2019-04-03 19:37 | NUR ---
PT RESTING IN BED. PT ASKING FOR A SNACK. CHECKED FSBS FSBS IS 218 LANTUS GIVEN ORDERED 40 UNITS HUMILIN GIVEN ORDERED 12 UNITS. PT UP TO RESTROOM. NO ASSIST NEEDED GAIT STEADY. EDEMA +3/+4 NOTED IN LOWER EXTREMITIES. PT HAS NO S/S OF DISTRESS. WILL CPOC
--- NOTE | 2019-04-03 21:20 | NUR ---
PT RESTING WITH NO S/S DISTRESS, RESPIRATIONS EVEN AND UNLABORED, CPAP MACHINE IN USE, EASILY AROUSED BY VOICE. ALERT AND ORIENTED X4. NIGHT TIME MEDS ADMINISTERED PER ORDER. DENIES PAIN OR ANY NEEDS AT THIS TIME. BED IN LOWEST POSITION, SR X2, CALL LIGHT AND PHONE WITHIN REACH. WILL CONTINUE WITH POC.
--- NOTE | 2019-04-03 22:54 | NUR ---
PT LAYING IN BED. CPAP ON. PT HAS NO S/S OF DISTRESS. BED LOW AND CALL LIGHT IN REACH. NOURISHMENT IN REACH. WILL CPOC
--- NOTE | 2019-04-04 03:32 | NUR ---
PT ASLEEP. BPAP ON. NO S/S OF DISTRESS. WILL CPOC
[2019-04-04 04:00] VITALS: BP 134/44
--- NOTE | 2019-04-04 06:31 | NUR ---
MORNING MEDICATIONS GIVEN. FSBS IS 184 8 UNITS GIVEN ORDERED. PT DECLINED A SNACK. PT SITTING ON SIDE OF BED DRINKING ICE WATER. NO S/S OF DISTRESS. WILL CPOC
--- NOTE | 2019-04-04 06:34 | NUR ---
LASIX NOT GIVEN. PT LEFT HAND IV NO LONGER PATENT. IV HANGING BY TAPE. CATH NOT IN VEIN. CATH INTACT. PT STATES SHOULD BE LEAVING TODAY. WANTS NURSE TO ASK ABOUT PO LASIX
[2019-04-04 06:40] LABS: BASOPHILS 0.5 % (0-2); EOSINOPHILS 9.4 % (0-7); HEMATOCRIT 29.2 % (42.0-54.0); HEMOGLOBIN 9.1 g/dL (13.5-17.5); IMMATURE GRANULOCYTES 0.5 % (0-5); LYMPHOCYTES 8.1 % (15-50); MCH 23.5 pg (26.0-34.0); MCHC 31.2 g/dL (31.0-37.0); MCV 75.3 fL (80.0-100.0); MEAN PLATELET VOLUME 8.4 fL (7.4-10.4); MONOCYTES 14.7 % (2-11); NEUTROPHILS 66.8 % (40-80); PLATELET COUNT 264 10x3/uL (130-400); RBC 3.88 10x6/uL (4.20-6.10); RDW 21.5 % (11.5-14.5); WBC 6.3 10x3/uL (4.8-10.8)
[2019-04-04 06:54] LABS: ANION GAP 12.6 mmol/L (8-16); CALCIUM 8.6 mg/dL (8.5-10.1); CARBON DIOXIDE 28.4 mmol/L (21.0-32.0); CREATININE - SERUM 1.4 mg/dL (0.6-1.3)
--- NOTE | 2019-04-04 07:42 | NUR ---
DURING BEDSIDE SHIFT REPORT PT IS ASLEEP. PTS OWN CPAP BEING USED. WILL CONTINUE TO MONITOR.
[2019-04-04 08:03] VITALS: BP 142/56
[2019-04-04 12:06] VITALS: BP 136/61
[2019-04-04] MEDS ORDERED: ASPIRIN81 MG PO (12:41)
--- NOTE | 2019-04-04 14:24 | MORECARE ---
CASE MANAGEMENT DISCHARGE SUMMARY PATIENT: HUMBLE QUEEN UNIT: [id number] ADM DATE: 04/01/19 AGE: 78 : 42 SEX: M ROOM/BED: D.2123 AUTHOR: GRACE MCDONALD PHYSICIAN: REFERRING PHYSICIAN: ALBERTINA DAILY MD DATE OF SERVICE: 04/04/19 Discharge Plan Patient Name: HUMBLE QUEEN Facility: [facility]:[place] : 1940 Planned Disposition: Home Anticipated Discharge Date: 04/04/19 Discharge Date: Expected LOS: 3 Initial Reviewer: [email or web address] Initial Review Date: 04/04/2019 Generated: 04/04/19 3:24 pm DCPIA - Discharge Planning Initial Assessment Updated by [email or web address]: Ludwig Womack on 04/04/19 2:23 pm * Is the patient Alert and Oriented? Yes * How many steps to enter\exit or inside your home? NONE * PCP DR. DAILY * Pharmacy [address] * Preadmission Environment Home with Family * ADLs Independent * Equipment CPAP Glucometer * Other Equipment [facility] - MEDICAL EQUIPMENT PROVIDER PREFERENCE * List name and contact numbers for known caregivers / representatives who currently or will assist patient after discharge: LEORA QUEEN, SPOUSE, * Verbal permission to speak to the caregivers and representatives has been obtained from the patient. N/A * Community resources currently utilized None * Please name any agencies selected above. NONE * Additional services required to return to the preadmission environment? No * Can the patient safely return to the preadmission environment? Yes * Has this patient been hospitalized within the prior 30 days at any hospital? Yes External Providers External Provider: [facility] Next Contact Date: 04/04/2019 Service Request Date: Service Type: Resolution: Reviewer: Comments: Patient Name: HUMBLE QUEEN Page 06015 at 1424 All edits/amendments must be made on the electronic document DICTATION DATE: 04/04/19 1424 SUPERVISOR CUTTING AND BONING: COLT 04/04/19 1424 RPT#: [id number] DC DATE: STATUS: ADM IN [facility] [address] [place] [address] END OF REPORT
--- NOTE | 2019-04-04 14:35 | MORECARE ---
CASE MANAGEMENT DISCHARGE SUMMARY PATIENT: HUMBLE QUEEN UNIT: [id number] ADM DATE: 04/01/19 AGE: 78 : 42 SEX: M ROOM/BED: D.3174 AUTHOR: HARRY,DOC PHYSICIAN: REFERRING PHYSICIAN: ALBERTINA DAILY MD DATE OF SERVICE: 04/04/19 Discharge Plan Patient Name: HUMBLE QUEEN Facility: [facility]:[place] : 1940 Planned Disposition: Home Anticipated Discharge Date: 04/04/19 Discharge Date: Expected LOS: 3 Initial Reviewer: [email or web address] Initial Review Date: 04/04/2019 Generated: 04/04/19 3:34 pm Comments DCP- Discharge Planning Updated by [id number]: Ludwig Womack on 04/04/19 1:[address] Patient Name: HUMBLE QUEEN Admission Status: ER Accout number: [id number] Admission Date: 04-01-2019 : 1940 Admission Diagnosis:ANEMIA, UNSPECIFIED Attending: ALBERTINA DAILY Current LOS: 3 Anticipated DC Date: 04-04-2019 Planned Disposition: Home Primary Insurance: MEDICARE A & B Discharge Planning Comments: CM MET WITH PT IN ROOM TO DISCUSS DISCHARGE PLANNING AND NEEDS. PT REPORTS LIVING AT HOME INDEPENDENTLY WITH HIS PT HAS CPAP AND GLUCOMETER FROM [facility]. PT HAS NO OUTSIDE SERVICES ASSISTING IN THE HOME. CM DISCUSSED AVAILABILITY OF HOME HEALTH, REHAB SERVICES AND MEDICAL EQUIPMENT. PT REPORTS NEEDING A WHEELCHAIR HE IS HAVING TROUBLE WITH WEAKNESS AND SHORTNESS OF BREATH WALKING MORE THAN SHORT DISTANCES. PT DENIES FURTHER DISCHARGE NEEDS, REPORTS HIS WILL PICK HIM UP FOR DISCHARGE HOME. IMPORTANT MESSAGE FROM MEDICARE PROVIDED AND EXPLAINED. CM RECEIVED ORDER FOR WHEELCHAIR, SPOKE TO PT IN ROOM WHO SIGNED CONSENT FOR [facility] AND ASKED FOR HOME DELIVERY OF THE WHEELCHAIR FOR TOMORROW. CM FAXED REFERRAL FOR WHEELCHAIR TO [facility] AT [phone]. CM CALLED [facility], , SPOKE TO KOBE WHO INFORMED CM THAT THE DOCTOR WILL HAVE TO SIGN LETTER OF MEDICAL NECESSITY, CM ADVISED TO FAX TO DR. DAILY'S OFFICE FOR SIGNAURE AND RELAYED THAT PT WANTS HOME DELIVERY FOR TOMORROW. SUPERVISORY TRAINING SPECIALIST NURSE NOTIFIED. Instructor Hairspring: Ludwig Womack DCPIA - Discharge Planning Initial Assessment Updated by LAVELL: Ludwig Womack on 04/04/19 2:23 pm * Is the patient Alert and Oriented? Yes * How many steps to enter\exit or inside your home? NONE * PCP DR. DAILY * Pharmacy [address] * Preadmission Environment Home with Family * ADLs Independent * Equipment CPAP Glucometer * Other Equipment [facility] - MEDICAL EQUIPMENT PROVIDER PREFERENCE * List name and contact numbers for known caregivers / representatives who currently or will assist patient after discharge: LEORA QUEEN, SPOUSE, * Verbal permission to speak to the caregivers and representatives has been obtained from the patient. N/A * Community resources currently utilized None * Please name any agencies selected above. NONE * Additional services required to return to the preadmission environment? No * Can the patient safely return to the preadmission environment? Yes * Has this patient been hospitalized within the prior 30 days at any hospital? Yes Coverage Notice Reviewer: [id number] Womack Notice Issued Date-Time: 04/04/2019 9:30 Notice Type: IM Discharge Notice Notice Delivered To: Patient Relationship to Patient: Installer Inspector Final Name: Delivery Method: HAND - Hand Delivered Nevaeh Days: Prior Verbal Notification: Recipient Understood Notice: Yes Recipient Signature: Yes Med Rec Note Co-signed by Attending: Coverage Notice Comment: Reviewer: LAVELL Womack Notice Issued Date-Time: 04/04/2019 9:30 Notice Type: Patient Choice Letter Notice Delivered To: Patient Relationship to Patient: Installer Inspector Final Name: Delivery Method: HAND - Hand Delivered Nevaeh Days: Prior Verbal Notification: Recipient Understood Notice: Yes Recipient Signature: Yes Med Rec Note Co-signed by Attending: Coverage Notice Comment: [facility] Last DP export: 04/04/19 1:24 p Patient Name: MJ QUEENEL Page 92444 at 1435 All edits/amendments must be made on the electronic document DICTATION DATE: 04/04/191433 AMPOULE WASHING MACHINE OPERATOR: COLT 04/04/19 1434 RPT#: [id number] [place] DATE: STATUS: ADM IN [facility] [address] [place] [address] END OF REPORT
--- NOTE | 2019-04-04 15:50 | NUR ---
DISCHARGE INSTRUCTIONS GIVEN. BOTH AND PT UNDERSTAND. PT HAD NO IV. TO CAR VIA WC.
--- NOTE | 2019-04-08 18:38 | EC ---
PATIENT:HUMBLE QUEEN DATE OF SERVICE: 04/01/19 SEX: M MEDICAL RECORD: [id number] DATE OF : 44 LOCATION:D.M2 D.212 AGE OF PATIENT: 78 ADMISSION DATE: 04/01/19 REFERRING PHYSICIAN: INTERPRETING PHYSICIAN: FRANCISCA DEAN MD ECHOCARDIOGRAM REPORT ECHO CHARGES 4 ECHO COMPLETE Date: 04/02/19 CLINICAL DIAGNOSIS: CHF ECHOCARDIOGRAPHIC MEASUREMENTS (adult normal given) AC root (d.<3.7cm) 1.9 cm LV Septum d (<1.2 cm> 1.2 cm Valve Excursion 1.6 cm LV Septum (systole) 1.6 cm Left Atria (s.<4.0cm> 5.5 cm LVPW d(<1.2cm) 1.2 cm RV (d.<2.3cm) 4.1 cm LVPW (sytole) 1.4 cm LV diastole(<5.6CM) 6.7 cm MV E-F(>70mm/sec) cm LV systole 5.4 cm LVOT Diameter 1.8 cm MV exc.(>10mm) cm Est.ejection fraction (50-75%) % DOPPLER: LVIT cm/sec A 27.0 cm/sec E 85.0 cm/sec LA cm/sec RVSP 23.4 mmHg LVOT 137 cm/sec AOP1/2T m/s Asc. Ao 187 cm/sec RVOT 84 cm/sec RA cm/sec PA 80 cm/sec AV Gradient Peak 14.0 mmHg AV Mean 8.1 mmHg AV Area 1.9 cm MV Gradient Peak 9.2 mmHg MV Mean 3.1 mmHg MV Area cm COMMENTS: Manager Image: Eladio MCKENZIE Veneer Clipper Helper: 1 Dr. Dean TAPE# PACS Pericardial Effusion N DATE OF SERVICE: 04/02/2019 PROCEDURE: Echocardiogram. FINDINGS: 1. Left ventricular chamber size is mildly dilated. Left ventricular systolic function is mildly reduced, overall ejection fraction 45%. 2. Left atrium is enlarged at 5.5 cm. Right atrium and right ventricular chamber sizes are as well moderately dilated. 3. Valvular structures have normal structure and motion. ECHOCARDIOGRAM REPORT [id number] HUMBLE QUEEN 4. Doppler interrogation reveals mild mitral regurgitation, mild tricuspid regurgitation, no other valvular insufficiency or stenosis. Pulmonary systolic pressure is estimated at 23 mmHg. 5. No evidence of pericardial effusion or left ventricular thrombus. TRANSINT:[id number] Voice Confirmation ID: [id number] DOCUMENT ID: [id number] FRANCISCA DEAN MD at 1838 CC: [id number] DICTATION DATE: 04/02/19 1600 WARP WORKER: 04/02/19 1615 DIS IN 04/04/19 [place] [id number] [place] [id number]
--- NOTE | 2019-04-08 18:38 | CN ---
PATIENT NAME:HUMBLE QUEEN MEDICAL RECORD: [id number] : 44 LOCATION:D. D.2123 ADMIT DATE: 04/01/19 ACCOUNT: [id number] CONSULTING PHYSICIAN: FRANCISCA VAZQUEZ MD REFERRING PHYSICIAN: ALBERTINA DAILY MD DATE OF CONSULTATION: 04/02/2019 CARDIOLOGY CONSULTATION DATE OF SERVICE: 04/02/2019 DIAGNOSES: 1. Angina. 2. Shortness of breath, dyspnea on exertion. 3. Coronary artery disease. 4. Previous percutaneous transluminal coronary angioplasty stent. 5. Anemia. 6. Gastrointestinal bleed. 7. Insulin-dependent diabetes. 8. Obesity. HISTORY OF PRESENT ILLNESS: This is a gentleman known to us with a past history of coronary artery disease, PTCA stent of his LAD with a Cobra stent in January. He has a problem with anemia. He was just at [facility] in [place]. I did an upper GI and lower GI, did cauterization of stomach as well as colon. He got 4 units of blood transfusion when he was there. He now has become short of breath with chest discomfort with any exertion. His hemoglobin is now 7.7. PHYSICAL EXAMINATION: GENERAL APPEARANCE: Well-nourished, well-developed, appears stated age. Level of distress, comfortable. PSYCHIATRIC: Mental status, alert, normal affect. Orientation, oriented to time, place and person. EYES: Lids and conjunctiva, noninjected. No discharge, no pallor. ENT: Lips, teeth, gums, normal dentition. Oropharynx, no cyanosis, no pallor. NECK: Carotid arteries, bilateral normal upstroke, no bruits, no thrills. JUGULAR VEINS: No jugular venous pressure or distention. CERVICAL LYMPH NODES: Nontender, nonenlarged. THYROID: Not enlarged. Nontender. No nodules. LUNGS: Respiratory effort, unlabored. CHEST: Normal curvature. No thoracic deformity. No chest wall tenderness. Percussion, resonant. Auscultation, clear. No wheezes, no rales, no rhonchi. CARDIOVASCULAR: Precordial exam, nondisplaced. No heaves or pericardial thrills. Rate and rhythm, regular. Heart sounds, normal S1, normal S2. No S3, no gallop, no rub. Systolic murmur, not heard. Diastolic murmur, not heard. EXTREMITIES: No cyanosis, no edema. Peripheral pulses, full and equal in all extremities, except as noted. No bruits appreciated. ABDOMEN: Soft, nondistended. Normal aorta. No bruit. Nontender. No masses. Liver, nontender, no hepatomegaly. Spleen, nontender, no splenomegaly. MUSCULOSKELETAL: No joint tenderness. No joint swelling. No erythema. NEUROLOGICAL: Normal gait, normal strength, normal tone. SKIN: Warm and dry. His EKG is with no changes. Troponin is normal. CONSULT REPORT [id number] HUMBLE QUEEN ASSESSMENT AND PLAN: At this time, his angina has demand ischemia from the anemia. With review of the cardiac catheterization film, he has significant disease of the left anterior descending diagonal as well as the circumflex and ramus intermedius. This would be the etiology of the angina. It is paramount to replace his blood and resolve the anemia. He does not need Plavix at this point. They restarted his Plavix at [place], but with a Cobra stent. He does not need any further Plavix. This will help with the anemia as well and the chronic gastrointestinal bleeding. TRANSINT:[id number] Voice Confirmation ID: [id number] DOCUMENT ID: [id number] FRANCISCA VAZQUEZ MD at 1838 CC: [id number] DICTATION DATE: 04/02/19 075 FIBER OPT[employer] CENTRAL OFFICE INSTALLER: 04/02/19 0826 DIS IN 04/04/19 [facility] [address] [place] [address]
== END 2019-04-04 16:17 | disposition home or self-care (01) | DRG 812 ==
LOC: D.ER 16:18 → D.M2 18:17
PROVIDERS: Family Medicine; ADMIT Family Medicine; ATTEND Family Medicine
DX: D62 Acute posthemorrhagic anemia (principal); I13.0 Hypertensive heart and chronic kidney disease with heart failure and stage 1 through stage 4 chronic kidney disease, or unspecified chronic kidney disease; Z68.42 Body mass index [BMI] 45.0-49.9, adult; I50.32 Chronic diastolic (congestive) heart failure; E11.22 Type 2 diabetes mellitus with diabetic chronic kidney disease; N18.9 Chronic kidney disease, unspecified; I48.91 Unspecified atrial fibrillation; Z86.73 Personal history of transient ischemic attack (TIA), and cerebral infarction without residual deficits; Z95.0 Presence of cardiac pacemaker; I25.119 Atherosclerotic heart disease of native coronary artery with unspecified angina pectoris; E66.9 Obesity, unspecified

== ENCOUNTER 2019-04-17 08:15 | Outpatient (CLI) | payer MEDICARE, BC ==
[~2019-04-17] VITALS: Ht 188 cm; Wt 163.6 kg
[~2019-04-17 08:15] MED LIST changes: +ASPIRIN81 MG PO
[2019-04-17 09:17] VITALS: BP 145/41; BMI 46.3
[2019-04-17 09:22] VITALS: BP 145/41; Ht 188 cm; Wt 163.6 kg
--- NOTE | 2019-04-17 09:45 | NUR ---
IV SITED TO RIGHT HAND WITH 20G CATHETER USING ASEPTIC TECHNIQUE. NS INFUSING AT KVO RATE VIA PUMP. WAITING FOR BLOOD TO GET READY FOR TANSFUSION OF TWO UNITS PRBCS.
== END 2019-04-17 13:57 | disposition home or self-care (01) ==
LOC: D.OPS 08:15
PROVIDERS: ATTEND Family Medicine
DX: D64.9 Anemia, unspecified (principal)

== ENCOUNTER 2019-05-02 08:37 | Outpatient (CLI) | payer MEDICARE, BC ==
[~2019-05-02] VITALS: Ht 188 cm; Wt 163.6 kg
[2019-05-02 11:07] VITALS: BP 131/50; Ht 188 cm; Wt 163.6 kg
== END 2019-05-02 16:10 | disposition home or self-care (01) ==
LOC: D.OPS 08:37
PROVIDERS: ATTEND Family Medicine
DX: D50.0 Iron deficiency anemia secondary to blood loss (chronic) (principal)

== ENCOUNTER 2019-07-22 09:58 | Inpatient (IN) | payer MEDICARE, BC ==
[~2019-07-22] VITALS: Ht 188 cm; Wt 159.1 kg
[2019-07-22 10:37] LABS: APTT 37.4 SECONDS (22.8-39.4); INR 1.28 (0.85-1.17); PROTIME 15.4 SECONDS (11.6-15.0)
[2019-07-22 11:01] LABS: BASOPHILS 0.4 % (0-2); EOSINOPHILS 4.9 % (0-7); HEMATOCRIT 23.3 % (42.0-54.0); IMMATURE GRANULOCYTES 0.2 % (0-5); LYMPHOCYTES 3.7 % (15-50); MCH 20.2 pg (26.0-34.0); MCHC 27.9 g/dL (31.0-37.0); MCV 72.6 fL (80.0-100.0); MEAN PLATELET VOLUME 8.5 fL (7.4-10.4); MONOCYTES 9.4 % (2-11); NEUTROPHILS 81.4 % (40-80); RBC 3.21 10x6/uL (4.20-6.10); RDW 20.4 % (11.5-14.5)
[2019-07-22 11:06] LABS: ALBUMIN 3.7 g/dL (3.4-5.0); ALKALINE PHOSPHATASE 120 U/L (46-116); ALT (SGPT) 20 U/L (10-68); BILIRUBIN - TOTAL 0.57 mg/dL (0.2-1.3); CALC OSMOLALITY 290 mosm/kg (275-300); CARBON DIOXIDE 26.8 mmol/L (21.0-32.0); CHLORIDE - SERUM 98 mmol/L (98-107); CKMB 0.9 U/L (0.0-3.6); CREATINE KINASE 15 UL (21-232); CREATININE - SERUM 1.6 mg/dL (0.6-1.3); GLUCOSE 305 mg/dL (74-106); HEMOGLOBIN 6.5 g/dL (13.5-17.5); MAGNESIUM - SERUM 2.2 mg/dL (1.8-2.4); PLATELET COUNT 354 10x3/uL (130-400); POTASSIUM - SERUM 4.4 mmol/L (3.5-5.1); PROTEIN - SERUM 7.4 g/dL (6.4-8.2); SODIUM 134 mmol/L (136-145); TROPONIN-I < 0.017 ng/mL (0.000-0.060); UREA NITROGEN 46 mg/dL (7-18); eGFR NON AFRICAN AMERICAN 45 mL/min (90-120)
[2019-07-22 11:27] VITALS: BP 153/58
[2019-07-22 12:00] VITALS: BP 116/66
[2019-07-22 13:02] VITALS: BP 116/66; Ht 188 cm; Wt 159.1 kg
--- NOTE | 2019-07-22 13:17 | NUR ---
RECIEVED FROM ER. DENIES ANY FUTHER CHEST PAIN. ALERT AND ORIENTED. CARDIZEM DRIP AT 10 INFUSING INTO RIGHT HAND. TELEMERTY SHOWS AFIB 78. WILL MONITOR
--- NOTE | 2019-07-22 13:30 | NUR ---
ALERT AND ORIENTED X4. SITTING UP IN BED. SPOUSE AT BEDSIDE. VERIFY WITH LAB ANTIBODY-E IS KNOWN BEFORE INITIATING UNIT 1 PRBC TRANSFUSION. BP-116/66, HR-107 UNCONTROLLED AFIB, T-97.6. RT HAND IV INFUSING CARDIZEM @ 10mL/HR. RT WRIST IV 20G SITED. INITIATE PRBC TRANSFUSION AT 75mL/HR. REMAIN IN ROOM FIRST 15 MINUTES TO MONITOR FOR REACTION.
--- NOTE | 2019-07-22 13:46 | NUR ---
ALERT AND ORIENTED X4. RESTING IN BED. NO ADVERSE OR ALLERGIC REACTIONS TO BLOOD. INCREASE TRANSFUSION TO 125ml/HR. BP-106/44, HR-100, T-98.4. DENIES ANY NEEDS AT THIS TIME. CONTINUE PLAN OF CARE AND SAFETY PRECAUTIONS.
--- NOTE | 2019-07-22 15:10 | NUR ---
PT RESTING WITH EYES CLOSED. IV INFUSING WELL. V/S STABLE. WILL MONITOR
[2019-07-22 17:22] LABS: CKMB 1.4 U/L (0.0-3.6); CREATINE KINASE 19 UL (21-232)
[2019-07-22 17:29] LABS: TROPONIN-I 0.145 ng/mL (0.000-0.060)
--- NOTE | 2019-07-22 19:26 | NUR ---
RECIEVED BEDSIDE SHIFT REPORT. ALERT AND ORIENTED X4. UP AD BELINDA TO B/R. LAYING IN BED WITH EYES OPEN AND TV ON. CPAP IN PLACE. IV X2 TO LEFT FA WITH CARDIZEM INFUSING AT 10CC/HR IN ONE AND BLOOD PRODUCT COMPLETED IN OTHER. WILL START SECOND PRBC. DENIES ANY NEEDS AT THIS TIME. WILL CONT POC.
[2019-07-22 20:48] VITALS: BP 146/58
[2019-07-22 23:29] LABS: CKMB 0.9 U/L (0.0-3.6); CREATINE KINASE 18 UL (21-232)
[2019-07-22 23:35] LABS: TROPONIN-I 0.199 ng/mL (0.000-0.060)
[2019-07-23 00:02] VITALS: BP 106/49
[2019-07-23 04:30] VITALS: BP 128/48
[2019-07-23 06:07] LABS: ALBUMIN 3.4 g/dL (3.4-5.0); ANION GAP 13.3 mmol/L (8-16); BILIRUBIN - TOTAL 0.89 mg/dL (0.2-1.3); CALCIUM 8.6 mg/dL (8.5-10.1); CARBON DIOXIDE 26.1 mmol/L (21.0-32.0); CREATININE - SERUM 1.7 mg/dL (0.6-1.3); POTASSIUM - SERUM 4.4 mmol/L (3.5-5.1); PROTEIN - SERUM 6.4 g/dL (6.4-8.2)
[2019-07-23 06:36] LABS: BASOPHILS 0.4 % (0-2); IMMATURE GRANULOCYTES 0.3 % (0-5); LYMPHOCYTES 7.5 % (15-50); MCHC 28.7 g/dL (31.0-37.0); MEAN PLATELET VOLUME 8.8 fL (7.4-10.4); MONOCYTES 12.4 % (2-11); NEUTROPHILS 73.4 % (40-80); PLATELET COUNT 342 10x3/uL (130-400); RBC 3.15 10x6/uL (4.20-6.10); RDW 20.8 % (11.5-14.5); WBC 7.8 10x3/uL (4.8-10.8)
[2019-07-23 06:40] LABS: HEMOGLOBIN 6.6 g/dL (13.5-17.5)
--- NOTE | 2019-07-23 07:00 | NUR ---
AM ROUNDS- PT UP TO SIDE OF BED, A/O X4, RESP EVEN AND NONLABORED ON RA. DR. WISE AT BEDSIDE, INFORMED PT THAT HE WILL BE GETTING TWO UNITS OF PRBCS. PT DENIES ANY NEEDS AT THIS TIME. CALL LIGHT REACH, NAD NOTED, WILL CONTINUE PLAN OF CARE.
[2019-07-23 08:00] VITALS: BP 133/48
--- NOTE | 2019-07-23 08:15 | NUR ---
AM MEDS GIVEN AT THIS TIME. FIRST UNIT OF PRBCS STARTED INFUSING. VITAL SIGNS STABLE. PT UP TO SIDE OF BED, DENIES ANY NEEDS AT THIS TIME. CALL LIGHT IN REACH,NAD NOTED, WILL CONTINUE TO MONITOR.
--- NOTE | 2019-07-23 09:44 | NUR ---
PT TOLERATING BLOOD WELL, DENIES ANY NEEDS AT THIS TIME, CALL LIGHT IN REACH, NAD NOTED, WILL CONTINUE TO MONITOR.
--- NOTE | 2019-07-23 11:38 | NUR ---
FIRST UNIT OF PRBCS DONE INFUSING, VITAL SIGNS STABLE, HUNG SECOND UNIT AT THIS TIME. PT DENIES ANY NEEDS AT THIS TIME. CALL LIGHT IN REACH, NAD NOTED, WILL CONTINUE TO MONITOR.
--- NOTE | 2019-07-23 11:41 | HP ---
PATIENT: HUMBLE QUEEN MEDICAL RECORD: [id number] ACCOUNT: [id number] LOCATION:[address] : 44 ADMISSION DATE: 07/22/19 PCP: ALBERTINA DAILY HISTORY AND PHYSICAL EXAMINATION ADDENDUM Pacemaker was interrogated. His atrial fibrillation is chronic. His pacemaker is set at VVI, hence at this time, we will not try rhythm control, only rate control. As well, he has been on blood thinners in the past and has had bleeding problems. He was taken off of the Eliquis and he refuses restarting the Eliquis and he understands the risk of thrombotic event including stroke and and accepts this. Hence, we will leave him off blood thinners and try only for rate control with the addition of beta blockade and calcium channel blockers to his digoxin. TRANSINT:[id number] Voice Confirmation ID: [id number] DOCUMENT ID: [id number] FRANCISCA VAZQUEZ MD at 1141 CC: [id number] DICTATION DATE: 07/22/19 1200 COLLAR RUNNER: 07/22/19 1209 ADM IN [place] [address] [place] [address]
--- NOTE | 2019-07-23 11:41 | HP ---
PATIENT: HUMBLE QUEEN MEDICAL RECORD: [id number] ACCOUNT: [id number] LOCATION:[address] : 44 ADMISSION DATE: 07/22/19 PCP: ALBERTINA DAILY HISTORY AND PHYSICAL EXAMINATION DIAGNOSES: 1. Angina. 2. Coronary artery disease. 3. Previous percutaneous transluminal coronary angioplasty stent. 4. Atrial fibrillation. 5. Sick sinus syndrome. 6. Status post pacemaker. 7. Insulin-dependent diabetes. 8. Anemia. 9. Obesity. HISTORY OF PRESENT ILLNESS: This is a gentleman who is followed by Dr. Dolan. He has a history of coronary artery disease, previous stent, last being in January. He has chronic anemia and received iron transfusions. He was on the way to get his iron transfusion. He developed chest discomfort, came to the Emergency Room. It is like that of his previous angina. It is relatively typical angina, heaviness, aching sensation across the anterior chest. One week ago, he was in [place] receiving an iron transfusion. He developed chest discomfort. There, he was told he had a myocardial infarction; however, underwent cardiac catheterization and was told he had no significant disease of hemodynamic significance at this time. He is still more short of breath. He is in atrial fibrillation with rapid ventricular response. He has history of atrial fibrillation, but is not on any antiarrhythmic medications. He does have a pacemaker. PHYSICAL EXAMINATION: CONSTITUTIONAL/GENERAL APPEARANCE: Well nourished, well developed, appears stated age. EYES: Lids and conjunctivae noninjected. No discharge. No pallor. ENT: Lips within normal limit. No cyanosis. No pallor. NECK: Carotid arteries, bilateral normal upstroke. No bruits. No thrills. No jugular venous pressure or distention. CERVICAL LYMPH NODES: Nontender. Nonenlarged. THYROID: Not enlarged. No nodules. CARDIOVASCULAR: Heart is irregular irregular, 130-140 with atrial fibrillation. RESPIRATORY: Respiratory effort, unlabored. Normal curvature. No thoracic deformity. No chest wall tenderness. Percussion, resonant. Auscultation, clear. No wheezes, no rales, no rhonchi. ABDOMEN: Soft, nondistended, nontender. No abdominal pain, no vomiting and normal appetite. MUSCULOSKELETAL: No joint tenderness, normal gait, normal tone. SKIN: Warm and dry. OVERALL IMPRESSION: 1. Angina. He has no ST-T abnormalities on his EKG. We will await troponin, most likely it is demand ischemia from the atrial fibrillation. At this time, doubt repeat cardiac catheterization will be needed unless he continues to have the chest discomfort. We obviously cannot get the cath film from [facility] at this time. We will see serial troponins and his chest pain with control of the atrial fibrillation. HISTORY AND PHYSICAL [id number] HUMBLE QUEEN 2. Atrial fibrillation. It is difficult to say if this is new onset atrial fibrillation or if he has a history of atrial fibrillation, but with the pacemaker, we can interrogate this until the duration of this episode of atrial fibrillation. We will anticoagulate him and hopefully rate control or cardiovert him. TRANSINT:[id number] Voice Confirmation ID: [id number] DOCUMENT ID: [id number] FRANCISCA VAZQUEZ MD at 1141 CC: [id number] DICTATION DATE: 07/22/19 1043 AUTOMOBILE SERVICE WRITER: 07/22/19 1103 ADM IN [facility] [address] [place] [address]
[2019-07-23 12:00] VITALS: BP 130/46
--- NOTE | 2019-07-23 12:04 | NUR ---
BLOOD SUGAR OF 252, 10UNITS OF HUMULIN GIVEN PER S/S. ALSO PROVIDED PT WITH FRESH CUP OF WATER, NAD NOTED, WILL CONTINUE TO MONITOR.
--- NOTE | 2019-07-23 14:31 | NUR ---
SECOND UNIT OF PRBCS FINISHED INFUSING. POST VITAL SIGNS STABLE, PT RESTING COMFORTABLY IN BED, DENIES ANY NEEDS AT THIS TIME. CALL LIGHT IN REACH, NAD NOTED, WILL CONITNUE TO MONITOR.
[2019-07-23 16:00] VITALS: BP 132/54
--- NOTE | 2019-07-23 16:10 | MORECARE ---
CASE MANAGEMENT DISCHARGE SUMMARY PATIENT: HUMBLE QUEEN UNIT: [id number] ADM DATE: 07/22/19 AGE: 78 : 42 SEX: M ROOM/BED: D.3367 AUTHOR: HARRY,DOC PHYSICIAN: REFERRING PHYSICIAN: FRANCISCA VAZQUEZ MD DATE OF SERVICE: 07/23/19 Discharge Plan Patient Name: HUMBLE QUEEN Facility: [facility]:[place] : 1940 Planned Disposition: Home Anticipated Discharge Date: 07/25/19 Discharge Date: Expected LOS: 3 Initial Reviewer: [email or web address] Initial Review Date: 07/22/2019 Generated: 07/23/19 5:10 pm Comments DCP- Discharge Planning Updated by [email or web address]: Sona Heller on 07/23/19 3:[address] DC PLAN: Return home with independently. ANTICIPATED DC NEEDS: Denied dc needs. CM met with patient to complete initial dc planning assessment. CM educated patient on the CM role and verbal consent given by patient to complete assessment. CM verified patient's address, phone number, and emergency contact phone numbers. Patient lives at home with his . He is independent in his care. At discharge patient plans to return home and feels this is a safe discharge. CM discussed availability of home health, rehab services, and medical equipment. Patient denied known discharge needs at this time. Patient reports his will transport him home at time of discharge. CM will continue to follow and will assist as needed with dc plans/needs. Sona Heller RN, [facility] DCPIA - Discharge Planning Initial Assessment Updated by [email or web address]: Sona Heller on 07/23/19 4:07 pm * Is the patient Alert and Oriented? Yes * How many steps to enter\exit or inside your home? None * PCP Dr. Garcia * [facility] [address] * Preadmission Environment Home with Family * ADLs Independent * Equipment CPAP Glucometer * List name and contact numbers for known caregivers / representatives who currently or will assist patient after discharge: Odalys Queen - - [phone] * Verbal permission to speak to the caregivers and representatives has been obtained from the patient. Yes * Community resources currently utilized None * Additional services required to return to the preadmission environment? No * Can the patient safely return to the preadmission environment? Yes * Has this patient been hospitalized within the prior 30 days at any hospital? No Coverage Notice Reviewer: [id number] - Sona Heller Notice Issued Date-Time: 07/22/2019 10:30 Notice Type: Medicare Outpatient Observation Notice Notice Delivered To: Family Member Relationship to Patient: Spouse Swing Tender Name: Odalys Queen Delivery Method: HAND - Hand Delivered Nevaeh Days: Prior Verbal Notification: Recipient Understood Notice: Recipient Signature: Med Rec Note Co-signed by Attending: Coverage Notice Comment: DELANEY delivered, explained, signed by the patient's spouse, and placed in his chart. Signed form also left with patient and his . Sona Heller RN, [facility] Patient Name: HUMBLE QUEEN Page [phone] at 1610 All edits/amendments must be made on the electronic document DICTATION DATE: 07/23/191608 SERVICE ATTENDANT CAFETERIA: COLT 07/23/191608 RPT#: [id number] DC DATE: STATUS: ADM IN [facility] [address] [place] [address] END OF REPORT
[2019-07-23 16:43] LABS: HEMATOCRIT 27.4 % (42.0-54.0)
[2019-07-23 16:45] LABS: HEMOGLOBIN 8.1 g/dL (13.5-17.5)
[2019-07-23] MEDS ORDERED: METOPROLOL TART50 MG PO (16:59)
--- NOTE | 2019-07-23 17:29 | NUR ---
PROVIDED VERBAL AND WRITTEN DISCHARGE TEACHING TO PT, WHO VERBALIZED UNDERSTANDING REGARDING TEACHING. D/C RT HAND IVS WITH CATHETER TIPS INTACT. PT WILL NOTIFY NURSE WHEN READY FOR WHEELCHAIR.
--- NOTE | 2019-07-23 18:09 | NUR ---
PT LEFT UNIT VIA WHEELCHAIR, WITH ALL BELONGINGS, NAD NOTED.
--- NOTE | 2019-07-24 07:03 | MORECARE ---
CASE MANAGEMENT DISCHARGE SUMMARY PATIENT: HUMBLE QUEEN UNIT: [id number] ADM DATE: 07/22/19 AGE: 78 : 42 SEX: M ROOM/BED: D.7565 AUTHOR: HARRY,DOC PHYSICIAN: REFERRING PHYSICIAN: FRANCISCA VAZQUZE MD DATE OF SERVICE: 07/24/19 Discharge Plan Patient Name: HUMBLE QUEEN Facility: [facility]:[place] : 1940 Planned Disposition: Home Anticipated Discharge Date: 07/23/19 Discharge Date: 07/23/2019 Expected LOS: 1 Initial Reviewer: [email or web address] Initial Review Date: 07/22/2019 Generated: 07/24/19 8:03 am Comments DCP- Discharge Planning Updated by [email or web address]: Sona Heller on 07/23/19 3:[address] DC PLAN: Return home with independently. ANTICIPATED DC NEEDS: Denied dc needs. CM met with patient to complete initial dc planning assessment. CM educated patient on the CM role and verbal consent given by patient to complete assessment. CM verified patient's address, phone number, and emergency contact phone numbers. Patient lives at home with his . He is independent in his care. At discharge patient plans to return home and feels this is a safe discharge. CM discussed availability of home health, rehab services, and medical equipment. Patient denied known discharge needs at this time. Patient reports his will transport him home at time of discharge. CM will continue to follow and will assist as needed with dc plans/needs. Sona Heller RN, [facility] DCPIA - Discharge Planning Initial Assessment Updated by [email or web address]: Sona Heller on 07/23/19 4:07 pm * Is the patient Alert and Oriented? Yes * How many steps to enter\exit or inside your home? None * PCP Dr. Garcia * [facility] [address] * Preadmission Environment Home with Family * ADLs Independent * Equipment CPAP Glucometer * List name and contact numbers for known caregivers / representatives who currently or will assist patient after discharge: Odalys Queen - - [phone] * Verbal permission to speak to the caregivers and representatives has been obtained from the patient. Yes * Community resources currently utilized None * Additional services required to return to the preadmission environment? No * Can the patient safely return to the preadmission environment? Yes * Has this patient been hospitalized within the prior 30 days at any hospital? No Coverage Notice Reviewer: [id number] - Sona Heller Notice Issued Date-Time: 07/22/2019 10:30 Notice Type: Medicare Outpatient Observation Notice Notice Delivered To: Family Member Relationship to Patient: Spouse Vocational Counselor Name: Odalys Queen Delivery Method: HAND - Hand Delivered Nevaeh Days: Prior Verbal Notification: Recipient Understood Notice: Recipient Signature: Med Rec Note Co-signed by Attending: Coverage Notice Comment: DELANEY delivered, explained, signed by the patient's spouse, and placed in his chart. Signed form also left with patient and his . Sona Heller RN, [facility] Last DP export: 07/23/19 3:10 Patient Name: HUMBLE QUEEN Page [phone] at 0703 All edits/amendments must be made on the electronic document DICTATION DATE: 07/24/19702 DRIVER LICENSE REVIEWING OFFICER: COLT 07/24/19702 RPT#: [id number] DC DATE:07/23/19 STATUS: DIS IN [facility] [address] [place] [address] END OF REPORT
--- NOTE | 2019-07-24 09:45 | DS ---
PATIENT:HUMBLE NAVARRO :44 MEDICAL RECORD: [id number] DISCHARGE SUMMARY ADMISSION DATE: 07/22/19 DISCHARGE DATE: 07/23/19 DISCHARGE DIAGNOSES: 1. Chest pain. 2. Non-Q-wave myocardial infarction. 3. Atrial fibrillation, chronic. 4. Hypertension. 5. Tachycardia. 6. Chronic anemia. HOSPITAL COURSE: Mr. Navarro presented with chest discomfort. He underwent cardiac catheterization in [place] 1 week ago and was told he had no significant disease. His chest discomfort was demand ischemia from a chronic anemia at 6.6 as well as atrial fibrillation with rapid ventricular response. He was transfused 2 units of packed red blood cells, started on metoprolol in addition to his digoxin, had no further anginal symptomatology. He was discharged home with the addition of the metoprolol. He will follow up with Dr. Martinez for the anemia and follow up with [facility] as previously scheduled. TRANSINT:[id number] Voice Confirmation ID: [id number] DOCUMENT ID: [id number] FRANCISCA VAZQUEZ MD at 0945 CC: [id number] DICTATION DATE: 07/23/19 1642 NEUROPSYCHOLOGY MEDICAL CONSULTANT: 07/24/19 0653 DIS IN 07/23/19 [facility] [address] [place] [id number]
--- NOTE | 2019-07-24 17:14 | CN ---
PATIENT NAME:HUMBLE QUEEN MEDICAL RECORD: [id number] : 44 LOCATION:D. D.2115 ADMIT DATE: 07/22/19 ACCOUNT: [id number] CONSULTING PHYSICIAN: RONALD WISE MD REFERRING PHYSICIAN: FRANCISCA DEAN MD DATE OF CONSULTATION: 07/22/2019 MEDICAL CONSULTATION ADMITTING PHYSICIAN: Francisca Dean MD REASON FOR CONSULTATION: Medical management of anemia. HISTORY OF PRESENT ILLNESS: The patient is a 78-year-old male who sees Dr. Fadi Garcia for his primary physician, presented to his oncologist today for followup on his anemia. His last hemoglobin around 9.6. He started feeling lethargic the last 2 weeks and went to see Dr. Martinez at [facility] today. His hemoglobin was 6.5 and he was complaining of some chest pain, so they referred him to the ED. In ED, he was noted to be in atrial fibrillation, which is chronic for him with a faster rate. Dr. Dean admitted the patient for serial cardiac enzymes and control of his AFib. He is currently on Cardizem drip. He is receiving blood. He was evaluated at the [facility] in [place] earlier this year and his chronic anemia was felt secondary to angiodysplasia and AVMs. He is receiving IV iron by Dr. Martinez. He states that he had chest pain from that several weeks ago and they are modifying his treatment. He denies any melena, vomiting of blood, or dyspepsia. PAST MEDICAL HISTORY: As above including anemia of GI blood loss, AVMs, hypertension, sick sinus syndrome with pacemaker, chronic atrial fibrillation, history of remote CVA, cataracts, AODM type 2, morbid obesity, history of pneumonia, history of SANDRA with CPAP use, chronic back pain, osteoarthritis, history of cancer of the prostate, history of coronary artery disease post-PTCA, history of gout, history of gastric polyp per EGD. PAST SURGICAL HISTORY: He has had cataract surgery OU, T&A, prostatectomy, left total knee replacement, right partial knee replacement, right retinal repair, colonoscopy, and pacemaker placement, PTCA. ALLERGIES: MORPHINE, CODEINE, AND LATEX. MEDICATIONS: Active medications are metformin 500 mg 1 tablet b.i.d., metoprolol 25 mg twice a day, colchicine 0.6 mg daily, digoxin 0.125 mg at noon daily, spironolactone 25 mg by mouth once daily, Protonix 40 mg q.a.m., Basaglar insulin 40 units subcutaneous at bedtime, aspirin 81 mg a day, allopurinol 100 mg a day, bumetanide 2 mg tablets 1 p.o. b.i.d. FAMILY HISTORY: Parents from cardiovascular disease and cancer. One sibling had cancer as well, he is a nonsmoker, lifelong. REVIEW OF SYSTEMS: GENERAL: He has been mildly fatigued for the last 2 weeks. No fever. HEENT: No recent visual change, sinus congestion, or sore throat. RESPIRATORY: Mild short of breath on exertion. CARDIAC: He had chest pain today and increased heart rate. GASTROINTESTINAL: No nausea, vomiting, change in stools, blood per rectum or CONSULT REPORT [id number] HUMBLE QUEEN melena. GENITOURINARY: Has nocturia once nightly. ENDOCRINE: Denies polyuria, polydipsia, heat or cold intolerance. NEUROLOGIC: Denies headache, motor or sensory deficits or paresthesias. PSYCHIATRIC: Denies depressed mood. PHYSICAL EXAMINATION: VITAL SIGNS: Showed a heart rate of 100 and irregular, respirations 18, blood pressure is 116/66 with a sat 94% on room air. GENERAL: The patient is obese, alert and oriented, in no acute distress. EYES: Clear. NECK: No bruits. CHEST: Distant breath sounds without wheeze. HEART: Regular rate without gallop. ABDOMEN: Obese, soft, nontender. EXTREMITIES: He has 2+ pretibial edema bilaterally to the knees. INTEGUMENT: No rash appreciated. No petechiae. No hematomas. NEUROLOGICAL: Oriented to person, place, and time. Cranial nerves grossly intact. Gait was not tested. LABORATORY DATA: Hemoglobin 6.5, hematocrit 23.3, platelet count 354,000. INR is 1.28. Electrolytes are normal. BUN and creatinine are 46 and 1.6 at his baseline. Glucose was 305, creatinine 15. ASSESSMENT: 1. Symptomatic anemia. 2. Uncontrolled atrial fibrillation, chronic. 3. History of angiodysplasia with AVMs and recurrent anemia. 4. SANDRA. 5. Morbid obesity. 6. History of CAD. 7. Azotemia. PLAN: The patient has been admitted by Dr. Dean and placed on Cardizem. We will transfuse to acceptable hemoglobin, diurese as indicated. Hematology consult if the patient does not improve. TRANSINT:[id number] Voice Confirmation ID: [id number] DOCUMENT ID: [id number] RONALD WISE MD at 1714 CC: [id number] DICTATION DATE: 07/22/191716 AUTOMATIC CLIPPER: 07/23/19 0017 DIS IN 07/23/19 [place] [id number] [place] [address]
== END 2019-07-23 18:09 | disposition home or self-care (01) | DRG 811 ==
LOC: D.ER 09:58 → D.CATH 09:58 → EDSTATUS 10:40 → OBSVTIME 11:41 → D.M2 11:41 → D.SDCHOLD 07-23 10:40 → D.M2 07-23 18:09
PROVIDERS: Family Medicine; ADMIT Internal Medicine Interventional Cardiology; ATTEND Internal Medicine Interventional Cardiology
DX: D50.9 Iron deficiency anemia, unspecified (principal); I21.A1 Myocardial infarction type 2; I48.20 Chronic atrial fibrillation, unspecified; Z68.42 Body mass index [BMI] 45.0-49.9, adult; I25.119 Atherosclerotic heart disease of native coronary artery with unspecified angina pectoris; E11.9 Type 2 diabetes mellitus without complications; Z95.0 Presence of cardiac pacemaker; I10 Essential (primary) hypertension; E66.01 Morbid (severe) obesity due to excess calories; Z86.73 Personal history of transient ischemic attack (TIA), and cerebral infarction without residual deficits

== ENCOUNTER 2019-12-26 15:56 | Emergency (ER) | payer MEDICARE, BC ==
[~2019-12-26] VITALS: Ht 188 cm; Wt 157.7 kg
[~2019-12-26 15:56] MED LIST changes: +METOPROLOL TART50 MG PO
[2019-12-26 16:04] VITALS: Ht 188 cm; Wt 157.7 kg
[2019-12-26 16:25] LABS: BASOPHILS 0.5 % (0-2); EOSINOPHILS 8.1 % (0-7); HEMATOCRIT 28.8 % (42.0-54.0); HEMOGLOBIN 8.1 g/dL (13.5-17.5); IMMATURE GRANULOCYTES 0.4 % (0-5); LYMPHOCYTES 8.4 % (15-50); MCH 20.6 pg (26.0-34.0); MCHC 28.1 g/dL (31.0-37.0); MCV 73.1 fL (80.0-100.0); MEAN PLATELET VOLUME 8.5 fL (7.4-10.4); NEUTROPHILS 73.6 % (40-80); PLATELET COUNT 316 10x3/uL (130-400); RBC 3.94 10x6/uL (4.20-6.10); RDW 18.8 % (11.5-14.5)
[2019-12-26 16:33] LABS: APTT 36.9 SECONDS (22.8-39.4); CALC OSMOLALITY 289 mosm/kg (275-300); CALCIUM 8.6 mg/dL (8.5-10.1); CARBON DIOXIDE 27.5 mmol/L (21.0-32.0); CHLORIDE - SERUM 101 mmol/L (98-107); CREATININE - SERUM 1.7 mg/dL (0.6-1.3); GLUCOSE 135 mg/dL (74-106); INR 1.21 (0.85-1.17); POTASSIUM - SERUM 4.3 mmol/L (3.5-5.1); PROTIME 15.2 SECONDS (11.6-15.0); SODIUM 138 mmol/L (136-145); UREA NITROGEN 47 mg/dL (7-18); eGFR NON AFRICAN AMERICAN 42 mL/min (90-120)
[2019-12-26 16:49] LABS: ALBUMIN 3.6 g/dL (3.4-5.0); ALKALINE PHOSPHATASE 111 U/L (30-120); ALT (SGPT) 18 U/L (10-68); CKMB 0.5 U/L (0.0-3.6); CREATINE KINASE 19 UL (21-232); MAGNESIUM - SERUM 2.2 mg/dL (1.8-2.4); PROTEIN - SERUM 7.3 g/dL (6.4-8.2)
[2019-12-26 16:50] LABS: TROPONIN-I < 0.017 ng/mL (0.000-0.060)
[2019-12-26 19:22] VITALS: BP 117/36
== END 2019-12-26 19:22 | disposition home or self-care (01) ==
LOC: D.ER 15:56
PROVIDERS: Family Medicine
DX: I50.9 Heart failure, unspecified (principal); E11.9 Type 2 diabetes mellitus without complications; Z79.84 Long term (current) use of oral hypoglycemic drugs; I25.2 Old myocardial infarction; Z95.0 Presence of cardiac pacemaker; Z95.5 Presence of coronary angioplasty implant and graft; I48.91 Unspecified atrial fibrillation; R07.9 Chest pain, unspecified

== ENCOUNTER 2020-01-01 10:10 | Inpatient (IN) | payer MEDICARE, BC ==
[~2020-01-01] VITALS: Ht 188 cm; Wt 156.4 kg
--- NOTE | 2020-01-01 10:22 | NUR ---
PT ARRIVED TO FLOOR VIA WC AND AMBULATED TO BED. PT ALERT AND ORIENTED. PLACED ON 2L OF O2. PT HAS HOME CPAP HE WEARS AT NIGHT AND PRN. PLACED ON TELEMETRY. STANDING WEIGHT ON SCALE 352. WILL START IV. PT STATES HE HAS NO FURTHER NEEDS AT THIS TIME. BED LOW. CL IN REACH.
[2020-01-01 10:52] VITALS: BP 124/49
[2020-01-01] MEDS ORDERED: BASAGLAR K100 UNIT/1 SC (11:32)
[2020-01-01] MEDS ORDERED: PROTONIX40 MG PO (11:34)
--- NOTE | 2020-01-01 12:43 | NUR ---
LEFT FA 20G IV INSERTED ON SECOND ATTEMPT.
[2020-01-01 15:44] LABS: ANION GAP 15.1 mmol/L (8-16); CALCIUM 8.6 mg/dL (8.5-10.1); CARBON DIOXIDE 26.2 mmol/L (21.0-32.0); CREATININE - SERUM 1.7 mg/dL (0.6-1.3); POTASSIUM - SERUM 4.3 mmol/L (3.5-5.1)
[2020-01-01 16:20] VITALS: BP 130/88
[2020-01-01 17:55] VITALS: BP 124/49; Ht 188 cm; Wt 156.4 kg
--- NOTE | 2020-01-01 19:30 | NUR ---
PT IN BED, AAO X 3, RESP EVEN AND UNLABORED, NO DISTRESS NOTED, CL IN REACH, SR UP X 2. NO CONCERNS OR WANTS NOTED AT THIS TIME.
[2020-01-01 20:00] VITALS: BP 122/51
[2020-01-02] VITALS: BP 120/37
--- NOTE | 2020-01-02 03:50 | NUR ---
I have reviewed this patient and I concur with the Shift Assessment completed by the Licensed Practical Nurse today this shift.
[2020-01-02 04:00] VITALS: BP 114/42
[2020-01-02 06:18] LABS: ANION GAP 10.7 mmol/L (8-16); CALCIUM 8.4 mg/dL (8.5-10.1); CARBON DIOXIDE 29.1 mmol/L (21.0-32.0); CREATININE - SERUM 1.6 mg/dL (0.6-1.3); POTASSIUM - SERUM 3.8 mmol/L (3.5-5.1)
[2020-01-02 06:38] LABS: BASOPHILS 0.6 % (0-2); HEMATOCRIT 27.5 % (42.0-54.0); HEMOGLOBIN 7.7 g/dL (13.5-17.5); IMMATURE GRANULOCYTES 0.4 % (0-5); LYMPHOCYTES 9.6 % (15-50); MCH 20.1 pg (26.0-34.0); MCV 71.6 fL (80.0-100.0); MEAN PLATELET VOLUME 8.9 fL (7.4-10.4); MONOCYTES 11.5 % (2-11); NEUTROPHILS 68.9 % (40-80); PLATELET COUNT 357 10x3/uL (130-400); RBC 3.84 10x6/uL (4.20-6.10); RDW 18.5 % (11.5-14.5); WBC 6.8 10x3/uL (4.8-10.8)
[2020-01-02 09:08] VITALS: BP 159/66
[2020-01-02 12:57] VITALS: BP 113/47
[2020-01-02 20:00] VITALS: BP 128/34
[2020-01-03 04:00] VITALS: BP 121/41
[2020-01-03 04:35] LABS: BASOPHILS 0.6 % (0-2); EOSINOPHILS 9.7 % (0-7); HEMATOCRIT 27.5 % (42.0-54.0); HEMOGLOBIN 7.6 g/dL (13.5-17.5); IMMATURE GRANULOCYTES 0.3 % (0-5); LYMPHOCYTES 10.1 % (15-50); MCHC 27.6 g/dL (31.0-37.0); MCV 72.4 fL (80.0-100.0); MEAN PLATELET VOLUME 8.7 fL (7.4-10.4); MONOCYTES 12.9 % (2-11); NEUTROPHILS 66.4 % (40-80); PLATELET COUNT 334 10x3/uL (130-400); RDW 18.6 % (11.5-14.5); WBC 6.9 10x3/uL (4.8-10.8)
[2020-01-03 05:03] LABS: ANION GAP 12.9 mmol/L (8-16); CALCIUM 8.6 mg/dL (8.5-10.1); CARBON DIOXIDE 28.7 mmol/L (21.0-32.0); CREATININE - SERUM 1.7 mg/dL (0.6-1.3); POTASSIUM - SERUM 3.6 mmol/L (3.5-5.1)
--- NOTE | 2020-01-03 08:58 | EC ---
PATIENT:HUMBLE QUEEN DATE OF SERVICE: 01/01/20 SEX: M MEDICAL RECORD: [id number] DATE OF : 44 LOCATION:D.M2 D.210 AGE OF PATIENT: 79 ADMISSION DATE: 01/01/20 REFERRING PHYSICIAN: INTERPRETING PHYSICIAN: MILO LOPEZ MD ECHOCARDIOGRAM REPORT ECHO CHARGES 4 ECHO COMPLETE Date: 01/01/20 CLINICAL DIAGNOSIS: CHF ECHOCARDIOGRAPHIC MEASUREMENTS (adult normal given) AC root (d.<3.7cm) 3.4 cm LV Septum d (<1.2 cm> 1.3 cm Valve Excursion 1.8 cm LV Septum (systole) 1.8 cm Left Atria (s.<4.0cm> 6.7 cm LVPW d(<1.2cm) 1.3 cm RV (d.<2.3cm) 4.4 cm LVPW (sytole) 1.9 cm LV diastole(<5.6CM) 6.1 cm MV E-F(>70mm/sec) cm LV systole 4.0 cm LVOT Diameter 2.0 cm MV exc.(>10mm) cm Est.ejection fraction (50-75%) % DOPPLER: LVIT cm/sec A cm/sec E 171 cm/sec LA cm/sec RVSP 62.0 mmHg LVOT 103 cm/sec AOP1/2T m/s Asc. Ao 213 cm/sec RVOT 74.0 cm/sec RA cm/sec PA 107 cm/sec AV Gradient Peak 18.1 mmHg AV Mean 9.8 mmHg AV Area 1.4 cm MV Gradient Peak 13.0 mmHg MV Mean 3.5 mmHg MV Area cm COMMENTS: Home Visitor: 1 RAÚL STOREYOE Reading Tutor: 3 Dr. Dolan TAPE# PACS Pericardial Effusion N DATE OF SERVICE: 01/01/2020 LVH is present. LV internal dimension is dilated at 6.1 cm. LV is mildly globally hypo with mild reduced EF, estimated EF 40%. Aortic valve sclerosis without stenosis by Doppler interrogation. Left atrium is dilated at 6.7 cm. Mitral valve shows no prolapse. Moderate MR. Right-sided chambers are grossly normal. Moderate TR. TRANSINT:[id number] Voice Confirmation ID: [id number] DOCUMENT ID: [id number] ECHOCARDIOGRAM REPORT [id number] DIONPATRICA ZULUAGANDEL Dejan MILO LOPEZ MD at 0858 CC: [id number] DICTATION DATE: 01/01/20 1608 LICENSED SALES ASSISTANT: 01/01/20 1813 ADM IN [place] [id number] [place] [id number]
--- NOTE | 2020-01-03 10:00 | NUR ---
I have reviewed this patient and I concur with the Shift Assessment completed by the Licensed Practical Nurse today this shift.
[2020-01-03 10:08] VITALS: BP 153/80
--- NOTE | 2020-01-03 13:58 | NUR ---
PT DISCHARGED HOME VIA WHEELCHAIR WITH FAMILY. PIV REMOVED WITH CATHETER TIP FULLY INTACT. PT SIGNED PROPER DISCHARGE INSTRUCTION AND REMOVED ALL VALUABLES FROM THE ROOM. TELEMETRY REMOVED AND RETURNED.
--- NOTE | 2020-01-03 17:10 | MORECARE ---
CASE MANAGEMENT DISCHARGE SUMMARY PATIENT: HUMBLE QUEEN UNIT: [id number] ADM DATE: 01/01/20 AGE: 79 : 42 SEX: M ROOM/BED: D.8162 AUTHOR: HARRY,DOC PHYSICIAN: REFERRING PHYSICIAN: ALBERTINA DAILY MD DATE OF SERVICE: 01/03/20 Discharge Plan Patient Name: HUMBLE QUEEN Facility: [facility]:[place] : 1940 Planned Disposition: Home Anticipated Discharge Date: 01/03/20 Discharge Date: 01/03/2020 Expected LOS: 2 Initial Reviewer: [email or web address] Initial Review Date: 01/03/2020 Generated: 01/03/20 6:10 pm Comments DCP- Discharge Planning Updated by [email or web address]: Ludwig Womack on 01/03/20 4:[address] Patient Name: HUMBLE QUEEN Admission Status: Elective Accout number: [id number] Admission Date: 01-01-2020 : 1940 Admission Diagnosis:SHORTNESS OF BREATH Attending: ALBERTINA DAILY Current LOS: 2 Anticipated DC Date: 01-03-2020 Planned Disposition: Home Primary Insurance: MEDICARE A & B Discharge Planning Comments: CM MET WITH PT IN ROOM TO DISCUSS DISCHARGE PLANNING AND NEEDS. PT REPORTS LIVING AT HOME INDEPENDENTLY WITH HIS . PT HAS GLUCOMETER CPAP FROM [facility]. PT HAS NO OUTSIDE SERVICES ASSISTING IN THE HOME. CM DISCUSSED AVAILABILITY OF HOME HEALTH, REHAB SERVICES AND MEDICAL EQUIPMENT. PT DENIES DISCHARGE NEEDS, REPORTS HIS WILL PICK HIM UP FOR DISCHARGE HOME. IMPORTANT MESSAGE FROM MEDICARE PROVIDED AND EXPLAINED. Correctional Officer: Ludwig Womack DCPIA - Discharge Planning Initial Assessment Updated by [id number]: Ludwig Womack on 01/03/20 5:05 pm * Is the patient Alert and Oriented? Yes * How many steps to enter\exit or inside your home? NONE * PCP DR. DAILY * Pharmacy [facility] [address] * Preadmission Environment Home with Family * ADLs Independent * Equipment CPAP Glucometer * Other Equipment [facility] - PROVIDER * List name and contact numbers for known caregivers / representatives who currently or will assist patient after discharge: LEORA QUEEN, SPOUSE, * Verbal permission to speak to the caregivers and representatives has been obtained from the patient. N/A * Community resources currently utilized None * Please name any agencies selected above. NONE * Additional services required to return to the preadmission environment? No * Can the patient safely return to the preadmission environment? Yes * Has this patient been hospitalized within the prior 30 days at any hospital? No Coverage Notice Reviewer: [id number] David Womack Notice Issued Date-Time: 01/03/2020 13:15 Notice Type: IM Discharge Notice Notice Delivered To: Patient Relationship to Patient: Turntable Engineer Name: Delivery Method: HAND - Hand Delivered Nevaeh Days: Prior Verbal Notification: Recipient Understood Notice: Yes Recipient Signature: Yes Med Rec Note Co-signed by Attending: Coverage Notice Comment: Patient Name: HUMBLE QUEEN Page [phone] at 1710 All edits/amendments must be made on the electronic document DICTATION DATE: 01/03/201709 ROUTE JUMPER: COLT 01/03/201709 RPT#: [id number] DC DATE:01/03/20 STATUS: DIS IN [facility] [address] [place] [address] END OF REPORT
== END 2020-01-03 13:59 | disposition home or self-care (01) | DRG 291 ==
LOC: D.M2 10:10
PROVIDERS: Internal Medicine Cardiovascular Disease; ADMIT Family Medicine; ATTEND Family Medicine
DX: I13.0 Hypertensive heart and chronic kidney disease with heart failure and stage 1 through stage 4 chronic kidney disease, or unspecified chronic kidney disease (principal); J96.91 Respiratory failure, unspecified with hypoxia; I48.20 Chronic atrial fibrillation, unspecified; I50.9 Heart failure, unspecified; E11.22 Type 2 diabetes mellitus with diabetic chronic kidney disease; N18.9 Chronic kidney disease, unspecified; D63.1 Anemia in chronic kidney disease; I25.10 Atherosclerotic heart disease of native coronary artery without angina pectoris; Z95.0 Presence of cardiac pacemaker

== ENCOUNTER 2020-01-08 15:01 | Inpatient (IN) | payer MEDICARE, BC ==
[~2020-01-08] VITALS: Ht 188 cm; Wt 155.9 kg
[~2020-01-08 15:01] MED LIST changes: +BASAGLAR K100 UNIT/1 SC
[2020-01-08 15:48] LABS: BASOPHILS 0.4 % (0-2); EOSINOPHILS 5.8 % (0-7); IMMATURE GRANULOCYTES 0.2 % (0-5); LYMPHOCYTES 5.7 % (15-50); MCHC 27.4 g/dL (31.0-37.0); MCV 72.4 fL (80.0-100.0); MEAN PLATELET VOLUME 8.8 fL (7.4-10.4); MONOCYTES 8.1 % (2-11); NEUTROPHILS 79.8 % (40-80); PLATELET COUNT 327 10x3/uL (130-400); RBC 3.73 10x6/uL (4.20-6.10); RDW 18.6 % (11.5-14.5); WBC 9.6 10x3/uL (4.8-10.8)
[2020-01-08 15:53] LABS: INR 1.2 (0.85-1.17); PROTIME 15.1 SECONDS (11.6-15.0)
[2020-01-08 15:54] LABS: APTT 39.6 SECONDS (22.8-39.4)
[2020-01-08 15:55] LABS: CALC OSMOLALITY 293 mosm/kg (275-300); CALCIUM 8.7 mg/dL (8.5-10.1); CARBON DIOXIDE 28.3 mmol/L (21.0-32.0); CHLORIDE - SERUM 101 mmol/L (98-107); CREATININE - SERUM 1.6 mg/dL (0.6-1.3); POTASSIUM - SERUM 4.4 mmol/L (3.5-5.1); SODIUM 138 mmol/L (136-145); UREA NITROGEN 51 mg/dL (7-18); eGFR NON AFRICAN AMERICAN 45 mL/min (90-120)
[2020-01-08 15:56] LABS: GLUCOSE 172 mg/dL (74-106)
[2020-01-08 16:01] LABS: HEMOGLOBIN 7.4 g/dL (13.5-17.5); MCH 19.8 pg (26.0-34.0)
--- NOTE | 2020-01-08 16:02 | NUR ---
CRITICAL LAB: TC FROM LAB HGB 7.[address] CARRENO NOTIFIED
[2020-01-08 16:14] LABS: ALBUMIN 3.6 g/dL (3.4-5.0); ALKALINE PHOSPHATASE 112 U/L (30-120); ALT (SGPT) 17 U/L (10-68); BILIRUBIN - TOTAL 0.49 mg/dL (0.2-1.3); CKMB 0.8 U/L (0.0-3.6); CREATINE KINASE 21 UL (21-232); MAGNESIUM - SERUM 2.1 mg/dL (1.8-2.4); PROTEIN - SERUM 7.4 g/dL (6.4-8.2); TROPONIN-I < 0.017 ng/mL (0.000-0.060)
[2020-01-08 16:30] VITALS: BP 156/59
[2020-01-08 17:49] VITALS: BP 159/53
--- NOTE | 2020-01-08 17:56 | NUR ---
BLOOD CONSENT EXPL TO PT, VERB UNDER AND CONSENT SIGNED AND WITNESSED
--- NOTE | 2020-01-08 18:08 | NUR ---
REPORT CALLED TO CHRISTINE ALVAREZ
--- NOTE | 2020-01-08 18:15 | NUR ---
PERLA 1 COMPLETED @ [id number]
--- NOTE | 2020-01-08 18:25 | NUR ---
VOIDED 500 ML CLEAR, PALE YELLOW URINE VIA URINAL
--- NOTE | 2020-01-08 18:41 | NUR ---
TRANSPORTED TO ROOM CONDITION STABLE
--- NOTE | 2020-01-08 18:59 | NUR ---
RECEIVED PATIENT FROM ER VIA WHEELCHAIR ACCOMPANIED BY HOSPITAL STAFF. ALERT AND ORIENTED. NO C/O PAIN. NO S/S OF ACUTE DISTRESS NOTED. IV TO LEFT WRIST, SL. SITE PATENT WITHOUT REDNESS OR SWELLING. DENIES ANY NEEDS AT THIS TIME. CALL LIGHT IN REACH. WILL CONTINUE TO MONITOR.
--- NOTE | 2020-01-08 20:00 | NUR ---
ALERT RESTING IN BED WEARS C PAP AT [facility] MACHINE, SEE ADMISSION ASSESSMENT, CALL LIGHT IN REACH
--- NOTE | 2020-01-08 21:30 | NUR ---
FIRST UNIT OF BLOOD STARTED INFUSING WITHOUT DIFFICULTY
[2020-01-08 22:57] LABS: CKMB 0.8 U/L (0.0-3.6); CREATINE KINASE 22 UL (21-232); TROPONIN-I 0.021 ng/mL (0.000-0.060)
[2020-01-09 02:57] VITALS: BP 159/53; BMI 41.8
[2020-01-09 06:41] LABS: BASOPHILS 0.4 % (0-2); EOSINOPHILS 6.9 % (0-7); HEMATOCRIT 28.5 % (42.0-54.0); IMMATURE GRANULOCYTES 0.4 % (0-5); LYMPHOCYTES 8.8 % (15-50); MCH 20.7 pg (26.0-34.0); MCHC 28.1 g/dL (31.0-37.0); MCV 73.6 fL (80.0-100.0); MEAN PLATELET VOLUME 8.6 fL (7.4-10.4); MONOCYTES 10.7 % (2-11); NEUTROPHILS 72.8 % (40-80); PLATELET COUNT 309 10x3/uL (130-400); RBC 3.87 10x6/uL (4.20-6.10); RDW 19.2 % (11.5-14.5)
--- NOTE | 2020-01-09 06:50 | NUR ---
ALERT AND ORIENTED, SITTING UP ON THE SIDE OF THE BED. NO C/O PAIN. NO S/S OF ACUTE DISTRESS NOTED. CPAP ON. ON TELEMETRY 102 UNCONTROLLED A-FIB WITH BBB. IV TO LEFT WRIST, SL. SITE PATENT WITHOUT REDNESS OR SWELLING. DENIES ANYTHING FURTHER AT THIS TIME. CALL LIGHT IN REACH. WILL CONTINUE TO MONITOR.
[2020-01-09 07:12] LABS: ALBUMIN 3.4 g/dL (3.4-5.0); ALKALINE PHOSPHATASE 105 U/L (30-120); ALT (SGPT) 16 U/L (10-68); BILIRUBIN - TOTAL 0.79 mg/dL (0.2-1.3); CALC OSMOLALITY 294 mosm/kg (275-300); CALCIUM 8.5 mg/dL (8.5-10.1); CARBON DIOXIDE 29.7 mmol/L (21.0-32.0); CHLORIDE - SERUM 104 mmol/L (98-107); CREATINE KINASE 17 UL (21-232); CREATININE - SERUM 1.4 mg/dL (0.6-1.3); GLUCOSE 146 mg/dL (74-106); POTASSIUM - SERUM 4.3 mmol/L (3.5-5.1); PROTEIN - SERUM 6.5 g/dL (6.4-8.2); SODIUM 140 mmol/L (136-145); TROPONIN-I 0.022 ng/mL (0.000-0.060); UREA NITROGEN 48 mg/dL (7-18); WBC 7.1 10x3/uL (4.8-10.8); eGFR NON AFRICAN AMERICAN 52 mL/min (90-120)
[2020-01-09 08:49] VITALS: BP 129/59
[2020-01-09 09:56] LABS: CKMB 0.4 U/L (0.0-3.6); CREATINE KINASE 18 UL (21-232); TROPONIN-I 0.017 ng/mL (0.000-0.060)
[2020-01-09 11:31] LABS: HEMATOCRIT 28.3 % (42.0-54.0)
[2020-01-09 12:17] VITALS: BP 146/50
--- NOTE | 2020-01-09 12:38 | NUR ---
I have reviewed this patient and I concur with the Shift Assessment completed by the Licensed Practical Nurse today this shift.
[2020-01-09 17:17] VITALS: BP 144/56
--- NOTE | 2020-01-09 18:16 | NUR ---
ALERT AND ORIENTED, SITTING UP ON THE SIDE OF THE BED. NO C/O PAIN. NO S/S OF ACUTE DISTRESS NOTED. DENIES ANY NEEDS AT THIS TIME. CALL LIGHT IN REACH. WILL CONTINUE TO MONITOR.
[2020-01-09 20:00] VITALS: BP 141/45
--- NOTE | 2020-01-09 20:00 | NUR ---
ALERT SITTING UP ON SIDE OF BED, DENIES PAIN STATES SOB WITH EXERTION, O2 IN USE N/C, SEE SHIFT ASSESSMENT, CALL LIGHT IN REACH
[2020-01-10 04:40] VITALS: BP 112/56
[2020-01-10 06:29] LABS: BASOPHILS 0.3 % (0-2); EOSINOPHILS 7.8 % (0-7); HEMATOCRIT 28.3 % (42.0-54.0); HEMOGLOBIN 7.9 g/dL (13.5-17.5); IMMATURE GRANULOCYTES 0.3 % (0-5); LYMPHOCYTES 8.4 % (15-50); MCH 20.4 pg (26.0-34.0); MCHC 27.9 g/dL (31.0-37.0); MCV 72.9 fL (80.0-100.0); MEAN PLATELET VOLUME 8.7 fL (7.4-10.4); NEUTROPHILS 71.2 % (40-80); PLATELET COUNT 311 10x3/uL (130-400); RBC 3.88 10x6/uL (4.20-6.10); RDW 19.4 % (11.5-14.5); WBC 6.8 10x3/uL (4.8-10.8)
[2020-01-10 06:38] LABS: ANION GAP 12.6 mmol/L (8-16); CALCIUM 8.4 mg/dL (8.5-10.1); CARBON DIOXIDE 27.3 mmol/L (21.0-32.0); CREATININE - SERUM 1.3 mg/dL (0.6-1.3); POTASSIUM - SERUM 3.9 mmol/L (3.5-5.1)
--- NOTE | 2020-01-10 07:25 | NUR ---
REC'D IN WALKING ROUNDS WITH NO DISTRESS NOTED. RESP EVEN AND UNLABORED. CAN EXPRESS NEEDS AND WANTS. NO C/O NOTED OR VOICED. DENIES ANY PAIN OR DISCOMFORT AT THIS TIME. ASSESSMENT COMPLETED. C/L IN REACH AT BEDSIDE.
[2020-01-10 09:00] VITALS: BP 132/66
[2020-01-10 12:41] VITALS: BP 156/64
--- NOTE | 2020-01-10 12:51 | NUR ---
LYING IN BED,WITHOUT NEEDS.CALL LIGHT IN REACH
[2020-01-10 19:53] VITALS: BP 101/50
[2020-01-11 00:56] VITALS: BP 127/46
--- NOTE | 2020-01-11 01:05 | NUR ---
ASSESSED AT THE BEGINNING OF THE SHIFT. PT IS ALERT AND ORIENTED, ABLE TO VERBALIZE NEEDS. HE HAD A NON REBREATHER IN PLACE AND WAS COMPLAINING ABOUT HOW IT MADE HIM FEEL AND HE DID NOT THINK IT WAS GIVING HIM ENOUGH OXYGEN. IT WAS CHECKED AND HIS O2 SAT WAS 100%. HE WAS STILL NOT HAPPY AND CALLED THE NURSE BACK IN TO COMPLAIN ABOUT THE NON REBREATHER MULTIPLE TIMES. ONE TIME RESP TECH CAME AND MADE THE AIR SOUND LOUDER AND HE WAS OK FOR A LITTLE WHILE. AFTER THAT HE WAS DEMANDING TO PUT HIS CPAP ON SO HE COULD SLEEP. DR JESUS WAS CALLED AND AN ORDER WAS RECEIVED FOR 0.5 XANAX WHICH HE WAS GIVEN. HE COMPLAINED ABOUT TAKING THAT AND HAVING TO GO TO THE BATHROOM AFTER THE EFFECTS OF XANAX. IT WAS EXPLAINED TO HIM MULTIPLE TIMES THAT HE WAS RISKING A COLLAPED LUNG AND A CHEST TUBE. HE DID NOT CARE. HE KEPT IT ON UNTIL 1 AM AND THEN DEMANDED THAT HE BE ASSISTED WITH PUTTING ON HIS C-PAP. AT THIS TIME WE HAD NO OPTION BUT TO ASSIST HIM.
[2020-01-11 04:01] VITALS: BP 146/58
[2020-01-11 06:09] LABS: BASOPHILS 0.6 % (0-2); EOSINOPHILS 9.5 % (0-7); HEMATOCRIT 26.9 % (42.0-54.0); IMMATURE GRANULOCYTES 0.5 % (0-5); MCH 20.3 pg (26.0-34.0); MCHC 27.9 g/dL (31.0-37.0); MCV 72.9 fL (80.0-100.0); MEAN PLATELET VOLUME 8.6 fL (7.4-10.4); MONOCYTES 11.8 % (2-11); NEUTROPHILS 67.6 % (40-80); PLATELET COUNT 308 10x3/uL (130-400); RBC 3.69 10x6/uL (4.20-6.10); RDW 19.6 % (11.5-14.5); WBC 6.2 10x3/uL (4.8-10.8)
[2020-01-11 06:15] LABS: HEMOGLOBIN 7.5 g/dL (13.5-17.5)
[2020-01-11 06:20] LABS: ANION GAP 10.6 mmol/L (8-16); CALCIUM 8.3 mg/dL (8.5-10.1); CREATININE - SERUM 1.5 mg/dL (0.6-1.3); POTASSIUM - SERUM 3.6 mmol/L (3.5-5.1)
--- NOTE | 2020-01-11 07:10 | NUR ---
REC'D IN BED AWAKE AND ALERT.HAS CPAP IN USE. RESP EVEN AND UNLABORED WITH NO DISTRESS NOTED. CAN EXPRESS NEEDS AND WANTS. ASSESSMENT COMPLETED. C/L IN REACH AT BEDSIDE.
[2020-01-11 08:12] VITALS: BP 137/34
--- NOTE | 2020-01-11 08:59 | NUR ---
I have reviewed this patient and I concur with the Shift Assessment completed by the Licensed Practical Nurse today this shift.
--- NOTE | 2020-01-11 11:23 | NUR ---
CALL WAS PLACED TO DR. WILLOUGHBY ABOUT PT H/H BEING 7.5. REC'D NEW ORDERS TO INFUSE ONE UNIT OF PRBC AT THIS TIME. PT MADE AWARE OF NEW ORDERS AND AGREES WITH POC. C/L IN REACH AT BEDSIDE.
[2020-01-11 11:38] VITALS: BP 150/55
[2020-01-11 16:00] VITALS: BP 155/68
[2020-01-11 20:00] VITALS: BP 128/59
--- NOTE | 2020-01-11 21:43 | NUR ---
AWAKE,ALERT.SITTING ON SIDE OF BED. NO COMPLAITNS VOICED. IV TO RIGHT HAND INTACT WITHOUT REDNESS OR EDEMA NOTED. CL IN REACH
[2020-01-12] VITALS: BP 134/45
--- NOTE | 2020-01-12 00:31 | NUR ---
I have reviewed this patient and I concur with the Shift Assessment completed by the Licensed Practical Nurse today this shift.
[2020-01-12 04:00] VITALS: BP 135/65
[2020-01-12 06:52] LABS: BASOPHILS 0.1 % (0-2); EOSINOPHILS 0 % (0-7); HEMATOCRIT 28.6 % (42.0-54.0); HEMOGLOBIN 8.1 g/dL (13.5-17.5); IMMATURE GRANULOCYTES 0.3 % (0-5); LYMPHOCYTES 7.1 % (15-50); MCH 20.7 pg (26.0-34.0); MCHC 28.3 g/dL (31.0-37.0); MCV 73.1 fL (80.0-100.0); MEAN PLATELET VOLUME 8.8 fL (7.4-10.4); MONOCYTES 8.6 % (2-11); NEUTROPHILS 83.9 % (40-80); PLATELET COUNT 319 10x3/uL (130-400); RBC 3.91 10x6/uL (4.20-6.10); RDW 19.8 % (11.5-14.5); WBC 6.9 10x3/uL (4.8-10.8)
[2020-01-12 07:09] LABS: ANION GAP 13.1 mmol/L (8-16); CALCIUM 8.5 mg/dL (8.5-10.1); CARBON DIOXIDE 27.1 mmol/L (21.0-32.0); CREATININE - SERUM 1.4 mg/dL (0.6-1.3)
[2020-01-12 07:10] LABS: POTASSIUM - SERUM 4.2 mmol/L (3.5-5.1)
--- NOTE | 2020-01-12 07:27 | NUR ---
ALERT AND ORIENTED SITTING UP IN BED WATCHING TV. IV LOCATED TO RIGHT HAND CURRENTLY RCVING ABX. NO S/S OF DISTRESS, DENIES NEEDS AT THIS TIME, WILL CONT TO MONITOR.
[2020-01-12 09:00] VITALS: BP 159/68
--- NOTE | 2020-01-12 10:58 | NUR ---
FSBS 216, TREATED WITH 4 UNITS.
[2020-01-12 15:17] VITALS: BP 144/73
--- NOTE | 2020-01-12 15:22 | MORECARE ---
CASE MANAGEMENT DISCHARGE SUMMARY PATIENT: HUMBLE QUEEN UNIT: [id number] ADM DATE: 01/08/20 AGE: 79 : 42 SEX: M ROOM/BED: D.2234 AUTHOR: GRACE MCDONALD PHYSICIAN: REFERRING PHYSICIAN: ALBERTINA DAILY MD DATE OF SERVICE: 01/12/20 Discharge Plan Patient Name: HUMBLE QUEEN Facility: [facility]:[place] : 1940 Planned Disposition: Home Anticipated Discharge Date: 01/13/20 Discharge Date: Expected LOS: 5 Initial Reviewer: [email or web address] Initial Review Date: 01/08/2020 Generated: 01/12/20 4:22 pm Comments DCP- Discharge Planning Updated by [email or web address]: Arianne John on 01/12/20 1:[address] Plans: DC Home with portable O2 @3L. O2 base and Nebulizer will be delivered to patient's home 01/12. No other needs at this time. CM met with patient for DC needs. He is in agreement with the assessment. A/O. PCP: Dr. Daily. Pharmacy: [address] Lives independently with his , Odalys #[phone]. [facility] [place] Patient: C-PAP, Glucometer, Walker. Gives permission to speak with his , Odalys. Denies need for HHS, Rehab, SNF. Denies being hospitalized in past 30 days. Patient's will drive him home. He plans to DC 4/20 AM. Contacted Tyler with [facility] Patient [phone], provided required information, faxed requested information to [phone]. The portable O2 will be delivered to this patient 4/20 AM. External Providers External Provider: [facility]-[place] [place] Patient-[facility] Contact Date: Service Request Date: Service Type: Resolution: Reviewer: Comments: Patient Name: HUMBLE QUEEN Page [phone] at 1522 All edits/amendments must be made on the electronic document DICTATION DATE: 01/12/20 1521 DRAFTER GEOPHYSICAL: COLT 01/12/20 1521 RPT#: [id number] DC DATE: STATUS: ADM IN [facility] [address] [place] [address] END OF REPORT
--- NOTE | 2020-01-12 15:29 | MORECARE ---
CASE MANAGEMENT DISCHARGE SUMMARY PATIENT: HUMBLE QUEEN UNIT: [id number] ADM DATE: 01/08/20 AGE: 79 : 42 SEX: M ROOM/BED: D.2234 AUTHOR: HARRY,DOC PHYSICIAN: REFERRING PHYSICIAN: ALBERTINA DAILY MD DATE OF SERVICE: 01/12/20 Discharge Plan Patient Name: HUMBLE QUEEN Facility: [facility]:[place] : 1940 Planned Disposition: Home Anticipated Discharge Date: 01/13/20 Discharge Date: Expected LOS: 5 Initial Reviewer: [email or web address] Initial Review Date: 01/08/2020 Generated: 01/12/20 4:28 pm Comments DCP- Discharge Planning Updated by [id number]: Arianne John on 01/12/20 1:[address] Plans: DC Home with portable O2 @3L. O2 base and Nebulizer will be delivered to patient's home 01/12. No other needs at this time. CM met with patient for DC needs. He is in agreement with the assessment. A/O. PCP: Dr. Daily. [facility] Lives independently with his , Odalys #[phone]. DME [facility] [place] Patient: C-PAP, Glucometer, Walker. Gives permission to speak with his , Odalys. Denies need for HHS, Rehab, SNF. Denies being hospitalized in past 30 days. Patient's will drive him home. He plans to DC 4/20 AM. Contacted Tyler with [facility] Patient @[phone], provided required information, faxed requested information to [phone]. The portable O2 will be delivered to this patient 4/20 AM. DCPIA - Discharge Planning Initial Assessment Updated by [id number]: Arianne John on 01/12/20 3:26 pm * Is the patient Alert and Oriented? Yes * How many steps to enter\exit or inside your home? * PCP Dr. Daily * [facility] * Preadmission Environment Home with Family * ADLs Independent * Equipment CPAP Glucometer Walker * Other Equipment NA * List name and contact numbers for known caregivers / representatives who currently or will assist patient after discharge: Odalys Queen () [phone] * Verbal permission to speak to the caregivers and representatives has been obtained from the patient. Yes * Community resources currently utilized None * Please name any agencies selected above. [facility] Patient * Additional services required to return to the preadmission environment? Yes * Can the patient safely return to the preadmission environment? Yes * Has this patient been hospitalized within the prior 30 days at any hospital? Yes Last DP export: 01/12/20 2:22 p Patient Name: HUMBLE QUEEN Page 53349 at 1529 All edits/amendments must be made on the electronic document DICTATION DATE: 01/12/201527 REMELT PAN TANK OPERATOR: COLT 01/12/201527 RPT#: [id number] DC DATE: STATUS: ADM IN [facility] [address] [place] [address] END OF REPORT
--- NOTE | 2020-01-12 16:00 | MORECARE ---
CASE MANAGEMENT DISCHARGE SUMMARY PATIENT: HUMBLE QUEEN UNIT: [id number] ADM DATE: 01/08/20 AGE: 79 : 42 SEX: M ROOM/BED: D.2234 AUTHOR: HARRY,DOC PHYSICIAN: REFERRING PHYSICIAN: ALBERTINA DAILY MD DATE OF SERVICE: 01/12/20 Discharge Plan Patient Name: HUMBLE QUEEN Facility: [facility]:[place] : 1940 Planned Disposition: Home Anticipated Discharge Date: 01/13/20 Discharge Date: Expected LOS: 5 Initial Reviewer: [email or web address] Initial Review Date: 01/08/2020 Generated: 01/12/20 4:59 pm Comments DCP- Discharge Planning Updated by [email or web address]: Arianne John on 01/12/20 2:[address] Plans: DC Home with portable O2 @3L. O2 base and Nebulizer will be delivered to patient's home 01/12. No other needs at this time. DC IMM to , Odalys via telephone. Original via Certified mail. CM met with patient for DC needs. He is in agreement with the assessment. A/O. PCP: Dr. Daily. Pharmacy: [facility]. Lives independently with his , Odalys #[phone]. DME [facility] [place] Patient: C-PAP, Glucometer, Walker. Gives permission to speak with his , Odalys. Denies need for HHS, Rehab, SNF. Denies being hospitalized in past 30 days. Patient's will drive him home. He plans to DC 4/20 AM. Contacted Tyler with [facility] [place] Patient @[phone], provided required information, faxed requested information to [phone]. The portable O2 will be delivered to this patient 4/20 AM. DCPIA - Discharge Planning Initial Assessment Updated by [email or web address]: Arianne John on 01/12/20 3:26 pm * Is the patient Alert and Oriented? Yes * How many steps to enter\exit or inside your home? * PCP Dr. Daily * Pharmacy [facility] * Preadmission Environment Home with Family * ADLs Independent * Equipment CPAP Glucometer Walker * Other Equipment NA * List name and contact numbers for known caregivers / representatives who currently or will assist patient after discharge: Odalys Queen () [phone] * Verbal permission to speak to the caregivers and representatives has been obtained from the patient. Yes * Community resources currently utilized None * Please name any agencies selected above. [facility] Patient * Additional services required to return to the preadmission environment? Yes * Can the patient safely return to the preadmission environment? Yes * Has this patient been hospitalized within the prior 30 days at any hospital? Yes Coverage Notice Reviewer: [email or web address] David John Notice Issued Date-Time: 01/12/2020 15:51 Notice Type: IM Discharge Notice Notice Delivered To: Family Member Relationship to Patient: Spouse Electrologist Name: Odalys Queen Delivery Method: MAIL - Mail Nevaeh Days: Prior Verbal Notification: Yes Recipient Understood Notice: Recipient Signature: Med Rec Note Co-signed by Attending: Coverage Notice Comment: Telephone permission per Odalys Queen (). Original will be mailed by certified mail. Reviewer: [email or web address] David John Notice Issued Date-Time: 01/12/2020 15:51 Notice Type: Patient Choice Letter Notice Delivered To: Family Member Relationship to Patient: Spouse Electrologist Name: Odalys Queen Delivery Method: CERT - Certified Mail Nevaeh Days: Prior Verbal Notification: Yes Recipient Understood Notice: Yes Recipient Signature: Med Rec Note Co-signed by Attending: Coverage Notice Comment: Telephone permission for DC IMM by Odalys DP export: 01/12/20 2:29 p Patient Name: HUMBLE QUEEN Page [phone] at 1600 All edits/amendments must be made on the electronic document DICTATION DATE: 01/12/20 1559 LOAD DISPATCHER: DM 01/12/20 1559 RPT#: [id number] DC DATE: STATUS: ADM IN [facility] [address] [place] [address] END OF REPORT
[2020-01-12 16:26] VITALS: BP 139/70
[2020-01-12 21:14] VITALS: BP 132/55
[2020-01-13 01:01] VITALS: BP 122/57
[2020-01-13 04:00] VITALS: BP 124/54
[2020-01-13 05:32] LABS: BASOPHILS 0.4 % (0-2); EOSINOPHILS 3.3 % (0-7); HEMATOCRIT 30.4 % (42.0-54.0); HEMOGLOBIN 8.6 g/dL (13.5-17.5); IMMATURE GRANULOCYTES 0.4 % (0-5); LYMPHOCYTES 5.7 % (15-50); MCHC 28.3 g/dL (31.0-37.0); MCV 74.3 fL (80.0-100.0); MEAN PLATELET VOLUME 8.7 fL (7.4-10.4); MONOCYTES 9.3 % (2-11); NEUTROPHILS 80.9 % (40-80); PLATELET COUNT 307 10x3/uL (130-400); RBC 4.09 10x6/uL (4.20-6.10); RDW 20.3 % (11.5-14.5)
[2020-01-13 05:50] LABS: ANION GAP 13.5 mmol/L (8-16); CALCIUM 8.5 mg/dL (8.5-10.1); CARBON DIOXIDE 28.3 mmol/L (21.0-32.0); CREATININE - SERUM 1.5 mg/dL (0.6-1.3); POTASSIUM - SERUM 3.8 mmol/L (3.5-5.1)
--- NOTE | 2020-01-13 07:11 | HP ---
PATIENT: HUMBLE QUEEN MEDICAL RECORD: [id number] ACCOUNT: [id number] LOCATION:D.MS [id number] : 44 ADMISSION DATE: 01/08/20 PCP: ALBERTINA DAILY HISTORY AND PHYSICAL EXAMINATION ADMITTING: Albertina Daily MD REASON FOR ADMISSION: Increasing exertional shortness of breath and chest tightness. HISTORY OF PRESENT ILLNESS: The patient is a 79-year-old male with history of chronic anemia, requiring IV Imferon weekly per Dr. Marlee Martinez at the [facility]. The patient was in the hospital approximately a week ago for some mild shortness of breath and a pleural effusion and was diuresed and sent home. Dr. Martinez called me this afternoon stating that he was in for his iron, his hemoglobin was down to 7.2 and he was more dyspneic with a sat of 90-88%. She had an x-ray there, showed a pleural effusion on the right, which was new. For this reason, she sent him for a blood at [place], but he has some chest discomfort while walking to the bathroom in the outpatient facility, was transferred to the ED. He has had no recent exertional chest pain. He has seen Dr. Dean in the past, has chronic AFib with a pacemaker, had recent interrogation, and history of coronary artery disease post-PTCA. He denies having any recent cough, fever, sputum production. Says, he just has not felt well for some time. PAST SURGICAL HISTORY: As above including anemia of gastrointestinal blood loss and AVMs with negative workup at [facility], hypertension, sick sinus syndrome with pacemaker, chronic atrial fibrillation, history of remote stroke, AODM type 2 with morbid obesity, history of cataracts, history of pneumonia, SANDRA on CPAP, chronic back pain, osteoarthritis, history of cancer of the prostate, CAD post-PTCA, history of gout, gastric polyp per EGD. He had a recent echo and results I do not have. PAST SURGICAL HISTORY: Bilateral cataract surgery, tonsillectomy and adenoidectomy, prostatectomy, left total knee replacement, right partial knee replacement, right retinal repair, colonoscopy, EGD, pacemaker placement and PTCA. ALLERGIES: LATEX, CODEINE AND MORPHINE. FAMILY HISTORY: Parents are from heart disease and cancer. One sibling had cancer as well. SOCIAL HISTORY: He is a nonsmoker lifelong. HOME MEDICATIONS: Are Basaglar 80 units at bedtime, Protonix 40 mg a day, Bumex 2 mg b.i.d., spironolactone 25 mg a day, digoxin 0.125 mg p.o. at noon daily, metoprolol tartrate 50 mg b.i.d., metformin ER 500 mg with breakfast, colchicine 0.6 p.r.n. gout, allopurinol 100 mg at bedtime, aspirin 81 mg daily. REVIEW OF SYSTEMS: GENERAL: Chronic fatigue. No recent fever. HEENT: No recent new visual change, sinus congestion, or sore throat. RESPIRATORY: He has had increasing dyspnea on exertion. No cough, sputum production or hemoptysis. HISTORY AND PHYSICAL [id number] HUMBLE QUEEN CARDIAC: He had exertional dyspnea with tightness in his chest in the outpatient today. Said, he intermittently has chest pain, but Dr. Dean felt this was not angina. He has chronic edema in his legs, no recent increase, no palpitations. GASTROINTESTINAL: No nausea, vomiting, change in stools or blood per rectum. GENITOURINARY: Has nocturia once nightly. ENDOCRINE: Denies polyuria, polydipsia, heat or cold intolerance. NEUROLOGIC: Remote history of stroke without deficits. Denies headache, visual changes or marked memory loss. MUSCULOSKELETAL: Chronic back pain and knee pain. PSYCHIATRIC: Denies depressed mood. PHYSICAL EXAMINATION: GENERAL: Alert male at this time, in no acute distress. Heart rate is 100 and regular, blood pressure 130/80, he is afebrile, sats 90% on room air. HEENT: Eyes are clear with cataract implants noted. Oropharynx unremarkable. NECK: Supple. CHEST: Distant breath sounds without wheeze or rales. HEART: Regular rate without gallop. ABDOMEN: Morbidly obese, soft, nontender. GENITOURINARY: Deferred. EXTREMITIES: 3+ bipedal edema from the knees to the feet. NEUROLOGICAL: Oriented to person, place, and time. Cranial nerves are intact. Gait was not tested. No obvious motor deficits are appreciated. LABORATORY AND DIAGNOSTIC DATA: His most recent A1c in the office was 9.3, creatinine is 1.4. His chest x-ray shows mild basilar congestive changes interpreted by Dr. Rush as possible pneumonia versus failure. His white count is normal. Cardiac enzymes are pending. Hemoglobin 7.2. ASSESSMENT: Ilicb-cy-qtoiekv iron-deficiency anemia, symptomatic; dyspnea on exertion, probable demand ischemia from anemia; history of coronary artery disease; atrial fib with increased ventricular response; morbid obesity; sick sinus syndrome with pacemaker; diabetes type 2. PLAN: The patient will be admitted as Dr. Rush is concerned about possible pneumonia. He has already cultured the patient, placed him on Rocephin, will receive 2 units of packed cells followed by Lasix. We will admit to observation overnight and reassess in the a.m. Serial cardiac enzymes. TRANSINT:[id number] Voice Confirmation ID: [id number] DOCUMENT ID: [id number] RONALD WISE MD at 0711 CC: [id number] DICTATION DATE: 01/08/201653 ANALYSIS INTERNSHIP: 01/08/20 1809 ADM IN [facility] [address] [id number]
[2020-01-13 08:25] VITALS: BP 141/64
[2020-01-13] MEDS ORDERED: IPRAT-ALBUT 0.5-3 ML INH (08:38)
--- NOTE | 2020-01-13 09:16 | MORECARE ---
CASE MANAGEMENT DISCHARGE SUMMARY PATIENT: HUMBLE QUEEN UNIT: [id number] ADM DATE: 01/08/20 AGE: 79 : 42 SEX: M ROOM/BED: D.2234 AUTHOR: HARRY,DOC PHYSICIAN: REFERRING PHYSICIAN: ALBERTINA DAILY MD DATE OF SERVICE: 01/13/20 Discharge Plan Patient Name: HUMBLE QUEEN Facility: [facility]:[place] : 1940 Planned Disposition: Home Anticipated Discharge Date: 01/13/20 Discharge Date: Expected LOS: 5 Initial Reviewer: [email or web address] Initial Review Date: 01/08/2020 Generated: 01/13/20 10:15 am Comments DCP- Discharge Planning Updated by [email or web address]: Arianne John on 01/13/20 8:[address] Faxed additional information to [facility] Patient for delivery of portable O2. DCP- Discharge Planning Updated by [id number]: Arianne John on 01/12/20 2:[address] Plans: DC Home with portable O2 @3L. O2 base and Nebulizer will be delivered to patient's home 01/12. No other needs at this time. DC IMM to , Odalys via telephone. Original via Certified mail. CM met with patient for DC needs. He is in agreement with the assessment. A/O. PCP: Dr. Daily. Pharmacy: [address] Lives independently with his , Odalys #[phone]. DME [facility] Patient: C-PAP, Glucometer, Walker. Gives permission to speak with his , Odalys. Denies need for HHS, Rehab, SNF. Denies being hospitalized in past 30 days. Patient's will drive him home. He plans to DC 4 AM. Contacted Tyler with [facility] Patient @[phone], provided required information, faxed requested information to [phone]. The portable O2 will be delivered to this patient 4 AM. DCPIA - Discharge Planning Initial Assessment Updated by [id number]: Arianne John on 01/12/20 3:26 pm * Is the patient Alert and Oriented? Yes * How many steps to enter\exit or inside your home? * PCP Dr. Daily * Pharmacy [facility] [address] * Preadmission Environment Home with Family * ADLs Independent * Equipment CPAP Glucometer Walker * Other Equipment NA * List name and contact numbers for known caregivers / representatives who currently or will assist patient after discharge: Odalys Queen () [phone] * Verbal permission to speak to the caregivers and representatives has been obtained from the patient. Yes * Community resources currently utilized None * Please name any agencies selected above. [facility] * Additional services required to return to the preadmission environment? Yes * Can the patient safely return to the preadmission environment? Yes * Has this patient been hospitalized within the prior 30 days at any hospital? Yes Coverage Notice Reviewer: [id number] David John Notice Issued Date-Time: 01/12/2020 15:51 Notice Type: IM Discharge Notice Notice Delivered To: Family Member Relationship to Patient: Spouse Porcelain Mixer Name: Odalys Queen Delivery Method: MAIL - Mail Nevaeh Days: Prior Verbal Notification: Yes Recipient Understood Notice: Recipient Signature: Med Rec Note Co-signed by Attending: Coverage Notice Comment: Telephone permission per Odalys Queen (). Original will be mailed by certified mail. Reviewer: [email or web address] David John Notice Issued Date-Time: 01/12/2020 15:51 Notice Type: Patient Choice Letter Notice Delivered To: Family Member Relationship to Patient: Spouse Porcelain Mixer Name: Odalys Queen Delivery Method: CERT - Certified Mail Nevaeh Days: Prior Verbal Notification: Yes Recipient Understood Notice: Yes Recipient Signature: Med Rec Note Co-signed by Attending: Coverage Notice Comment: Telephone permission for DC IMM by Odalys DP export: 01/12/20 3:00 p Patient Name: HUMBLE QUEEN Page [phone] at 0916 All edits/amendments must be made on the electronic document DICTATION DATE: 01/13/20914 PROJECT ENGINEER: COLT 01/13/20914 RPT#: [id number] DC DATE: STATUS: ADM IN [facility] [address] [place] [address] END OF REPORT
--- NOTE | 2020-01-13 12:00 | NUR ---
PATIENT BACK TO ROOM WITH CT INTACT. DRAINED 500 IN RADIOLOGY AND CANISTER FULL NOW. CHANGED CANISTER AT THIS TIME. IV INTACT. CALL LIGHT WITHIN REACH.
[2020-01-13 12:59] VITALS: Ht 188 cm; Wt 155.9 kg
[2020-01-13 13:00] VITALS: BP 114/57
[2020-01-13 15:39] LABS: PROTEIN - BODY FLUID 4.1 G/DL
[2020-01-13 17:03] VITALS: BP 125/50
--- NOTE | 2020-01-13 18:45 | NUR ---
PATIENT IN BED WITH IV AND CT INTACT. NO COMPLAINTS OR SIGNS OF DISTRESS. CALL LIGHT WITHIN REACH.
[2020-01-13 20:00] VITALS: BP 123/53
--- NOTE | 2020-01-13 20:02 | NUR ---
PATIENT LYING IN BED. PATIENT ALERT AND ORIENTED. NO ACUTE DISTRESS NOTED AT THIS TIME. CHEST TUB TO RIGHT CHEST. 3L NC. R HAND IV, SL, NO REDNESS OR SWELLING NOTED AT THIS TIME. PATIENT STATES HE WOULD LIKE SOME WATER, BUT HAS NOT FURTHER NEEDS AT THIS TIME. BED IN LOW POSITION, RAILS X2. CALL LIGHT AND BEDSIDE TABLE WITHIN REACH. WILL CONTINUE TO MONITOR.
[2020-01-14] VITALS: BP 119/43
[2020-01-14 04:00] VITALS: BP 118/45
[2020-01-14 05:39] LABS: ANION GAP 12.7 mmol/L (8-16); BASOPHILS 0.6 % (0-2); CREATININE - SERUM 1.3 mg/dL (0.6-1.3); HEMATOCRIT 28.3 % (42.0-54.0); HEMOGLOBIN 7.9 g/dL (13.5-17.5); IMMATURE GRANULOCYTES 0.6 % (0-5); LYMPHOCYTES 7.6 % (15-50); MCH 20.6 pg (26.0-34.0); MCHC 27.9 g/dL (31.0-37.0); MCV 73.7 fL (80.0-100.0); MEAN PLATELET VOLUME 8.7 fL (7.4-10.4); MONOCYTES 11.4 % (2-11); NEUTROPHILS 74.8 % (40-80); PLATELET COUNT 307 10x3/uL (130-400); POTASSIUM - SERUM 3.7 mmol/L (3.5-5.1); RBC 3.84 10x6/uL (4.20-6.10); RDW 20.8 % (11.5-14.5); WBC 7.8 10x3/uL (4.8-10.8)
--- NOTE | 2020-01-14 07:25 | NUR ---
RECEIVED PT FROM BLUEPRINT DUPLICATOR. PT HAD A CHEST TUBE PLACED YESTERDAY, OF STATE OF SHIFT DRAINAGE IS AT 550. PT IS ALERT AND ORIENTED X4. PT RESTING COMFORTABLY IN BED UPON ENTERING. DENIES ANY NEEDS. BED IN LOWEST POSITION, BED RAILS X2, CALL LIGHT WITHIN REACH. WILL CONTINUE TO MONITOR.
[2020-01-14 08:27] VITALS: BP 119/45
--- NOTE | 2020-01-14 08:49 | NUR ---
ADMINISTERED MORNING MEDICATION AT THIS TIME. HELD LOPRESSOR AND ALDACTONE DUE TO BLOOD PRESSURE BEING 119/43. PT REPORTS HIS BP HAS BEEN RUNNING LOW. RESTING COMFORTABLY IN BED. ATE BREAKFAST. DENIES ANY NEEDS AT THIS TIME. BED IN LOWEST POSITION, BED RAILS X2, CALL LIGHT WITHIN REACH. WILL CONTINUE TO MONITOR.
--- NOTE | 2020-01-14 11:34 | NUR ---
ADMINISTERED MEDICATION AND ASSESSED BLOOD SUGAR, 178. PT REFUED THE 2 UNITS OF INSULIN SUGGESTED BY THE SLIDING SCALE. DENIES ANY NEEDS. RESTING COMFORTABLY IN BED WITH CPAP ON. WILL CONTINUE TO MONITOR.
--- NOTE | 2020-01-14 12:29 | NUR ---
ASSESSED APICAL PULSE TO ADMINISTERED DIGOXIN, APICAL OF 72. WITHIN LIMITS. UPRIGHT IN BEDSIDE EATING LUNCH. DENIES ANY NEEDS AT THIS TIME. WILL CONTINUE TO MONITOR.
--- NOTE | 2020-01-14 14:13 | NUR ---
ADMINISTERED IV BUMEX, NO COMPLAINTS. PT IS STILL RESTING IN BED WITH CPAP ON, BREATHING EVEN AND UNLABORED, NO S/S OF DISTRESS NOTED AT THIS TIME. WILL CONTINUE TO MONITOR.
--- NOTE | 2020-01-14 16:30 | NUR ---
HUNG IV MEDICATION AND ASSESSED SUGAR, 224. REQUIRED 4 UNITS OF INSULING PER SLIDING SCALE. PT IS RESTING COMFORTABLY IN BED. BED IN LOWEST POSITION, BED RAILS X2, CALL LIGHT WITHIN REACH. WILL CONTINUE TO MONITOR.
[2020-01-14 16:48] VITALS: BP 118/54
--- NOTE | 2020-01-14 17:50 | NUR ---
PT RESTING COMFORTABLY IN BED EATING DINNER. DENIES ANY NEEDS AT THIS TIME. BED IN LOWEST POSITION, BED RAILS X2, CALL LIGHT WTIHIN REACH. WILL CONTINUE TO MONITOR.
--- NOTE | 2020-01-14 18:32 | NUR ---
ASSISTED PT IN SITTING UP THE BEDSIDE TO USE URINAL. REPOSITIONED IN BED COMFORTABLY. DENIES ANY NEEDS. WILL CONTINUE TO MONITOR.
--- NOTE | 2020-01-14 20:00 | NUR ---
ALERT RESTING IN BED C/O HEADACHE REQUESTING TYLENOL, CHEST TUBE IN PLACE TO RIGHT SIDE SMALL AMOUT DRAINAGE NOTED IN TUBING, DRESSING INTACT, SEE SHIFT ASSESSMENT, CALL LIGHT IN REACH
[2020-01-14 21:44] VITALS: BP 105/42
[2020-01-15 00:50] VITALS: BP 132/55
[2020-01-15 06:55] VITALS: BP 131/49
[2020-01-15 07:33] LABS: BASOPHILS 0.5 % (0-2); EOSINOPHILS 4.4 % (0-7); HEMATOCRIT 29.1 % (42.0-54.0); HEMOGLOBIN 8.2 g/dL (13.5-17.5); IMMATURE GRANULOCYTES 0.5 % (0-5); LYMPHOCYTES 8.6 % (15-50); MCH 20.8 pg (26.0-34.0); MCHC 28.2 g/dL (31.0-37.0); MCV 73.7 fL (80.0-100.0); MEAN PLATELET VOLUME 8.6 fL (7.4-10.4); MONOCYTES 10.8 % (2-11); NEUTROPHILS 75.2 % (40-80); PLATELET COUNT 287 10x3/uL (130-400); RBC 3.95 10x6/uL (4.20-6.10); WBC 8.7 10x3/uL (4.8-10.8)
[2020-01-15 07:48] LABS: ANION GAP 12.9 mmol/L (8-16); CARBON DIOXIDE 28.1 mmol/L (21.0-32.0); CREATININE - SERUM 1.2 mg/dL (0.6-1.3)
[2020-01-15 09:21] VITALS: BP 142/45
--- NOTE | 2020-01-15 11:00 | NUR ---
RESTING IN BED, NO DISTRESS NOTED, O2 PER NC, IV INFUSING, CHEST TUBE TO RIGHT SIDE, NO DRAINAGE ON DRESSING, MINIMAL OUT PUT OVERNIGHT, CONT TO MONITOR PAIN
--- NOTE | 2020-01-15 13:27 | NUR ---
Nutrition follow-up: Diet: Consistent CHO PO Intake 100% of all meals Labs reviewed Wt: 324# PO intake good at this time RDN following.
[2020-01-15 17:06] VITALS: BP 141/52
[2020-01-15 20:00] VITALS: BP 127/40
--- NOTE | 2020-01-15 20:00 | NUR ---
SITTING UP ON SIDE OF BED. A&O X 4. DENIES ANY PAIN. CHEST TUBE TO RIGHT SIDE PRESENT, DRESSING CDI. REPORTS HE HAS BEEN USING IS AND IT HAS BEEN MORE BENEFICIAL THAN BREATHING TXs. PT CONSISTENTLY REACHES 1500. NO NEEDS VOICED. WILL CONTINUE TO MONITOR.
--- NOTE | 2020-01-16 01:33 | NUR ---
I have reviewed this patient and I concur with the Shift Assessment completed by the Licensed Practical Nurse today this shift.
[2020-01-16 04:00] VITALS: BP 127/51
[2020-01-16 05:36] LABS: BASOPHILS 0.5 % (0-2); EOSINOPHILS 8.5 % (0-7); HEMATOCRIT 27.6 % (42.0-54.0); HEMOGLOBIN 7.9 g/dL (13.5-17.5); IMMATURE GRANULOCYTES 0.3 % (0-5); LYMPHOCYTES 6.4 % (15-50); MCH 20.9 pg (26.0-34.0); MCHC 28.6 g/dL (31.0-37.0); MEAN PLATELET VOLUME 8.9 fL (7.4-10.4); MONOCYTES 11.7 % (2-11); NEUTROPHILS 72.6 % (40-80); PLATELET COUNT 287 10x3/uL (130-400); RBC 3.78 10x6/uL (4.20-6.10); WBC 6.6 10x3/uL (4.8-10.8)
[2020-01-16 05:43] LABS: ANION GAP 12.8 mmol/L (8-16); CREATININE - SERUM 1.2 mg/dL (0.6-1.3); POTASSIUM - SERUM 3.8 mmol/L (3.5-5.1)
[2020-01-16 08:48] VITALS: BP 120/48
--- NOTE | 2020-01-16 09:54 | NUR ---
ALERT,TAKING, CHEST TUBE TO RIGHT SIDE, TO 20 OF SUCTION. DENIES ANY NEEDS OR PAIN.
[2020-01-16 13:01] VITALS: BP 131/625
[2020-01-16 16:46] VITALS: BP 125/43
[2020-01-16 20:00] VITALS: BP 137/60
[2020-01-17] VITALS: BP 142/54
[2020-01-17 04:00] VITALS: BP 103/40
--- NOTE | 2020-01-17 06:55 | NUR ---
RESITED IV TO LEFT HAD PATENT REFUSED TO LET STAFF RESITE ANYWHERE BUT THAT HAND. 22GAGE IN PLACE AND PATEN.
[2020-01-17 09:45] VITALS: BP 104/53
--- NOTE | 2020-01-17 10:01 | NUR ---
HE IS SETTING UP ON THE SIDE OF THE BED FOR BREAKFAST. HE WALKED WITH PT, CHEST TUBE BACK TO 20 OF SUCTION AFTER HIS WALK. ONLY 10 CC OF OUTPUT FROM THE CHEST TUBE LAST SHIFT.
[2020-01-17 13:53] VITALS: BP 109/51
[2020-01-17 18:10] VITALS: BP 109/39
[2020-01-17 20:00] VITALS: BP 133/49
[2020-01-18] VITALS: BP 124/52
[2020-01-18 04:00] VITALS: BP 121/54
--- NOTE | 2020-01-18 08:00 | NUR ---
PATIENT SITTING UP ON SIDE OF BED EATING. NO CO PAIN. CL IN REACH. WOULD LIKE TO HAVE CHEST TUBE REMOVED. WCTM
[2020-01-18 08:02] VITALS: BP 125/67
[2020-01-18 09:03] LABS: BASOPHILS 0.3 % (0-2); EOSINOPHILS 6.5 % (0-7); HEMATOCRIT 30.5 % (42.0-54.0); HEMOGLOBIN 8.7 g/dL (13.5-17.5); IMMATURE GRANULOCYTES 0.4 % (0-5); LYMPHOCYTES 6.5 % (15-50); MCHC 28.5 g/dL (31.0-37.0); MCV 73.7 fL (80.0-100.0); MEAN PLATELET VOLUME 8.8 fL (7.4-10.4); MONOCYTES 8.7 % (2-11); NEUTROPHILS 77.6 % (40-80); PLATELET COUNT 302 10x3/uL (130-400); RBC 4.14 10x6/uL (4.20-6.10); RDW 21.3 % (11.5-14.5)
[2020-01-18 09:28] LABS: ANION GAP 10.2 mmol/L (8-16); CALCIUM 8.3 mg/dL (8.5-10.1); CARBON DIOXIDE 29.7 mmol/L (21.0-32.0); CREATININE - SERUM 1.4 mg/dL (0.6-1.3); POTASSIUM - SERUM 3.9 mmol/L (3.5-5.1)
--- NOTE | 2020-01-18 11:02 | NUR ---
CHEST TUBE REMOVED. DR CASANOVA STATED PATIENT COULD BE DISCHARGED FROM HIS STAND POINT. PATIENT WILL NEED A REPEAT CT SCAN IN 4 WKS TIME. NO DISCHARGE AT THIS TIME. WCTM
[2020-01-18 13:58] VITALS: BP 128/52
[2020-01-18 18:13] VITALS: BP 152/72
--- NOTE | 2020-01-18 19:00 | NUR ---
BEDSIDE REPORT RECEIVED AND CARE OF PT ASSUMED. PT LYING IN MID DYKES'S POSITION WITH CPAP ON. IV TO LEFT HAND SALINE LOCKED. TELEMETRY IN PLACE PER ORDER. WILL MONITOR FOR NEEDS.
[2020-01-18 20:00] VITALS: BP 136/48
--- NOTE | 2020-01-18 20:46 | NUR ---
HS MEDICATIONS GIVEN. FSBS 184 THIS CHECK...PT DECLINES COVERAGE WITH SLIDING SCALE...ONLY WANTS [facility] AT THIS MED PASS.
[2020-01-19] VITALS: BP 130/50
[2020-01-19 04:00] VITALS: BP 141/56
[2020-01-19 06:07] LABS: BASOPHILS 0.4 % (0-2); EOSINOPHILS 6.8 % (0-7); HEMATOCRIT 28.8 % (42.0-54.0); IMMATURE GRANULOCYTES 0.3 % (0-5); LYMPHOCYTES 16.8 % (15-50); MCH 20.4 pg (26.0-34.0); MCHC 27.8 g/dL (31.0-37.0); MCV 73.5 fL (80.0-100.0); MEAN PLATELET VOLUME 8.8 fL (7.4-10.4); MONOCYTES 13.4 % (2-11); NEUTROPHILS 62.3 % (40-80); PLATELET COUNT 341 10x3/uL (130-400); RBC 3.92 10x6/uL (4.20-6.10); RDW 21.3 % (11.5-14.5); WBC 7.1 10x3/uL (4.8-10.8)
--- NOTE | 2020-01-19 09:00 | NUR ---
ALERT AND ORIENTED X4. 02 2L N/C WITH DO DYSPNEA NOTED. PATIETN WEARING CPAP AT THIS TIME. TELEMETRY INTACT AND DENES ANY CHEST PAIN OR DISCOMFORT. UP WITH SBA AND LUNGS CTA ABDOMEN OBESE WITH BOWEL SOUNDS NOTED X4. ENCOURAGED TO USE CALL LIGHT FOR ASSSIT.
[2020-01-19 09:50] VITALS: BP 135/56
--- NOTE | 2020-01-19 11:24 | MORECARE ---
CASE MANAGEMENT DISCHARGE SUMMARY PATIENT: HUMLBE QUEEN UNIT: [id number] ADM DATE: 01/08/20 AGE: 79 : 42 SEX: M ROOM/BED: D.2234 AUTHOR: HARRY,DOC PHYSICIAN: REFERRING PHYSICIAN: ALBERTINA DAILY MD DATE OF SERVICE: 01/19/20 Discharge Plan Patient Name: HUMBLE QUEEN Facility: [facility]:[place] : 1940 Planned Disposition: Home Anticipated Discharge Date: 01/13/20 Discharge Date: Expected LOS: 5 Initial Reviewer: [email or web address] Initial Review Date: 01/08/2020 Generated: 01/19/20 12:24 pm Comments DCP- Discharge Planning Updated by [email or web address]: Iris Ortega on 01/19/20 10:[address] PATIENT WILL BE DISCHARGING HOME TODAY. IMM SERVED AND EXPLAINED. I SPOKE TO HIS SHE SAID THAT HIS PORTABLE O2 HAS BEEN DELIVERED TO THEIR HOME, AND SHE IS TO CALL WHEN HE GETS HOME AND THEY WILL DELIVER THE CONCENTRATOR. HE DID NOT HAVE A NEBULIZER AND SHE DID NOT KNOW IF THEY WERE GOING TO DELIVER THAT, I HAVE PLACED A CALL INTO [facility] PATIENT TO VERIFY. MD ORDERED HOME HEALTH, HE DID NOT THINK HE NEEDED IT, BUT SINCE MD ORDERED IT HE IS AGREEABLE. [employer] FOR [employer] AND JACOB HE WANTED WHOEVER TOOK HIS INSURANCE AND WHO IS RANKED THE HIGHEST. I HAVE SENT THE REFERRAL TO [facility]. CM WILL CONTINUE TO ASSIST NEEDED DCP- Discharge Planning Updated by [id number]: Arianne John on 01/13/20 8:[address] Faxed additional information to [facility] Patient for delivery of portable O2. DCP- Discharge Planning Updated by [email or web address]: Arianne John on 01/12/20 2:[address] Plans: DC Home with portable O2 @3L. O2 base and Nebulizer will be delivered to patient's home 01/12. No other needs at this time. DC IMM to , Odalys via telephone. Original via Certified mail. CM met with patient for DC needs. He is in agreement with the assessment. A/O. PCP: Dr. Daily. [facility]. Lives independently with his , Odalys #[phone]. DME [facility]: C-PAP, Glucometer, Walker. Gives permission to speak with his , Odalys. Denies need for HHS, Rehab, SNF. Denies being hospitalized in past 30 days. Patient's will drive him home. He plans to DC 4/20 AM. Contacted Tyler with [facility] @[phone], provided required information, faxed requested information to [phone]. The portable O2 will be delivered to this patient 01/12 AM. DCPIA - Discharge Planning Initial Assessment Updated by [id number]: Arianne John on 01/12/20 3:26 pm * Is the patient Alert and Oriented? Yes * How many steps to enter\exit or inside your home? * PCP Dr. Daily * Pharmacy [facility] [address] * Preadmission Environment Home with Family * ADLs Independent * Equipment CPAP Glucometer Walker * Other Equipment NA * List name and contact numbers for known caregivers / representatives who currently or will assist patient after discharge: Odalys Queen () [phone] * Verbal permission to speak to the caregivers and representatives has been obtained from the patient. Yes * Community resources currently utilized None * Please name any agencies selected above. [facility] * Additional services required to return to the preadmission environment? Yes * Can the patient safely return to the preadmission environment? Yes * Has this patient been hospitalized within the prior 30 days at any hospital? Yes Coverage Notice Reviewer: [id number] David John Notice Issued Date-Time: 01/12/2020 15:51 Notice Type: IM Discharge Notice Notice Delivered To: Family Member Relationship to Patient: Spouse Spanish Medical Interpreter Name: Odalys Queen Delivery Method: MAIL - Mail Nevaeh Days: Prior Verbal Notification: Yes Recipient Understood Notice: Recipient Signature: Med Rec Note Co-signed by Attending: Coverage Notice Comment: Telephone permission per Odalys Queen (). Original will be mailed by certified mail. Reviewer: [id number] David John Notice Issued Date-Time: 01/12/2020 15:51 Notice Type: Patient Choice Letter Notice Delivered To: Family Member Relationship to Patient: Spouse Spanish Medical Interpreter Name: Odalys Queen Delivery Method: CERT - Certified Mail Nevaeh Days: Prior Verbal Notification: Yes Recipient Understood Notice: Yes Recipient Signature: Med Rec Note Co-signed by Attending: Coverage Notice Comment: Telephone permission for DC IMM by Odalys Reviewer: [email or web address] David Ortega Notice Issued Date-Time: 01/19/2020 10:55 Notice Type: IM Discharge Notice Notice Delivered To: Patient Relationship to Patient: Spanish Medical Interpreter Name: Delivery Method: HAND - Hand Delivered Nevaeh Days: Prior Verbal Notification: Recipient Understood Notice: Yes Recipient Signature: Yes Med Rec Note Co-signed by Attending: Coverage Notice Comment: Reviewer: [id number] David Ortega Notice Issued Date-Time: 01/19/2020 10:55 Notice Type: Patient Choice Letter Notice Delivered To: Patient Relationship to Patient: Spanish Medical Interpreter Name: Delivery Method: HAND - Hand Delivered Nevaeh Days: Prior Verbal Notification: Recipient Understood Notice: Yes Recipient Signature: Yes Med Rec Note Co-signed by Attending: Coverage Notice Comment: FILIPE 1)ELITE 2)JACOB Last DP export: 01/13/20 8:16 a Patient Name: HUMBLE QUEEN Page [phone] at 1124 All edits/amendments must be made on the electronic document DICTATION DATE: 01/19/20 1124 LIVE IN HOUSEKEEPER NANNY: COLT 01/19/20 1124 RPT#: [id number] DC DATE: STATUS: ADM IN [facility] [address] [place] [address] END OF REPORT
--- NOTE | 2020-01-19 11:38 | MORECARE ---
CASE MANAGEMENT DISCHARGE SUMMARY PATIENT: HUMBLE QUEEN UNIT: [id number] ADM DATE: 01/08/20 AGE: 79 : 42 SEX: M ROOM/BED: D.2234 AUTHOR: HARRY,DOC PHYSICIAN: REFERRING PHYSICIAN: ALBERTINA DAILY MD DATE OF SERVICE: 01/19/20 Discharge Plan Patient Name: HUMBLE QUEEN Facility: [facility]:[place] : 1940 Planned Disposition: Home Anticipated Discharge Date: 01/13/20 Discharge Date: Expected LOS: 5 Initial Reviewer: [id number] Initial Review Date: 01/08/2020 Generated: 01/19/20 12:37 pm Comments DCP- Discharge Planning Updated by [id number]: Iris Ortega on 01/19/20 10:[address] PATIENT WILL BE DISCHARGING HOME TODAY. IMM SERVED AND EXPLAINED. I SPOKE TO HIS SHE SAID THAT HIS PORTABLE O2 HAS BEEN DELIVERED TO THEIR HOME, AND SHE IS TO CALL WHEN HE GETS HOME AND THEY WILL DELIVER THE CONCENTRATOR. HE DID NOT HAVE A NEBULIZER AND SHE DID NOT KNOW IF THEY WERE GOING TO DELIVER THAT, I HAVE PLACED A CALL INTO [facility] PATIENT TO VERIFY. MD ORDERED HOME HEALTH, HE DID NOT THINK HE NEEDED IT, BUT SINCE MD ORDERED IT HE IS AGREEABLE. [employer] FOR [employer] AND [facility]ACOB HE WANTED WHOEVER TOOK HIS INSURANCE AND WHO IS RANKED THE HIGHEST. I HAVE SENT THE REFERRAL TO [facility]. CM WILL CONTINUE TO ASSIST NEEDED DCP- Discharge Planning Updated by [id number]: Arianne John on 01/13/20 8:[address] Faxed additional information to [facility] Patient for delivery of portable O2. DCP- Discharge Planning Updated by [email or web address]: Arianne John on 01/12/20 2:[address] Plans: DC Home with portable O2 @3L. O2 base and Nebulizer will be delivered to patient's home 01/12. No other needs at this time. DC IMM to , Odalys via telephone. Original via Certified mail. CM met with patient for DC needs. He is in agreement with the assessment. A/O. PCP: Dr. Daily. [facility]. Lives independently with his , Odalys #[phone]. DME [facility]: C-PAP, Glucometer, Walker. Gives permission to speak with his , Odalys. Denies need for HHS, Rehab, SNF. Denies being hospitalized in past 30 days. Patient's will drive him home. He plans to DC 4/20 AM. Contacted Tyler with [facility] @[phone], provided required information, faxed requested information to [phone]. The portable O2 will be delivered to this patient 4 AM. DCPIA - Discharge Planning Initial Assessment Updated by [id number]: Arianne John on 01/12/20 3:26 pm * Is the patient Alert and Oriented? Yes * How many steps to enter\exit or inside your home? * PCP Dr. Daily * Pharmacy [facility] * Preadmission Environment Home with Family * ADLs Independent * Equipment CPAP Glucometer Walker * Other Equipment NA * List name and contact numbers for known caregivers / representatives who currently or will assist patient after discharge: Odalys Queen () [phone] * Verbal permission to speak to the caregivers and representatives has been obtained from the patient. Yes * Community resources currently utilized None * Please name any agencies selected above. [facility] * Additional services required to return to the preadmission environment? Yes * Can the patient safely return to the preadmission environment? Yes * Has this patient been hospitalized within the prior 30 days at any hospital? Yes External Providers External Provider: [facility] Next Contact Date: Service Request Date: Service Type: Resolution: Reviewer: Comments: Coverage Notice Reviewer: [id number] David John Notice Issued Date-Time: 01/12/2020 15:51 Notice Type: Patient Choice Letter Notice Delivered To: Family Member Relationship to Patient: Spouse Towel Rolling Machine Operator Name: Odalys Queen Delivery Method: CERT - Certified Mail Nevaeh Days: Prior Verbal Notification: Yes Recipient Understood Notice: Yes Recipient Signature: Med Rec Note Co-signed by Attending: Coverage Notice Comment: Telephone permission for DC IMM by Odalys Reviewer: [id number] John Notice Issued Date-Time: 01/12/2020 15:51 Notice Type: IM Discharge Notice Notice Delivered To: Family Member Relationship to Patient: Spouse Towel Rolling Machine Operator Name: Odalys Queen Delivery Method: MAIL - Mail Nevaeh Days: Prior Verbal Notification: Yes Recipient Understood Notice: Recipient Signature: Med Rec Note Co-signed by Attending: Coverage Notice Comment: Telephone permission per Odalys Queen (). Original will be mailed by certified mail. Reviewer: [id number] David Ortega Notice Issued Date-Time: 01/19/2020 10:55 Notice Type: Patient Choice Letter Notice Delivered To: Patient Relationship to Patient: Towel Rolling Machine Operator Name: Delivery Method: HAND - Hand Delivered Nevaeh Days: Prior Verbal Notification: Recipient Understood Notice: Yes Recipient Signature: Yes Med Rec Note Co-signed by Attending: Coverage Notice Comment: FILIPE 1)ELITE 2)JACOB Reviewer: [id number] David Ortega Notice Issued Date-Time: 01/19/2020 10:55 Notice Type: IM Discharge Notice Notice Delivered To: Patient Relationship to Patient: Towel Rolling Machine Operator Name: Delivery Method: HAND - Hand Delivered Nevaeh Days: Prior Verbal Notification: Recipient Understood Notice: Yes Recipient Signature: Yes Med Rec Note Co-signed by Attending: Coverage Notice Comment: Last DP export: 01/19/20 10:24 a Patient Name: HUMBLE QUEEN Page [id number] at 1138 All edits/amendments must be made on the electronic document DICTATION DATE: 01/19/201136 THERAPY COORDINATOR: COLT 01/19/20 1137 RPT#: [id number] DC DATE: STATUS: ADM IN [facility] [address] [place] [address] END OF REPORT
--- NOTE | 2020-01-19 11:45 | MORECARE ---
CASE MANAGEMENT DISCHARGE SUMMARY PATIENT: HUMBLE QUEEN UNIT: [id number] ADM DATE: 01/08/20 AGE: 79 : 42 SEX: M ROOM/BED: D.2234 AUTHOR: HARRY,DOC PHYSICIAN: REFERRING PHYSICIAN: ALBERTINA DAILY MD DATE OF SERVICE: 01/19/20 Discharge Plan Patient Name: HUMBLE QUEEN Facility: [facility]:[place] : 1940 Planned Disposition: Home Anticipated Discharge Date: 01/13/20 Discharge Date: Expected LOS: 5 Initial Reviewer: [email or web address] Initial Review Date: 01/08/2020 Generated: 01/19/20 12:44 pm Comments DCP- Discharge Planning Updated by [id number]: Irsi Ortega on 01/19/20 10:[address] SPOKE WITH FEDERICO AT [facility] AND HE WILL BE DELIVERING ALL DME TO THE HOME TODAY (NEB, CONCENTRATOR AND PORT O2) HE STATED THAT THE HAD PICKED UP PORT O2 LAST WEEK WHEN THE PATIENT WAS TO BE DISCHARGED. I HAVE ALSO FAXED CLINICAL TO [facility]. DCP- Discharge Planning Updated by [id number]: Iris Ortega on 01/19/20 10:[address] PATIENT WILL BE DISCHARGING HOME TODAY. IMM SERVED AND EXPLAINED. I SPOKE TO HIS SHE SAID THAT HIS PORTABLE O2 HAS BEEN DELIVERED TO THEIR HOME, AND SHE IS TO CALL WHEN HE GETS HOME AND THEY WILL DELIVER THE CONCENTRATOR. HE DID NOT HAVE A NEBULIZER AND SHE DID NOT KNOW IF THEY WERE GOING TO DELIVER THAT, I HAVE PLACED A CALL INTO [facility] PATIENT TO VERIFY. MD ORDERED HOME HEALTH, HE DID NOT THINK HE NEEDED IT, BUT SINCE MD ORDERED IT HE IS AGREEABLE. [facility] FOR [facility] AND [facility]ACOB HE WANTED WHOEVER TOOK HIS INSURANCE AND WHO IS RANKED THE HIGHEST. I HAVE SENT THE REFERRAL TO [facility]. CM WILL CONTINUE TO ASSIST NEEDED DCP- Discharge Planning Updated by [id number]: Arianne John on 01/13/20 8:[address] Faxed additional information to [facility] Patient for delivery of portable O2. DCP- Discharge Planning Updated by [id number]: Arianne John on 01/12/20 2:[address] Plans: DC Home with portable O2 @3L. O2 base and Nebulizer will be delivered to patient's home 01/12. No other needs at this time. DC IMM to Odalys via telephone. Original via Certified mail. CM met with patient for DC needs. He is in agreement with the assessment. A/O. PCP: Dr. Daily. Pharmacy: [address] Lives independently with his Odalys #[phone]. DME [facility] [place] Patient: C-PAP, Glucometer, Walker. Gives permission to speak with his , Odalys. Denies need for HHS, Rehab, SNF. Denies being hospitalized in past 30 days. Patient's will drive him home. He plans to DC 4 AM. Contacted Tyler with [facility] [place] [facility] @[phone], provided required information, faxed requested information to [phone]. The portable O2 will be delivered to this patient 4 AM. DCPIA - Discharge Planning Initial Assessment Updated by [id number]: Arianne John on 01/12/20 3:26 pm * Is the patient Alert and Oriented? Yes * How many steps to enter\exit or inside your home? * PCP Dr. Daily * Pharmacy [facility] * Preadmission Environment Home with Family * ADLs Independent * Equipment CPAP Glucometer Walker * Other Equipment NA * List name and contact numbers for known caregivers / representatives who currently or will assist patient after discharge: Odalys Queen () [phone] * Verbal permission to speak to the caregivers and representatives has been obtained from the patient. Yes * Community resources currently utilized None * Please name any agencies selected above. [facility] [place] [facility] * Additional services required to return to the preadmission environment? Yes * Can the patient safely return to the preadmission environment? Yes * Has this patient been hospitalized within the prior 30 days at any hospital? Yes Coverage Notice Reviewer: [id number] - Arianne John Notice Issued Date-Time: 01/12/2020 15:51 Notice Type: Patient Choice Letter Notice Delivered To: Family Member Relationship to Patient: Spouse Tufting Supervisor Name: Odalys Queen Delivery Method: CERT - Certified Mail Nevaeh Days: Prior Verbal Notification: Yes Recipient Understood Notice: Yes Recipient Signature: Med Rec Note Co-signed by Attending: Coverage Notice Comment: Telephone permission for DC IMM by Odalys Reviewer: [id number] - Arianne Quirozlroy Notice Issued Date-Time: 01/12/2020 15:51 Notice Type: IM Discharge Notice Notice Delivered To: Family Member Relationship to Patient: Spouse Tufting Supervisor Name: Odalys Queen Delivery Method: MAIL - Mail Nevaeh Days: Prior Verbal Notification: Yes Recipient Understood Notice: Recipient Signature: Med Rec Note Co-signed by Attending: Coverage Notice Comment: Telephone permission per Odalys Queen (). Original will be mailed by certified mail. Reviewer: [id number] David Ortega Notice Issued Date-Time: 01/19/2020 10:55 Notice Type: Patient Choice Letter Notice Delivered To: Patient Relationship to Patient: Tufting Supervisor Name: Delivery Method: HAND - Hand Delivered Nevaeh Days: Prior Verbal Notification: Recipient Understood Notice: Yes Recipient Signature: Yes Med Rec Note Co-signed by Attending: Coverage Notice Comment: FILIPE 1)ELITE 2)JACOB Reviewer: [id number] David Ortega Notice Issued Date-Time: 01/19/2020 10:55 Notice Type: IM Discharge Notice Notice Delivered To: Patient Relationship to Patient: Tufting Supervisor Name: Delivery Method: HAND - Hand Delivered Nevaeh Days: Prior Verbal Notification: Recipient Understood Notice: Yes Recipient Signature: Yes Med Rec Note Co-signed by Attending: Coverage Notice Comment: Last DP export: 01/19/20 10:38 a Patient Name: HUMBLE QUEEN Page 68860 at 1145 All edits/amendments must be made on the electronic document DICTATION DATE: 01/19/20 1144 MANUFACTURING TECHNOLOGIST: COLT 01/19/20 1144 RPT#: [id number] DC DATE: STATUS: ADM IN [facility] [address] [place] [address] END OF REPORT
--- NOTE | 2020-01-19 11:52 | MORECARE ---
CASE MANAGEMENT DISCHARGE SUMMARY PATIENT: HUMBLE QUEEN UNIT: [id number] ADM DATE: 01/08/20 AGE: 79 : 42 SEX: M ROOM/BED: D.2234 AUTHOR: HARRY,DOC PHYSICIAN: REFERRING PHYSICIAN: ALBERTINA DAILY MD DATE OF SERVICE: 01/19/20 Discharge Plan Patient Name: HMUBLE QUEEN Facility: [facility]:[place] : 1940 Planned Disposition: Home Anticipated Discharge Date: 01/13/20 Discharge Date: Expected LOS: 5 Initial Reviewer: [id number] Initial Review Date: 01/08/2020 Generated: 01/19/20 12:51 pm Comments DCP- Discharge Planning Updated by [id number]: Iris Ortega on 01/19/20 10:[address] [facility] DID A WALK TEST AND THE PATIENT DROPPED TO 83% WHEN AMBULATED PLACED ON 3L O2 AND INCREADED TO 93% ON 3L DCP- Discharge Planning Updated by [id number]: Iris Ortega on 01/19/20 10:[address] SPOKE WITH FEDERICO AT [facility] PATIENT AND HE WILL BE DELIVERING ALL DME TO THE HOME TODAY (NEB, CONCENTRATOR AND PORT O2) HE STATED THAT THE HAD PICKED UP PORT O2 LAST WEEK WHEN THE PATIENT WAS TO BE DISCHARGED. I HAVE ALSO FAXED CLINICAL TO [facility]. DCP- Discharge Planning Updated by [id number]: Iris Ortega on 01/19/20 10:[address] PATIENT WILL BE DISCHARGING HOME TODAY. IMM SERVED AND EXPLAINED. I SPOKE TO HIS SHE SAID THAT HIS PORTABLE O2 HAS BEEN DELIVERED TO THEIR HOME, AND SHE IS TO CALL WHEN HE GETS HOME AND THEY WILL DELIVER THE CONCENTRATOR. HE DID NOT HAVE A NEBULIZER AND SHE DID NOT KNOW IF THEY WERE GOING TO DELIVER THAT, I HAVE PLACED A CALL INTO [facility]IENT TO VERIFY. MD ORDERED HOME HEALTH, HE DID NOT THINK HE NEEDED IT, BUT SINCE MD ORDERED IT HE IS AGREEABLE. [facility] FOR [facility] AND [facility]ACOB HE WANTED WHOEVER TOOK HIS INSURANCE AND WHO IS RANKED THE HIGHEST. I HAVE SENT THE REFERRAL TO [facility]. CM WILL CONTINUE TO ASSIST NEEDED DCP- Discharge Planning Updated by [email or web address]: Arianne John on 01/13/20 8:[address] Faxed additional information to [facility] [place] Patient for delivery of portable O2. DCP- Discharge Planning Updated by [id number]: Arianne John on 01/12/20 2:[address] Plans: DC Home with portable O2 @3L. O2 base and Nebulizer will be delivered to patient's home 01/12. No other needs at this time. DC IMM to , Odalys via telephone. Original via Certified mail. CM met with patient for DC needs. He is in agreement with the assessment. A/O. PCP: Dr. Daily. [facility]. Lives independently with his , Odalys #[phone]. DME [facility] Patient: C-PAP, Glucometer, Walker. Gives permission to speak with his , dOalys. Denies need for HHS, Rehab, SNF. Denies being hospitalized in past 30 days. Patient's will drive him home. He plans to DC 4 AM. Contacted Tyler with [facility] Patient @[phone], provided required information, faxed requested information to [phone]. The portable O2 will be delivered to this patient 4 AM. DCPIA - Discharge Planning Initial Assessment Updated by [id number]: Arianne John on 01/12/20 3:26 pm * Is the patient Alert and Oriented? Yes * How many steps to enter\exit or inside your home? * PCP Dr. Daily * Pharmacy [facility] * Preadmission Environment Home with Family * ADLs Independent * Equipment CPAP Glucometer Walker * Other Equipment NA * List name and contact numbers for known caregivers / representatives who currently or will assist patient after discharge: Odalys Queen () [phone] * Verbal permission to speak to the caregivers and representatives has been obtained from the patient. Yes * Community resources currently utilized None * Please name any agencies selected above. [facility] [place] Patient * Additional services required to return to the preadmission environment? Yes * Can the patient safely return to the preadmission environment? Yes * Has this patient been hospitalized within the prior 30 days at any hospital? Yes Coverage Notice Reviewer: [id number] - Arianne John Notice Issued Date-Time: 01/12/2020 15:51 Notice Type: Patient Choice Letter Notice Delivered To: Family Member Relationship to Patient: Spouse Monument Stonecutter Name: Odalys Queen Delivery Method: CERT - Certified Mail Nevaeh Days: Prior Verbal Notification: Yes Recipient Understood Notice: Yes Recipient Signature: Med Rec Note Co-signed by Attending: Coverage Notice Comment: Telephone permission for DC IMM by Odalys bloom Reviewer: [id number] David Arianne Quirozlroy Notice Issued Date-Time: 01/12/2020 15:51 Notice Type: IM Discharge Notice Notice Delivered To: Family Member Relationship to Patient: Spouse Monument Stonecutter Name: Odalys Queen Delivery Method: MAIL - Mail Nevaeh Days: Prior Verbal Notification: Yes Recipient Understood Notice: Recipient Signature: Med Rec Note Co-signed by Attending: Coverage Notice Comment: Telephone permission per Odalys Queen (). Original will be mailed by certified mail. Reviewer: [id number] David Ortega Notice Issued Date-Time: 01/19/2020 10:55 Notice Type: Patient Choice Letter Notice Delivered To: Patient Relationship to Patient: Monument Stonecutter Name: Delivery Method: HAND - Hand Delivered Nevaeh Days: Prior Verbal Notification: Recipient Understood Notice: Yes Recipient Signature: Yes Med Rec Note Co-signed by Attending: Coverage Notice Comment: FILIPE 1)ELITE 2)JACOB Reviewer: [id number] David Ortega Notice Issued Date-Time: 01/19/2020 10:55 Notice Type: IM Discharge Notice Notice Delivered To: Patient Relationship to Patient: Monument Stonecutter Name: Delivery Method: HAND - Hand Delivered Nevaeh Days: Prior Verbal Notification: Recipient Understood Notice: Yes Recipient Signature: Yes Med Rec Note Co-signed by Attending: Coverage Notice Comment: Last DP export: 01/19/20 10:45 a Patient Name: HUMBLE QUEEN Page 26863 at 1152 All edits/amendments must be made on the electronic document DICTATION DATE: 01/19/20 1151 FOREST NURSERY WORKER: COLT 01/19/20 1151 RPT#: [id number] DC DATE: STATUS: ADM IN [facility] [address] [place] [address] END OF REPORT
--- NOTE | 2020-01-19 13:15 | NUR ---
IV DISCONTINUED AND VERBALIZED UNDERSTANDING OF DISCHARGE INSTRUCTIONS. STABLE AT TIME OF DEPARTURE UNDER CARE OF FAMILY
--- NOTE | 2020-01-19 15:03 | MORECARE ---
CASE MANAGEMENT DISCHARGE SUMMARY PATIENT: HUMBLE QUEEN UNIT: [id number] ADM DATE: 01/08/20 AGE: 79 : 42 SEX: M ROOM/BED: D.2234 AUTHOR: HARRY,DOC PHYSICIAN: REFERRING PHYSICIAN: ALBERTINA DAILY MD DATE OF SERVICE: 01/19/20 Discharge Plan Patient Name: HUMBLE QUEEN Facility: [facility]:[place] : 1940 Planned Disposition: Home Anticipated Discharge Date: 01/13/20 Discharge Date: 01/19/2020 Expected LOS: 5 Initial Reviewer: [id number] Initial Review Date: 01/08/2020 Generated: 01/19/20 4:02 pm Comments DCP- Discharge Planning Updated by [id number]: Iris Ortega on 01/19/20 10:[address] JUNIE KING DID A WALK TEST AND THE PATIENT DROPPED TO 83% WHEN AMBULATED PLACED ON 3L O2 AND INCREADED TO 93% ON 3L DCP- Discharge Planning Updated by [id number]: Iris Ortega on 01/19/20 10:[address] SPOKE WITH FEDERICO AT [facility] PATIENT AND HE WILL BE DELIVERING ALL DME TO THE HOME TODAY (NEB, CONCENTRATOR AND PORT O2) HE STATED THAT THE HAD PICKED UP PORT O2 LAST WEEK WHEN THE PATIENT WAS TO BE DISCHARGED. I HAVE ALSO FAXED CLINICAL TO [facility]. DCP- Discharge Planning Updated by [id number]: Iris Ortega on 01/19/20 10:[address] PATIENT WILL BE DISCHARGING HOME TODAY. IMM SERVED AND EXPLAINED. I SPOKE TO HIS SHE SAID THAT HIS PORTABLE O2 HAS BEEN DELIVERED TO THEIR HOME, AND SHE IS TO CALL WHEN HE GETS HOME AND THEY WILL DELIVER THE CONCENTRATOR. HE DID NOT HAVE A NEBULIZER AND SHE DID NOT KNOW IF THEY WERE GOING TO DELIVER THAT, I HAVE PLACED A CALL INTO [facility]IENT TO VERIFY. ORDERED HOME HEALTH, HE DID NOT THINK HE NEEDED IT, BUT SINCE MD ORDERED IT HE IS AGREEABLE. [facility] FOR [employer] AND [facility]ACOB HE WANTED WHOEVER TOOK HIS INSURANCE AND WHO IS RANKED THE HIGHEST. I HAVE SENT THE REFERRAL TO [facility]. CM WILL CONTINUE TO ASSIST NEEDED DCP- Discharge Planning Updated by [id number]: Arianne John on 01/13/20 8:[address] Faxed additional information to [facility] Patient for delivery of portable O2. DCP- Discharge Planning Updated by [id number]: Arianne John on 01/12/20 2:[address] Plans: DC Home with portable O2 @3L. O2 base and Nebulizer will be delivered to patient's home 01/12. No other needs at this time. DC IMM to , Odalys via telephone. Original via Certified mail. CM met with patient for DC needs. He is in agreement with the assessment. A/O. PCP: Dr. Daily. Pharmacy: [id number]. Lives independently with his , Odalys #[phone]. DME [facility] Patient: C-PAP, Glucometer, Walker. Gives permission to speak with his , Odalys. Denies need for HHS, Rehab, SNF. Denies being hospitalized in past 30 days. Patient's will drive him home. He plans to DC 4 AM. Contacted Tyler with [facility] [place] Patient @[phone], provided required information, faxed requested information to [phone]. The portable O2 will be delivered to this patient 4 AM. DCPIA - Discharge Planning Initial Assessment Updated by [email or web address]: Arianne John on 01/12/20 3:26 pm * Is the patient Alert and Oriented? Yes * How many steps to enter\exit or inside your home? * PCP Dr. Daily * Pharmacy [facility] * Preadmission Environment Home with Family * ADLs Independent * Equipment CPAP Glucometer Walker * Other Equipment NA * List name and contact numbers for known caregivers / representatives who currently or will assist patient after discharge: Odalys Queen () [phone] * Verbal permission to speak to the caregivers and representatives has been obtained from the patient. Yes * Community resources currently utilized None * Please name any agencies selected above. [facility] * Additional services required to return to the preadmission environment? Yes * Can the patient safely return to the preadmission environment? Yes * Has this patient been hospitalized within the prior 30 days at any hospital? Yes Coverage Notice Reviewer: [id number] - Arianne John Notice Issued Date-Time: 01/12/2020 15:51 Notice Type: IM Discharge Notice Notice Delivered To: Family Member Relationship to Patient: Spouse Teacher Vocational Training Name: Odalys Queen Delivery Method: MAIL - Mail Nevaeh Days: Prior Verbal Notification: Yes Recipient Understood Notice: Recipient Signature: Med Rec Note Co-signed by Attending: Coverage Notice Comment: Telephone permission per Odalys Queen (). Original will be mailed by certified mail. Reviewer: [id number] David John Notice Issued Date-Time: 01/12/2020 15:51 Notice Type: Patient Choice Letter Notice Delivered To: Family Member Relationship to Patient: Spouse Teacher Vocational Training Name: Odalys Queen Delivery Method: CERT - Certified Mail Nevaeh Days: Prior Verbal Notification: Yes Recipient Understood Notice: Yes Recipient Signature: Med Rec Note Co-signed by Attending: Coverage Notice Comment: Telephone permission for DC IMM by Odalys bloom Reviewer: [id number] David Ortega Notice Issued Date-Time: 01/19/2020 10:55 Notice Type: IM Discharge Notice Notice Delivered To: Patient Relationship to Patient: Teacher Vocational Training Name: Delivery Method: HAND - Hand Delivered Nevaeh Days: Prior Verbal Notification: Recipient Understood Notice: Yes Recipient Signature: Yes Med Rec Note Co-signed by Attending: Coverage Notice Comment: Reviewer: [id number] David Ortega Notice Issued Date-Time: 01/19/2020 10:55 Notice Type: Patient Choice Letter Notice Delivered To: Patient Relationship to Patient: Teacher Vocational Training Name: Delivery Method: HAND - Hand Delivered Nevaeh Days: Prior Verbal Notification: Recipient Understood Notice: Yes Recipient Signature: Yes Med Rec Note Co-signed by Attending: Coverage Notice Comment: FILIPE 1)ELITE 2)JACOB Last DP export: 01/19/20 10:52 a Patient Name: HUMBLE QUEEN Page 95296 at 1503 All edits/amendments must be made on the electronic document DICTATION DATE: 01/19/20 1502 NURSE'S AIDES TEACHER: COLT 01/19/20 1502 RPT#: [id number] DC DATE:01/19/20 STATUS: DIS IN [facility] [address] [place] [address] END OF REPORT
--- NOTE | 2020-01-20 16:08 | MORECARE ---
CASE MANAGEMENT DISCHARGE SUMMARY PATIENT: HUMBLE QUEEN UNIT: [id number] ADM DATE: 01/08/20 AGE: 79 : 42 SEX: M ROOM/BED: D.2234 AUTHOR: HARRY,DOC PHYSICIAN: REFERRING PHYSICIAN: ALBERTINA DAILY MD DATE OF SERVICE: 01/20/20 Discharge Plan Patient Name: HUMBLE QUEEN Facility: [facility]:[place] : 1940 Planned Disposition: Home Anticipated Discharge Date: 01/13/20 Discharge Date: 01/19/2020 Expected LOS: 5 Initial Reviewer: [email or web address] Initial Review Date: 01/08/2020 Generated: 01/20/20 5:08 pm Comments DCP- Discharge Planning Updated by [id number]: Iris Ortega on 01/20/20 3:[address] FAXED WALK TEST AND NEBULIZER ORDER TO [facility] PATIENT AND CALLED AND SPOKE TO MICHAEL DCP- Discharge Planning Updated by [email or web address]: Iris Ortega on 01/19/20 10:[address] JUNIE KING DID A WALK TEST AND THE PATIENT DROPPED TO 83% WHEN AMBULATED PLACED ON 3L O2 AND INCREADED TO 93% ON 3L DCP- Discharge Planning Updated by [email or web address]: Iris Ortega on 01/19/20 10:[address] SPOKE WITH FEDERICO AT [facility] PATIENT AND HE WILL BE DELIVERING ALL DME TO THE HOME TODAY (NEB, CONCENTRATOR AND PORT O2) HE STATED THAT THE HAD PICKED UP PORT O2 LAST WEEK WHEN THE PATIENT WAS TO BE DISCHARGED. I HAVE ALSO FAXED CLINICAL TO [facility]. DCP- Discharge Planning Updated by [id number]: Iris Ortega on 01/19/20 10:[address] PATIENT WILL BE DISCHARGING HOME TODAY. IMM SERVED AND EXPLAINED. I SPOKE TO HIS SHE SAID THAT HIS PORTABLE O2 HAS BEEN DELIVERED TO THEIR HOME, AND SHE IS TO CALL WHEN HE GETS HOME AND THEY WILL DELIVER THE CONCENTRATOR. HE DID NOT HAVE A NEBULIZER AND SHE DID NOT KNOW IF THEY WERE GOING TO DELIVER THAT, I HAVE PLACED A CALL INTO [facility] PATIENT TO VERIFY. ORDERED HOME HEALTH, HE DID NOT THINK HE NEEDED IT, BUT SINCE MD ORDERED IT HE IS AGREEABLE. FILIPE FOR [employer] AND JACOB HE WANTED WHOEVER TOOK HIS INSURANCE AND WHO IS RANKED THE HIGHEST. I HAVE SENT THE REFERRAL TO [facility] [facility]. CM WILL CONTINUE TO ASSIST NEEDED DCP- Discharge Planning Updated by [email or web address]: Arianne Noriegaoy on 01/13/20 8:[address] Faxed additional information to [facility] Patient for delivery of portable O2. DCP- Discharge Planning Updated by [id number]: Arianne Quirozlroy on 01/12/20 2:[address] Plans: DC Home with portable O2 @3L. O2 base and Nebulizer will be delivered to patient's home 01/12. No other needs at this time. DC IMM to , Odalys via telephone. Original via Certified mail. CM met with patient for DC needs. He is in agreement with the assessment. A/O. PCP: Dr. Daily. Pharmacy: [address] Lives independently with his , Odalys #[phone]. DME [facility] Patient: C-PAP, Glucometer, Walker. Gives permission to speak with his , Odalys. Denies need for HHS, Rehab, SNF. Denies being hospitalized in past 30 days. Patient's will drive him home. He plans to DC 4/20 AM. Contacted Michael with [facility] Patient @[phone], provided required information, faxed requested information to [phone]. The portable O2 will be delivered to this patient 4/20 AM. DCPIA - Discharge Planning Initial Assessment Updated by [id number]: Arianne Quirozlroy on 01/12/20 3:26 pm * Is the patient Alert and Oriented? Yes * How many steps to enter\exit or inside your home? * PCP Dr. Daily * Pharmacy [facility] * Preadmission Environment Home with Family * ADLs Independent * Equipment CPAP Glucometer Walker * Other Equipment NA * List name and contact numbers for known caregivers / representatives who currently or will assist patient after discharge: Odalys Queen () [phone] * Verbal permission to speak to the caregivers and representatives has been obtained from the patient. Yes * Community resources currently utilized None * Please name any agencies selected above. [facility] Patient * Additional services required to return to the preadmission environment? Yes * Can the patient safely return to the preadmission environment? Yes * Has this patient been hospitalized within the prior 30 days at any hospital? Yes Coverage Notice Reviewer: [id number] David John Notice Issued Date-Time: 01/12/2020 15:51 Notice Type: IM Discharge Notice Notice Delivered To: Family Member Relationship to Patient: Spouse Environmental Law Professor Name: Odalys Queen Delivery Method: MAIL - Mail Nevaeh Days: Prior Verbal Notification: Yes Recipient Understood Notice: Recipient Signature: Med Rec Note Co-signed by Attending: Coverage Notice Comment: Telephone permission per Odalys Queen (). Original will be mailed by certified mail. Reviewer: [email or web address] David John Notice Issued Date-Time: 01/12/2020 15:51 Notice Type: Patient Choice Letter Notice Delivered To: Family Member Relationship to Patient: Spouse Environmental Law Professor Name: Odalys Queen Delivery Method: CERT - Certified Mail Nevaeh Days: Prior Verbal Notification: Yes Recipient Understood Notice: Yes Recipient Signature: Med Rec Note Co-signed by Attending: Coverage Notice Comment: Telephone permission for DC IMM by Odalys bloom Reviewer: [email or web address] David Ortega Notice Issued Date-Time: 01/19/2020 10:55 Notice Type: IM Discharge Notice Notice Delivered To: Patient Relationship to Patient: Environmental Law Professor Name: Delivery Method: HAND - Hand Delivered Nevaeh Days: Prior Verbal Notification: Recipient Understood Notice: Yes Recipient Signature: Yes Med Rec Note Co-signed by Attending: Coverage Notice Comment: Reviewer: [id number] Ortega Notice Issued Date-Time: 01/19/2020 10:55 Notice Type: Patient Choice Letter Notice Delivered To: Patient Relationship to Patient: Environmental Law Professor Name: Delivery Method: HAND - Hand Delivered Nevaeh Days: Prior Verbal Notification: Recipient Understood Notice: Yes Recipient Signature: Yes Med Rec Note Co-signed by Attending: Coverage Notice Comment: FILIPE 1)[facility] 2)JACOB Last DP export: 01/19/20 2:03 p Patient Name: HUMBLE QUEEN Page 69073 at 1608 All edits/amendments must be made on the electronic document DICTATION DATE: 01/20/20 1608 COMMUNITY DIRECTOR: COLT 01/20/20 1608 RPT#: [id number] DC DATE:01/19/20 STATUS: DIS IN [facility] [address] [place] [address] END OF REPORT
== END 2020-01-19 13:15 | disposition home health service (06) | DRG 291 ==
LOC: D.ER 15:01 → D.MS 16:48
PROVIDERS: Family Medicine; General Practice; Internal Medicine Pulmonary Disease; ADMIT Family Medicine; ATTEND Family Medicine
PROC: 0W9930Z Drainage of Right Pleural Cavity with Drainage Device, Percutaneous Approach (ICD-10-PCS; principal; 2020-01-13 11:38)
DX: I11.0 Hypertensive heart disease with heart failure (principal); J18.9 Pneumonia, unspecified organism; I24.8 Other forms of acute ischemic heart disease; Z68.41 Body mass index [BMI] 40.0-44.9, adult; I48.20 Chronic atrial fibrillation, unspecified; J93.9 Pneumothorax, unspecified; D50.9 Iron deficiency anemia, unspecified; I50.23 Acute on chronic systolic (congestive) heart failure; I25.10 Atherosclerotic heart disease of native coronary artery without angina pectoris; Z95.0 Presence of cardiac pacemaker; E11.9 Type 2 diabetes mellitus without complications; E66.01 Morbid (severe) obesity due to excess calories; F41.9 Anxiety disorder, unspecified

== ENCOUNTER 2020-02-14 13:01 | Outpatient (CLI) | payer MEDICARE, BC ==
[~2020-02-14] VITALS: Ht 188 cm; Wt 156.8 kg
[~2020-02-14 13:01] MED LIST changes: +IPRAT-ALBUT 0.5-3 ML INH
[2020-02-14 14:19] VITALS: BP 89/65; Ht 188 cm; Wt 156.8 kg
== END 2020-02-14 18:00 ==
LOC: D.OPS 13:01
PROVIDERS: ATTEND Internal Medicine Medical Oncology
DX: D64.9 Anemia, unspecified (principal)

== ENCOUNTER → 2020-02-21 11:48 | Outpatient (CLI) | payer MEDICARE, BC ==
[~2020-02-21] VITALS: Ht 188 cm; Wt 159.1 kg
[2020-02-21 14:35] VITALS: BP 126/41; Ht 188 cm; Wt 159.1 kg
== END | disposition home or self-care (01) ==
LOC: D.LAB 11:48 → D.OPS 12:00 → D.CT 12:00 → D.RAD 13:45 → D.RT 14:00
PROVIDERS: ATTEND Internal Medicine Pulmonary Disease
DX: D64.9 Anemia, unspecified (principal); R06.02 Shortness of breath; I50.9 Heart failure, unspecified; J44.9 Chronic obstructive pulmonary disease, unspecified

== ENCOUNTER 2020-03-13 12:44 | Inpatient (IN) | payer MEDICARE, BC ==
[~2020-03-13] VITALS: Ht 188 cm; Wt 162.6 kg
[2020-03-13 14:15] VITALS: BMI 45.0
--- NOTE | 2020-03-13 14:15 | NUR ---
DR. POWELL'S NURSE MOI NOTIFED OF CXR RESULTS. ASKED TO NOTIFY DR. CANTU OFFICE FOR FURTHER ORDERS AND POSSIBLE ADMISSION. SPOKE WITH JEANNE AT DR. DAILY'S OFFICE, WILL ADMIT TO FLOOR FOR BILATERAL PLEURAL EFFUSION AND ANEMIA. SPOKE TO LEONIDAS BELLAASSEMBLER PLASTIC BOAT, WILL ADMIT TO 2205.
[2020-03-13 16:40] VITALS: BP 133/43
[2020-03-13 16:55] VITALS: BP 142/52
[2020-03-13 17:15] VITALS: BP 129/51; BMI 46.2
[2020-03-13 20:00] VITALS: BP 128/78
[2020-03-14 00:01] VITALS: BP 147/75
[2020-03-14 05:16] VITALS: BP 126/48
[2020-03-14 07:54] LABS: BASOPHILS 0.7 % (0-2); EOSINOPHILS 5.5 % (0-7); HEMATOCRIT 25.9 % (42.0-54.0); IMMATURE GRANULOCYTES 0.3 % (0-5); LYMPHOCYTES 10.6 % (15-50); MCH 21.9 pg (26.0-34.0); MCHC 28.6 g/dL (31.0-37.0); MCV 76.6 fL (80.0-100.0); MEAN PLATELET VOLUME 8.7 fL (7.4-10.4); MONOCYTES 9.4 % (2-11); NEUTROPHILS 73.5 % (40-80); PLATELET COUNT 287 10x3/uL (130-400); RBC 3.38 10x6/uL (4.20-6.10); RDW 20.8 % (11.5-14.5); WBC 6.1 10x3/uL (4.8-10.8)
[2020-03-14 08:02] LABS: HEMOGLOBIN 7.4 g/dL (13.5-17.5)
[2020-03-14 08:06] LABS: ANION GAP 7.9 mmol/L (8-16); CALCIUM 8.1 mg/dL (8.5-10.1); CARBON DIOXIDE 28.9 mmol/L (21.0-32.0); CREATININE - SERUM 1.4 mg/dL (0.6-1.3); POTASSIUM - SERUM 3.8 mmol/L (3.5-5.1)
--- NOTE | 2020-03-14 09:00 | NUR ---
ALERT AND OREIENTED X4. LUNGS DIMINISHED X4 POSTERIOR. O2 2L N/C. EDEMA 4+ NOTED TO BLE WITH FEET ELEVATED. DR. CASANOVA HERE FOR CONSULT.HRRR AND DENIES ANY DYSPNEA OR CHEST PAIN. BIPAP USED WHEN RESTING IN BED. DENIES ANY PAIN OR DISCOMFORT.
[2020-03-14 10:39] VITALS: BP 115/60
--- NOTE | 2020-03-14 10:56 | NUR ---
1ST UNIT PRBC'S STARTED WITH NO S/S OF REACTION NOTED.
--- NOTE | 2020-03-14 14:20 | NUR ---
STARTED 2ND UNIT PRBC'S WITH NO S/S OF INFECTION/INFILTRATION. IV RESITED TO LEFT HAND 20G WITH NO S/S OF INFECTION/INFILTRATION
[2020-03-14 15:19] VITALS: BP 108/48
[2020-03-14 18:37] VITALS: BP 122/58
[2020-03-14 20:21] VITALS: BP 133/49
[2020-03-15 00:25] VITALS: BP 124/52
[2020-03-15 04:30] VITALS: BP 118/60
[2020-03-15 06:22] LABS: ANION GAP 9.7 mmol/L (8-16); CALCIUM 8.4 mg/dL (8.5-10.1); CREATININE - SERUM 1.4 mg/dL (0.6-1.3); POTASSIUM - SERUM 3.7 mmol/L (3.5-5.1)
[2020-03-15 06:29] LABS: HEMATOCRIT 28.4 % (42.0-54.0); HEMOGLOBIN 8.2 g/dL (13.5-17.5); LYMPHOCYTES 21.9 % (15-50); MCH 22.3 pg (26.0-34.0); MCHC 28.9 g/dL (31.0-37.0); MCV 77.2 fL (80.0-100.0); MEAN PLATELET VOLUME 8.6 fL (7.4-10.4); PLATELET COUNT 332 10x3/uL (130-400); RBC 3.68 10x6/uL (4.20-6.10); RDW 20.2 % (11.5-14.5); WBC 6.4 10x3/uL (4.8-10.8)
[2020-03-15 08:44] VITALS: BP 126/39
--- NOTE | 2020-03-15 09:00 | NUR ---
ALERT AND ORIENTED X4. EDEMA 3= NOTED TO BLE WITH ERRYTHEMA NOTED TO RLE WITH PEDAL PULSES NOTED. ENCOURAGED TO KEEP FEET ELEVATED WHEN AT REST. RESP EVEN WITH SOB WITH MINIMAL EXERTION. ENCOURAGED TO USE CALLL LIGHT FOR ASSSIT.
[2020-03-15 12:10] VITALS: BP 134/61
[2020-03-15 16:07] VITALS: BP 114/52
[2020-03-15 20:25] VITALS: BP 155/56
[2020-03-16] VITALS (11 sets, daily range): BP systolic 123–154; BP diastolic 38–81; Ht 188 cm; Wt 162.6 kg
[2020-03-16 05:18] LABS: ANION GAP 9.7 mmol/L (8-16); CALCIUM 8.2 mg/dL (8.5-10.1); CARBON DIOXIDE 29.9 mmol/L (21.0-32.0); CREATININE - SERUM 1.6 mg/dL (0.6-1.3); POTASSIUM - SERUM 3.6 mmol/L (3.5-5.1)
[2020-03-16 05:28] LABS: HEMATOCRIT 28.9 % (42.0-54.0); HEMOGLOBIN 8.4 g/dL (13.5-17.5); LYMPHOCYTES 9.3 % (15-50); MCH 22.5 pg (26.0-34.0); MCHC 29.1 g/dL (31.0-37.0); MCV 77.5 fL (80.0-100.0); MEAN PLATELET VOLUME 8.6 fL (7.4-10.4); NEUTROPHILS 79.2 % (40-80); PLATELET COUNT 318 10x3/uL (130-400); RBC 3.73 10x6/uL (4.20-6.10); RDW 20.6 % (11.5-14.5); WBC 6.6 10x3/uL (4.8-10.8)
[2020-03-16 07:26] LABS: APTT 36.2 SECONDS (22.8-39.4); INR 1.3 (0.85-1.17); PROTIME 16.1 SECONDS (11.6-15.0)
--- NOTE | 2020-03-16 08:10 | NUR ---
PT RESTING IN BED WITH CPAP IN PLACE WITH O2 @ 2L INTACT. PT DENIES PAIN AT THIS TIME. PT EDUCATED REGARDING NPO STATUS DUE TO UPCOMING PROCEDURE. PT VOICES UNDERSTANDING AT THIS TIME. SALINE LOC TO LEFT HAND INTACT, SITE WITHOUT REDNESS OR EDEMA. EDEMA NOTED TO BILATERAL LOWER EXTREMITIES WITH REDNESS. PT DENIES FURTHER NEEDS AT THIS TIME. CL WITHIN REACH. ENCOURAGED TO CALL WITH NEEDS. CONTINUE POC
[2020-03-16 12:29] LABS: PROTEIN - BODY FLUID 2.6 G/DL
[2020-03-16 14:46] LABS: EOS BF 6 %; MACROPHAGES BF 65 %; MESOTHELIALS BF 3 %; NEUT - BF 16 %
--- NOTE | 2020-03-16 21:30 | NUR ---
LYING IN BED. DENIES PAIN. CPAP IN USE. RESP IRREG, SOB. EDEMA NOTED TO BLE. SALINE LOCK NOTED TO LT HAND. NO DISTRESS. ABD IS OBESE. DRSG NOTED TO RT CHEST. SR ELEVATED X2. CL IN REACH. ALERT AND ORIENTED X4. REFUSED SLIDING SCALE INSULIN. ENCOURAGED BEDTIME SNACK BUT REFUSED.
[2020-03-17 00:33] VITALS: BP 136/49
--- NOTE | 2020-03-17 02:27 | NUR ---
HAS RESTED WELL SO FAR THIS SHIFT. NO DISTRESS. CL IN REACH.
[2020-03-17 04:00] VITALS: BP 98/30
[2020-03-17 05:58] LABS: BASOPHILS 0.6 % (0-2); EOSINOPHILS 4.8 % (0-7); HEMATOCRIT 27.2 % (42.0-54.0); HEMOGLOBIN 7.7 g/dL (13.5-17.5); IMMATURE GRANULOCYTES 0.4 % (0-5); LYMPHOCYTES 6.1 % (15-50); MCH 21.8 pg (26.0-34.0); MCHC 28.3 g/dL (31.0-37.0); MCV 77.1 fL (80.0-100.0); MEAN PLATELET VOLUME 8.9 fL (7.4-10.4); MONOCYTES 10.8 % (2-11); NEUTROPHILS 77.3 % (40-80); PLATELET COUNT 295 10x3/uL (130-400); RBC 3.53 10x6/uL (4.20-6.10); RDW 21.3 % (11.5-14.5); WBC 5.4 10x3/uL (4.8-10.8)
[2020-03-17 06:29] VITALS: BP 125/41
[2020-03-17 06:30] LABS: ANION GAP 10.6 mmol/L (8-16); CALCIUM 7.8 mg/dL (8.5-10.1); CARBON DIOXIDE 28.3 mmol/L (21.0-32.0); CREATININE - SERUM 1.5 mg/dL (0.6-1.3); POTASSIUM - SERUM 3.9 mmol/L (3.5-5.1); PROTEIN - SERUM 5.5 g/dL (6.4-8.2)
[2020-03-17 09:01] VITALS: BP 125/41
[2020-03-17 12:37] VITALS: BP 124/43
[2020-03-17 13:10] LABS: ACID FAST SMEAR Negative (()); AFB SPECIMEN PROCESSING Not Indicated (())
--- NOTE | 2020-03-17 13:50 | MORECARE ---
CASE MANAGEMENT DISCHARGE SUMMARY PATIENT: HUMBLE QUEEN UNIT: [id number] ADM DATE: 03/14/20 AGE: 79 : 42 SEX: M ROOM/BED: D.2205 AUTHOR: GRACE MCDONALD PHYSICIAN: REFERRING PHYSICIAN: ALBERTINA DAILY MD DATE OF SERVICE: 03/17/20 Discharge Plan Patient Name: HUMBLE QUEEN Facility: [facility]:[place] : 1940 Planned Disposition: Home with Home Health Anticipated Discharge Date: Discharge Date: Expected LOS: Initial Reviewer: [email or web address] Initial Review Date: 03/14/2020 Generated: 03/17/20 2:49 pm DCPIA - Discharge Planning Initial Assessment Updated by [email or web address]: Iris Ortega on 03/17/20 1:45 pm * Is the patient Alert and Oriented? Yes * How many steps to enter\exit or inside your home? * PCP KILLIAN * Pharmacy [facility] * Preadmission Environment Home with Family * ADLs Independent * Equipment CPAP Nebulizer Other Oxygen Walker Wheelchair * Other Equipment CONCENTRATOR * List name and contact numbers for known caregivers / representatives who currently or will assist patient after discharge: LEORA () [phone] * Verbal permission to speak to the caregivers and representatives has been obtained from the patient. N/A * Community resources currently utilized Home Health * Please name any agencies selected above. [facility] * Additional services required to return to the preadmission environment? No * Can the patient safely return to the preadmission environment? Yes * Has this patient been hospitalized within the prior 30 days at any hospital? No Patient Name: HUMBLE QUEEN Page 78093 at 1350 All edits/amendments must be made on the electronic document DICTATION DATE: 03/17/20 1350 FIELD SALES REPRESENTATIVE: COLT 03/17/20 1350 RPT#: [id number] DC DATE: STATUS: ADM IN [facility] [address] [place] [address] END OF REPORT
--- NOTE | 2020-03-17 13:59 | MORECARE ---
CASE MANAGEMENT DISCHARGE SUMMARY PATIENT: HUMBLE QUEEN UNIT: [id number] ADM DATE: 03/14/20 AGE: 79 : 42 SEX: M ROOM/BED: D.2205 AUTHOR: HARRY,DOC PHYSICIAN: REFERRING PHYSICIAN: ALBERTINA DAILY MD DATE OF SERVICE: 03/17/20 Discharge Plan Patient Name: HUMBLE QUEEN Facility: [facility]:[place] : 1940 Planned Disposition: Home with Home Health Anticipated Discharge Date: Discharge Date: Expected LOS: Initial Reviewer: [email or web address] Initial Review Date: 03/14/2020 Generated: 03/17/20 2:59 pm Comments DCP- Discharge Planning Updated by [email or web address]: Iris Ortega on 03/17/20 12:[address] Patient Name: HUMBLE QUEEN Admission Status: Elective Accout number: [id number] Admission Date: 03-14-2020 : 1940 Admission Diagnosis: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 CM educated patient on the CM role and verbal consent given by patient to complete assessment. Patient lives at home with his where he is independent with his care. At discharge patient plans to return home and feels this is a safe discharge. CM discussed availability of home health, rehab services, and medical equipment. Patient states that he is current with [facility] . He has a nebulizer, O2, port O2, cpap, and wheelchair all from [facility]. FILIPE signed and placed in chart. IMM served and explained. Patient denied known discharge needs at this time. CM will continue to follow and will assist as needed with dc plans/needs. Unix Consultant: Iris Ortega DCPIA - Discharge Planning Initial Assessment Updated by [email or web address]: Iris Ortega on 03/17/20 1:45 pm * Is the patient Alert and Oriented? Yes * How many steps to enter\exit or inside your home? * PCP KILLIAN * Pharmacy [facility] [address] * Preadmission Environment Home with Family * ADLs Independent * Equipment CPAP Nebulizer Other Oxygen Walker Wheelchair * Other Equipment CONCENTRATOR * List name and contact numbers for known caregivers / representatives who currently or will assist patient after discharge: LEORA () [phone] * Verbal permission to speak to the caregivers and representatives has been obtained from the patient. N/A * Community resources currently utilized Home Health * Please name any agencies selected above. [facility] * Additional services required to return to the preadmission environment? No * Can the patient safely return to the preadmission environment? Yes * Has this patient been hospitalized within the prior 30 days at any hospital? No Last DP export: 03/17/20 12:50 p Patient Name: HUMBLE QUEEN Page 46857 at 1359 All edits/amendments must be made on the electronic document DICTATION DATE: 03/17/20 1350 TRUCK SALES REPRESENTATIVE: COLT 03/17/20 1359 RPT#: [id number] DC DATE: STATUS: ADM IN [facility] [address] [place] [address] END OF REPORT
--- NOTE | 2020-03-17 14:15 | MORECARE ---
CASE MANAGEMENT DISCHARGE SUMMARY PATIENT: HUMBLE QUEEN UNIT: [id number] ADM DATE: 03/14/20 AGE: 79 : 42 SEX: M ROOM/BED: D.2205 AUTHOR: HARRY,DOC PHYSICIAN: REFERRING PHYSICIAN: ALBERTINA DAILY MD DATE OF SERVICE: 03/17/20 Discharge Plan Patient Name: HUMBLE QUEEN Facility: [facility]:[place] : 1940 Planned Disposition: Home with Home Health Anticipated Discharge Date: Discharge Date: Expected LOS: Initial Reviewer: [email or web address] Initial Review Date: 03/14/2020 Generated: 03/17/20 3:14 pm Comments DCP- Discharge Planning Updated by [email or web address]: Iris Ortega on 03/17/20 12:[address] Patient Name: HUMBLE QUEEN Admission Status: Elective Accout number: [id number] Admission Date: 03-14-2020 : 1940 Admission Diagnosis: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 CM educated patient on the CM role and verbal consent given by patient to complete assessment. Patient lives at home with his where he is independent with his care. At discharge patient plans to return home and feels this is a safe discharge. CM discussed availability of home health, rehab services, and medical equipment. Patient states that he is current with [facility] . He has a nebulizer, O2, port O2, cpap, and wheelchair all from [facility]. NACHO signed and placed in chart. IMM served and explained. Patient denied known discharge needs at this time. CM will continue to follow and will assist as needed with dc plans/needs. Otr Owner Operator: Iris Ortega DCPIA - Discharge Planning Initial Assessment Updated by [email or web address]: Iris Ortega on 03/17/20 1:45 pm * Is the patient Alert and Oriented? Yes * How many steps to enter\exit or inside your home? * PCP KILLIAN * Pharmacy [facility] [address] * Preadmission Environment Home with Family * ADLs Independent * Equipment CPAP Nebulizer Other Oxygen Walker Wheelchair * Other Equipment CONCENTRATOR * List name and contact numbers for known caregivers / representatives who currently or will assist patient after discharge: LEORA () [phone] * Verbal permission to speak to the caregivers and representatives has been obtained from the patient. N/A * Community resources currently utilized Home Health * Please name any agencies selected above. [facility] * Additional services required to return to the preadmission environment? No * Can the patient safely return to the preadmission environment? Yes * Has this patient been hospitalized within the prior 30 days at any hospital? No External Providers External Provider: [facility] Next Contact Date: Service Request Date: Service Type: Resolution: Reviewer: Comments: Coverage Notice Reviewer: [email or web address] David Ortega Notice Issued Date-Time: 03/17/2020 13:40 Notice Type: IM Discharge Notice Notice Delivered To: Patient Relationship to Patient: Kennel Staff Member Name: Delivery Method: HAND - Hand Delivered Nevaeh Days: Prior Verbal Notification: Recipient Understood Notice: Yes Recipient Signature: Yes Med Rec Note Co-signed by Attending: Coverage Notice Comment: imm served and explained Reviewer: [email or web address] David Ortega Notice Issued Date-Time: 03/17/2020 13:40 Notice Type: Patient Choice Letter Notice Delivered To: Patient Relationship to Patient: Kennel Staff Member Name: Delivery Method: HAND - Hand Delivered Nevaeh Days: Prior Verbal Notification: Recipient Understood Notice: Yes Recipient Signature: Yes Med Rec Note Co-signed by Attending: Coverage Notice Comment: [facility] Last DP export: 03/17/20 12:59 p Patient Name: HUMBLE QUEEN Page [phone] at 1415 All edits/amendments must be made on the electronic document DICTATION DATE: 03/17/20 141 INDEPENDENT SALES REPRESENTATIVE: COLT 03/17/20 141 RPT#: [id number] [place] DATE: STATUS: ADM IN [facility] [address] [place] [address] END OF REPORT
[2020-03-18 14:09] LABS: FUNGUS STAIN Final report (())
== END 2020-03-17 15:49 | disposition home health service (06) | DRG 186 ==
LOC: D.OPS 12:44 → D.MS 16:45 → D.OPS 03-14 19:12 → D.MS 03-14 19:13
PROVIDERS: Internal Medicine Pulmonary Disease; Radiology Diagnostic Radiology; ADMIT Family Medicine; ATTEND Family Medicine
PROC: 0W993ZZ Drainage of Right Pleural Cavity, Percutaneous Approach (ICD-10-PCS; principal; 2020-03-16 10:29)
DX: J90 Pleural effusion, not elsewhere classified (principal); I50.23 Acute on chronic systolic (congestive) heart failure; I11.0 Hypertensive heart disease with heart failure; G47.33 Obstructive sleep apnea (adult) (pediatric); I27.20 Pulmonary hypertension, unspecified; D64.9 Anemia, unspecified; I49.5 Sick sinus syndrome; E66.01 Morbid (severe) obesity due to excess calories; I25.10 Atherosclerotic heart disease of native coronary artery without angina pectoris; F41.9 Anxiety disorder, unspecified; E11.9 Type 2 diabetes mellitus without complications; Z95.0 Presence of cardiac pacemaker

== ENCOUNTER 2020-04-17 09:26 | Outpatient (CLI) | payer MEDICARE, BC ==
[~2020-04-17] VITALS: Ht 188 cm; Wt 159.1 kg
[2020-04-17 10:52] VITALS: BP 112/57; Ht 188 cm; Wt 159.1 kg
== END 2020-04-17 15:30 | disposition home or self-care (01) ==
LOC: D.OPS 09:26
PROVIDERS: ATTEND Internal Medicine Medical Oncology
DX: D64.9 Anemia, unspecified (principal)

== ENCOUNTER 2020-04-30 15:52 | Inpatient (IN) | payer MEDICARE, BC ==
[~2020-04-30] VITALS: Ht 188 cm; Wt 146.1 kg
--- NOTE | 2020-04-30 16:00 | NUR ---
RECEIVED PT FROM ADMISSIONS. SITUATED IN BED.
--- NOTE | 2020-04-30 17:27 | NUR ---
18 GA IV STARTED TO THE RIGHT HAND, X1 TRY. TOLERATED WELL.
[2020-04-30 17:41] VITALS: BP 122/44; BMI 41.4
[2020-04-30 20:00] VITALS: BP 106/39
[2020-05-01] VITALS: BP 125/42
--- NOTE | 2020-05-01 00:08 | NUR ---
CALL TO DR SINHA COMMUNICATIONS DESIGNER, PATIENT STATED THAT HE HAS REACTUION TO IRON EVERY TIME HE GETS IT. STATED HIS DR ALWAYS GIVES HIM A STEROID BEFORE THEY GIVE IT. DR SINHA GAVE ONE TIME ORDER FOR SOLUMEDROL 40MG IV. THIS WAS GIVEN IRON STATRED AND COMPLETED AT 2250. PT WENT TO BATHROOM WAS IN THERE FOR 10 MIN HAD A BM AND GAS. WHEN BACK TO BED STATED THAT HE WAS HAVING A REACTION TO IROIN, C/O CHEST PAIN GOING TO RIGHT ARM. V/S P. 99-108, B/P 147/51, REP. 24, O2 93% WITH C PAP IN PLACE. BELCHING X2, . PRE MEDS OF TYLENOL 650MG P.O. AND BENADRYL 25MG IV. GIVEN. CALLED DR SINHA BACK. WHEN HE RETRUNED CALL PT STATED HE FELT BETTER AND WAS NOT HAVING ANY PAIN. DR. SINHA OKED TO CONTIUE WITH 2 UNITS OF BLOOD WITH NO NEW ORDERS. UNIT 1 STARTED AT 2345. TEMP 98.2, PULSE 86, RESP 24, B/P 122/44. NO S/S OF DISTRESS .
--- NOTE | 2020-05-01 02:40 | NUR ---
UNIT 1 [id number] COMPLET AT 0150 WITH NO S/S OF DISTRESS. UNIT #2 STARTED AT 0220 UNIT #[id number]
[2020-05-01 04:00] VITALS: BP 130/48
--- NOTE | 2020-05-01 06:08 | NUR ---
UNIT 2 OF PRBC COMPLET AT 0500. WITH NO NOTED REACTION. V/S TEMP 98.2, P. 81, RESP.22, B/P 125/60. ALERT AND ORENTED LAYING IN BED STATED FEELING BETTER. JOKING WITH STAFF. HAD SAT UP ON SIDE OF THE BED FOR A TIME.
--- NOTE | 2020-05-01 07:00 | NUR ---
RESTING IN BED WITH CPAP ON. RESPIRATIONS EVEN AND UNLABORED. NO S/S OF ACUTE DISTRESS NOTED. IV TO RIGHT HAND, SL. SITE PATENT WITHOUT REDNESS OR SWELLING. CALL LIGHT IN REACH. WILL CONTINUE TO MONITOR.
--- NOTE | 2020-05-01 07:15 | NUR ---
ORDER PLACED PER PROTOCOL TO RECHECK H&H AT 1100
[2020-05-01 08:55] VITALS: BP 152/55
[2020-05-01 11:07] LABS: BASOPHILS 0.2 % (0-2); EOSINOPHILS 0 % (0-7); HEMATOCRIT 26.4 % (42.0-54.0); IMMATURE GRANULOCYTES 0.4 % (0-5); LYMPHOCYTES 6.7 % (15-50); MCH 21.3 pg (26.0-34.0); MCHC 28.4 g/dL (31.0-37.0); MEAN PLATELET VOLUME 8.8 fL (7.4-10.4); MONOCYTES 5.5 % (2-11); NEUTROPHILS 87.2 % (40-80); PLATELET COUNT 237 10x3/uL (130-400); RBC 3.52 10x6/uL (4.20-6.10); RDW 20.4 % (11.5-14.5); WBC 5.6 10x3/uL (4.8-10.8)
[2020-05-01 11:11] LABS: HEMOGLOBIN 7.5 g/dL (13.5-17.5)
[2020-05-01 11:22] LABS: ALBUMIN 3.4 g/dL (3.4-5.0); ANION GAP 11.6 mmol/L (8-16); BILIRUBIN - TOTAL 0.69 mg/dL (0.2-1.3); CALCIUM 8.1 mg/dL (8.5-10.1); CARBON DIOXIDE 26.9 mmol/L (21.0-32.0); CREATININE - SERUM 1.9 mg/dL (0.6-1.3); POTASSIUM - SERUM 4.5 mmol/L (3.5-5.1); PROTEIN - SERUM 6.7 g/dL (6.4-8.2)
[2020-05-01 13:05] VITALS: BP 151/55
[2020-05-01 13:44] VITALS: Ht 188 cm; Wt 146.1 kg
--- NOTE | 2020-05-01 15:16 | NUR ---
I have reviewed this patient and I concur with the Shift Assessment completed by the Licensed Practical Nurse today this shift.
[2020-05-01 17:37] VITALS: BP 144/49
--- NOTE | 2020-05-01 21:00 | NUR ---
LYING QUEITLYL WITH NO COMPLAINTS VOICED. RESP EVEN AND UNALBORED. NO DISTRESS NOTED. CL IN REACH
[2020-05-01 22:06] VITALS: BP 110/43
[2020-05-02 04:00] VITALS: BP 125/61
--- NOTE | 2020-05-02 04:39 | NUR ---
I have reviewed this patient and I concur with the Shift Assessment completed by the Licensed Practical Nurse today this shift.
--- NOTE | 2020-05-02 07:10 | NUR ---
A&O RESTING IN BED WITH EYES OPEN. CPAP ON. NO C/O PAIN. NO S/S OF ACUTE DISTRESS NOTED. IV TO RIGHT HAND, SL. SITE PATENT WITHOUT REDNESS OR SWELLING. DENIES ANY NEEDS AT THIS TIME. CALL LIGHT IN REACH. WILL CONTINUE TO MONITOR.
--- NOTE | 2020-05-02 08:00 | NUR ---
UP AT BEDSIDE. PATIENT IS WITHOUT DISTRESS.
[2020-05-02 09:49] VITALS: BP 139/43
[2020-05-02 13:58] VITALS: BP 145/47
[2020-05-02 14:18] LABS: BASOPHILS 0.6 % (0-2); EOSINOPHILS 3.2 % (0-7); HEMATOCRIT 28.1 % (42.0-54.0); HEMOGLOBIN 7.9 g/dL (13.5-17.5); IMMATURE GRANULOCYTES 0.5 % (0-5); LYMPHOCYTES 7.4 % (15-50); MCH 21.8 pg (26.0-34.0); MCHC 28.1 g/dL (31.0-37.0); MCV 77.4 fL (80.0-100.0); MEAN PLATELET VOLUME 9.1 fL (7.4-10.4); MONOCYTES 5.5 % (2-11); NEUTROPHILS 82.8 % (40-80); PLATELET COUNT 273 10x3/uL (130-400); RBC 3.63 10x6/uL (4.20-6.10); RDW 20.9 % (11.5-14.5); WBC 8.1 10x3/uL (4.8-10.8)
--- NOTE | 2020-05-02 14:50 | NUR ---
STARTED INFUSING 1 UNIT OF PRBC. VITALS STABLE. NO S/S OF ACUTE DISTRESS NOTED.
--- NOTE | 2020-05-02 17:03 | NUR ---
BLOOD FINISHED INFUSING. DISCHARGING HOME WITH VIA WHEELCHAIR. WENT OVER DISCHARGE INSTRUCTIONS WITH PATIENT, VERBALIZED UNDERSTANDING. DISCONTINUED IV, CATHETER TIP INTACT. DENIES ANYTHING FURTHER.
== END 2020-05-02 17:38 | disposition home or self-care (01) | DRG 811 ==
LOC: D.MS 15:52 → OBSVTIME 15:53 → D.MS 05-01 20:58
PROVIDERS: Internal Medicine Hematology & Oncology; ADMIT Internal Medicine Medical Oncology; ATTEND Internal Medicine Medical Oncology
DX: D50.0 Iron deficiency anemia secondary to blood loss (chronic) (principal); I50.23 Acute on chronic systolic (congestive) heart failure; I13.0 Hypertensive heart and chronic kidney disease with heart failure and stage 1 through stage 4 chronic kidney disease, or unspecified chronic kidney disease; Z68.41 Body mass index [BMI] 40.0-44.9, adult; I48.20 Chronic atrial fibrillation, unspecified; N18.9 Chronic kidney disease, unspecified; E11.22 Type 2 diabetes mellitus with diabetic chronic kidney disease; G47.33 Obstructive sleep apnea (adult) (pediatric); I49.5 Sick sinus syndrome; Z95.0 Presence of cardiac pacemaker; F41.9 Anxiety disorder, unspecified; I25.10 Atherosclerotic heart disease of native coronary artery without angina pectoris; E66.01 Morbid (severe) obesity due to excess calories; Z85.46 Personal history of malignant neoplasm of prostate

== ENCOUNTER → 2020-05-04 11:20 | Outpatient (CLI) | payer MEDICARE, BC ==
[2020-05-01 13:44] VITALS: BMI 41.3
[2020-05-04 12:17] LABS: BASOPHILS 0.6 % (0-2); EOSINOPHILS 6.3 % (0-7); HEMOGLOBIN 8.4 g/dL (13.5-17.5); IMMATURE GRANULOCYTES 0.6 % (0-5); LYMPHOCYTES 4.2 % (15-50); MCH 21.5 pg (26.0-34.0); MCV 76.9 fL (80.0-100.0); MEAN PLATELET VOLUME 8.7 fL (7.4-10.4); MONOCYTES 10.7 % (2-11); NEUTROPHILS 77.6 % (40-80); PLATELET COUNT 272 10x3/uL (130-400); RDW 21.7 % (11.5-14.5); WBC 7.1 10x3/uL (4.8-10.8)
== END | disposition home or self-care (01) ==
LOC: D.LAB 11:15
PROVIDERS: ATTEND Internal Medicine Pulmonary Disease
DX: R06.00 Dyspnea, unspecified (principal); J90 Pleural effusion, not elsewhere classified

== ENCOUNTER 2020-06-19 13:07 | Outpatient (CLI) | payer MEDICARE, BC ==
[~2020-06-19] VITALS: Ht 188 cm; Wt 159.1 kg
[2020-06-19 14:52] VITALS: BP 116/53; Ht 188 cm; Wt 159.1 kg
== END 2020-06-19 19:00 ==
LOC: D.OPS 13:07
PROVIDERS: ATTEND Internal Medicine Medical Oncology
DX: D64.9 Anemia, unspecified (principal)

== ENCOUNTER 2020-06-23 15:09 | Inpatient (IN) | payer MEDICARE, BC ==
[~2020-06-23] VITALS: Ht 188 cm; Wt 150.0 kg
[2020-06-23 15:56] LABS: BASOPHILS 0.5 % (0-2); EOSINOPHILS 10.4 % (0-7); HEMATOCRIT 28.9 % (42.0-54.0); HEMOGLOBIN 8.2 g/dL (13.5-17.5); IMMATURE GRANULOCYTES 0.9 % (0-5); LYMPHOCYTES 10.3 % (15-50); MCH 21.4 pg (26.0-34.0); MCHC 28.4 g/dL (31.0-37.0); MCV 75.5 fL (80.0-100.0); MEAN PLATELET VOLUME 8.8 fL (7.4-10.4); MONOCYTES 4.6 % (2-11); NEUTROPHILS 73.3 % (40-80); PLATELET COUNT 293 10x3/uL (130-400); RBC 3.83 10x6/uL (4.20-6.10); RDW 22.7 % (11.5-14.5)
[2020-06-23 16:07] LABS: APTT 36.3 SECONDS (22.8-39.4); INR 1.21 (0.85-1.17); PROTIME 15.2 SECONDS (11.6-15.0)
[2020-06-23 16:08] LABS: CALC OSMOLALITY 295 mosm/kg (275-300); CALCIUM 8.8 mg/dL (8.5-10.1); CARBON DIOXIDE 28.5 mmol/L (21.0-32.0); CHLORIDE - SERUM 100 mmol/L (98-107); CREATININE - SERUM 1.7 mg/dL (0.6-1.3); POTASSIUM - SERUM 4.8 mmol/L (3.5-5.1); SODIUM 135 mmol/L (136-145); UREA NITROGEN 71 mg/dL (7-18); eGFR NON AFRICAN AMERICAN 42 mL/min (90-120)
[2020-06-23 16:09] LABS: GLUCOSE 190 mg/dL (74-106)
[2020-06-23 16:24] LABS: ALBUMIN 3.9 g/dL (3.4-5.0); ALKALINE PHOSPHATASE 110 U/L (30-120); ALT (SGPT) 24 U/L (10-68); BILIRUBIN - TOTAL 0.49 mg/dL (0.2-1.3); CKMB 1.7 U/L (0.0-3.6); CREATINE KINASE 30 UL (21-232); PRO BNP 1932 pg/mL (0-450); PROTEIN - SERUM 7.6 g/dL (6.4-8.2); TROPONIN-I < 0.017 ng/mL (0.000-0.060)
[2020-06-23 19:20] LABS: % SATURATION 5 % (15-55); IRON 20 ug/dl (35-150); TOTAL IRON BIND CAPACITY 383 ug/dl (260-445); UNSAT IRON BIND CAPACITY 363 ug/dl (150-375)
[2020-06-23 19:35] VITALS: BP 133/55
--- NOTE | 2020-06-23 19:35 | NUR ---
PT REPORT FROM CHRISTINE ENG
--- NOTE | 2020-06-23 20:12 | NUR ---
COVID SWAB SENT TO LAB
[2020-06-23 21:17] VITALS: BP 140/50
--- NOTE | 2020-06-23 21:20 | NUR ---
fsbs 185
[2020-06-23 22:34] VITALS: BP 149/74
[2020-06-23 22:41] LABS: CKMB 1.5 U/L (0.0-3.6); CREATINE KINASE 20 UL (21-232); TROPONIN-I 0.025 ng/mL (0.000-0.060)
[2020-06-24 02:05] VITALS: BP 137/55
[2020-06-24 03:29] LABS: BASOPHILS 0.6 % (0-2); EOSINOPHILS 10.5 % (0-7); HEMATOCRIT 28.3 % (42.0-54.0); IMMATURE GRANULOCYTES 0.4 % (0-5); LYMPHOCYTES 4.9 % (15-50); MCH 21.3 pg (26.0-34.0); MCHC 28.3 g/dL (31.0-37.0); MCV 75.5 fL (80.0-100.0); MEAN PLATELET VOLUME 8.8 fL (7.4-10.4); NEUTROPHILS 72.6 % (40-80); PLATELET COUNT 283 10x3/uL (130-400); RBC 3.75 10x6/uL (4.20-6.10); RDW 22.7 % (11.5-14.5); WBC 7.1 10x3/uL (4.8-10.8)
[2020-06-24 03:59] LABS: CALC OSMOLALITY 299 mosm/kg (275-300); CALCIUM 8.7 mg/dL (8.5-10.1); CARBON DIOXIDE 29.6 mmol/L (21.0-32.0); CHLORIDE - SERUM 103 mmol/L (98-107); CKMB 0.9 U/L (0.0-3.6); CREATINE KINASE 17 UL (21-232); CREATININE - SERUM 1.7 mg/dL (0.6-1.3); GLUCOSE 190 mg/dL (74-106); POTASSIUM - SERUM 4.2 mmol/L (3.5-5.1); SODIUM 138 mmol/L (136-145); TROPONIN-I 0.029 ng/mL (0.000-0.060); UREA NITROGEN 65 mg/dL (7-18); eGFR NON AFRICAN AMERICAN 42 mL/min (90-120)
[2020-06-24 07:38] VITALS: BP 113/83
[2020-06-24 11:07] LABS: CKMB 1.1 U/L (0.0-3.6); CREATINE KINASE 17 UL (21-232); TROPONIN-I 0.018 ng/mL (0.000-0.060)
--- NOTE | 2020-06-24 11:10 | NUR ---
RECEIVED BEDSIDE REPORT FROM CHRISTINE STOLL
--- NOTE | 2020-06-24 11:47 | NUR ---
MEAL GIVEN TO PT INSULIN GIVEN BY JERMAN KING
[2020-06-24 12:46] VITALS: BP 123/48
[2020-06-24 12:56] VITALS: BMI 44.9
--- NOTE | 2020-06-24 14:26 | NUR ---
RESPIRATORY CALLED FOR PALOMA DIAS
--- NOTE | 2020-06-24 16:16 | NUR ---
OUTPUT 900 CC
--- NOTE | 2020-06-24 16:20 | NUR ---
PT REPORTS COVID TESTED YESTERDAY IN ER
--- NOTE | 2020-06-24 16:40 | NUR ---
OUTPUT 300 CC
--- NOTE | 2020-06-24 16:40 | NUR ---
URINE TO LAB
--- NOTE | 2020-06-24 17:00 | NUR ---
PT WAS GIVEN MEAL BEFORE GLUCOSE TESTING WAS DONE.
[2020-06-24 17:03] LABS: BILIRUBIN NEGATIVE (NEGATIVE); KETONE NEGATIVE (NEGATIVE); NITRITE NEGATIVE (NEGATIVE); UROBILINOGEN NORMAL mg/dL (< 2)
--- NOTE | 2020-06-24 18:52 | NUR ---
FSBS 261
--- NOTE | 2020-06-24 20:00 | NUR ---
REPORT GIVEN TO FILI RG
--- NOTE | 2020-06-24 23:22 | NUR ---
FSBS 2200 248 8 UNITS OF HUMILIN GIVEN AND 70 UNITS OF LANTUS GIVEN DENIES NEEDS. WCTM
--- NOTE | 2020-06-24 23:23 | NUR ---
REPORT GIVEN TO CHIOMA. PT DENIES NEEDS AT THIS TIME. WILL TRANSFER TO FLOOR
--- NOTE | 2020-06-24 23:40 | NUR ---
PT FROM ER VIA BED, PT AMBULATED TO ROOM, RESP EVEN AND UNLABORED, NO DISTRESS NOTED, CL IN REACH, SR UP X 2.
[2020-06-25] VITALS (7 sets, daily range): BP systolic 113–139; BP diastolic 38–71; Ht 188 cm; Wt 150.0 kg
[2020-06-25 07:17] LABS: BASOPHILS 0.7 % (0-2); HEMATOCRIT 28.3 % (42.0-54.0); IMMATURE GRANULOCYTES 0.5 % (0-5); LYMPHOCYTES 8.3 % (15-50); MCH 21.1 pg (26.0-34.0); MCHC 28.3 g/dL (31.0-37.0); MCV 74.7 fL (80.0-100.0); MEAN PLATELET VOLUME 8.7 fL (7.4-10.4); MONOCYTES 10.3 % (2-11); NEUTROPHILS 66.2 % (40-80); PLATELET COUNT 280 10x3/uL (130-400); RBC 3.79 10x6/uL (4.20-6.10); RDW 22.6 % (11.5-14.5)
[2020-06-25 07:22] LABS: CALCIUM 8.8 mg/dL (8.5-10.1); CARBON DIOXIDE 29.5 mmol/L (21.0-32.0); CREATININE - SERUM 1.6 mg/dL (0.6-1.3)
[2020-06-25 07:26] LABS: POTASSIUM - SERUM 3.5 mmol/L (3.5-5.1)
--- NOTE | 2020-06-25 10:47 | EC ---
PATIENT:HUMBLE QUEEN DATE OF SERVICE: 06/23/20 SEX: M MEDICAL RECORD: [id number] DATE OF : [birth year] LOCATION:D.M2 D.212 AGE OF PATIENT: 79 ADMISSION DATE: 06/23/20 REFERRING PHYSICIAN: INTERPRETING PHYSICIAN: MILO LOPEZ MD ECHOCARDIOGRAM REPORT ECHO CHARGES 4 ECHO COMPLETE Date: 06/24/20 CLINICAL DIAGNOSIS: CMP ECHOCARDIOGRAPHIC MEASUREMENTS (adult normal given) AC root (d.<3.7cm) 3.0 cm LV Septum d (<1.2 cm> 1.1 cm Valve Excursion 1.6 cm LV Septum (systole) 1.7 cm Left Atria (s.<4.0cm> 6.4 cm LVPW d(<1.2cm) 1.7 cm RV (d.<2.3cm) 3.7 cm LVPW (sytole) 1.9 cm LV diastole(<5.6CM) 6.4 cm MV E-F(>70mm/sec) cm LV systole 5.6 cm LVOT Diameter 2.3 cm MV exc.(>10mm) 1.4 cm Est.ejection fraction (50-75%) % DOPPLER: LVIT cm/sec A 52 cm/sec E 105 cm/sec LA cm/sec RVSP 21 mmHg LVOT 122 cm/sec AOP1/2T m/s Asc. Ao 201 cm/sec RVOT 80 cm/sec RA cm/sec PA 78 cm/sec AV Gradient Peak 16.1 mmHg AV Mean 8.6 mmHg AV Area 3.0 cm MV Gradient Peak 5.6 mmHg MV Mean 1.7 mmHg MV Area cm COMMENTS: Dry Starch Operator: Eladio MCKENZIE Steam Drier Operator: 3 Dr. Dolan TAPE# PACS Pericardial Effusion N DATE OF SERVICE: Adequate 2D, color flow imaging, spectral Doppler, and M-mode. No LVH. LV internal dimensions are dilated. LV is mildly globally hypo with mildly reduced EF, estimated at 40% to 45%. Aortic valve sclerosis without stenosis by Doppler interrogation. Left atrium likewise is dilated at 6.4 cm. Mitral valve shows no prolapse. Mild MR. Right-sided chambers are grossly normal. Trace TR. ECHOCARDIOGRAM REPORT [id number] HUMBLE QUEEN TRANSINT:[id number] Voice Confirmation ID: [id number] DOCUMENT ID: [id number] MILO LOPEZ MD at 1047 CC: [id number] DICTATION DATE: 06/24/20 164 PSYCHOLOGIST MILITARY PERSONNEL: 06/24/20 2340 ADM IN [facility] [address] [place] [id number]
[2020-06-25] MEDS ORDERED: ALDACTONE25 MG PO (11:10)
[2020-06-25] MEDS ORDERED: PROTONIX40 MG PO (11:10)
[2020-06-25 12:11] LABS: HAPTOGLOBIN 153 mg/dL (34-355)
--- NOTE | 2020-06-25 19:34 | NUR ---
REPORT RECIEVED AND ROUNDING COMPLETE. PATIENT LAYING IN BED IN HIGH FOWLERS TALKING ON HIS SLIME PHONE. WEARING NASAL CANNULA WITH O2 AT 3L, HOME CPAP AT BEDSIDE. RIGHT HAND PIV WITH FLUIDS RUNNING. NO DISTRESS NOTED, DENIES ANY NEEDS AT THIS TIME. CALL LIGHT WITHIN REACH AND BED IN LOWEST LOCKED POSITION.
[2020-06-26] VITALS: BP 121/47
[2020-06-26 04:00] VITALS: BP 123/57
[2020-06-26 07:30] LABS: CALCIUM 8.6 mg/dL (8.5-10.1); CARBON DIOXIDE 29.7 mmol/L (21.0-32.0); CREATININE - SERUM 1.6 mg/dL (0.6-1.3); POTASSIUM - SERUM 3.7 mmol/L (3.5-5.1)
[2020-06-26 08:13] LABS: BASOPHILS 0.6 % (0-2); EOSINOPHILS 12.9 % (0-7); HEMATOCRIT 27.5 % (42.0-54.0); HEMOGLOBIN 7.7 g/dL (13.5-17.5); IMMATURE GRANULOCYTES 0.3 % (0-5); LYMPHOCYTES 8.2 % (15-50); MCH 20.8 pg (26.0-34.0); MCV 74.3 fL (80.0-100.0); MEAN PLATELET VOLUME 8.9 fL (7.4-10.4); MONOCYTES 15.1 % (2-11); NEUTROPHILS 62.9 % (40-80); PLATELET COUNT 311 10x3/uL (130-400); RDW 22.5 % (11.5-14.5); WBC 6.4 10x3/uL (4.8-10.8)
[2020-06-26 12:37] VITALS: BP 116/36
--- NOTE | 2020-06-26 14:15 | MORECARE ---
CASE MANAGEMENT DISCHARGE SUMMARY PATIENT: HUMBLE QUEEN UNIT: [id number] ADM DATE: 06/23/20 AGE: 79 : 44 SEX: M ROOM/BED: D.2127 AUTHOR: GRACE MCDONALD PHYSICIAN: REFERRING PHYSICIAN: ALBERTINA DAILY MD DATE OF SERVICE: 06/26/20 Discharge Plan Patient Name: HUMBLE QUEEN Facility: [facility]:[place] : 1940 Planned Disposition: Home or Self Care Anticipated Discharge Date: Discharge Date: Expected LOS: 0 Initial Reviewer: [email or web address] Initial Review Date: 06/23/2020 Generated: 06/26/20 3:15 pm Patient Name: HUMBLE QUEEN Page 73790 at 1415 All edits/amendments must be made on the electronic document DICTATION DATE: 06/26/20 1415 MUNICIPAL FIREFIGHTER: COLT 06/26/20 1415 RPT#: [id number] DC DATE: STATUS: ADM IN [facility] [address] [place] [address] END OF REPORT
--- NOTE | 2020-06-26 14:23 | MORECARE ---
CASE MANAGEMENT DISCHARGE SUMMARY PATIENT: HUMBLE QUEEN UNIT: [id number] ADM DATE: 06/23/20 AGE: 79 : 44 SEX: M ROOM/BED: D.2127 AUTHOR: GRACE MCDONALD PHYSICIAN: REFERRING PHYSICIAN: ALBERITNA DAILY MD DATE OF SERVICE: 06/26/20 Discharge Plan Patient Name: HUMBLE QUEEN Facility: [facility]:[place] : 1940 Planned Disposition: Home or Self Care Anticipated Discharge Date: Discharge Date: Expected LOS: 0 Initial Reviewer: [email or web address] Initial Review Date: 06/23/2020 Generated: 06/26/20 3:23 pm DCPIA - Discharge Planning Initial Assessment Updated by [email or web address]: Gayathri Howard on 06/26/20 2:16 pm * Is the patient Alert and Oriented? Yes * How many steps to enter\exit or inside your home? 0/0 * PCP Jose * Pharmacy [facility] * Preadmission Environment Home with Family * ADLs Independent * Equipment CPAP Oxygen * List name and contact numbers for known caregivers / representatives who currently or will assist patient after discharge: Odalys [phone] * Verbal permission to speak to the caregivers and representatives has been obtained from the patient. Yes * Community resources currently utilized None * Please name any agencies selected above. [facility] * Additional services required to return to the preadmission environment? No * Can the patient safely return to the preadmission environment? Yes * Has this patient been hospitalized within the prior 30 days at any hospital? No Last DP export: 06/26/20 1:15 p Patient Name: HUMBLE QUEEN Page [id number] at 1423 All edits/amendments must be made on the electronic document DICTATION DATE: 06/26/201422 SUPERVISOR DRYING AND WINDING: COLT 06/26/201422 RPT#: [id number] DC DATE: STATUS: ADM IN [facility] [address] [place] [address] END OF REPORT
--- NOTE | 2020-06-26 14:32 | MORECARE ---
CASE MANAGEMENT DISCHARGE SUMMARY PATIENT: HUMBLE QUEEN UNIT: [id number] ADM DATE: 06/23/20 AGE: 79 : 42 SEX: M ROOM/BED: D.0449 AUTHOR: GRACE MCDONALD PHYSICIAN: REFERRING PHYSICIAN: ALBERTINA DAILY MD DATE OF SERVICE: 06/26/20 Discharge Plan Patient Name: HUMBLE QUEEN Facility: [facility]:[place] : 1940 Planned Disposition: Home or Self Care Anticipated Discharge Date: Discharge Date: Expected LOS: 0 Initial Reviewer: [email or web address] Initial Review Date: 06/23/2020 Generated: 06/26/20 3:31 pm Comments DCP- Discharge Planning Updated by [email or web address]: Gayathri Howard on 06/26/20 1:[address] Patient Name: HUMBLE QUEEN Admission Status: ER Accout number: [id number] Admission Date: 06-23-2020 : 1940 Admission Diagnosis:HEART FAILURE, UNSPECIFIED Attending: ALBERTINA DAILY Current LOS: 3 Anticipated DC Date: Planned Disposition: Home or Self Care Primary Insurance: MEDICARE A & B Discharge Planning Comments: CM met with patient to complete initial dc planning assessment. CM educated patient on the CM role and verbal consent given by patient to complete assessment. CM verified patient's address, phone number, and emergency contact phone numbers. Patient lives at home with his Odalys and states he is independent without the the use of assisted devices. At discharge patient plans to return home and feels this is a safe discharge. CM discussed availability of home health, rehab services, and medical equipment. Declination signed for home health services or DME. Pt states he has a home cpap and a portable concentrator with [facility] and signed choice to resume care with [facility]. Patient denies other known discharge needs at this time. Transportation provider at discharge will be his Odalys. CM will continue to follow and will assist as needed with dc plans/needs. DC IMM delivered, explained, signed by the patient, and placed in chart. Signed form also left with the patient. Cut Off Machine Operator: Gayathri Howard DCPIA - Discharge Planning Initial Assessment Updated by [email or web address]: Gayathri Howard on 06/26/20 2:16 pm * Is the patient Alert and Oriented? Yes * How many steps to enter\exit or inside your home? 0/0 * PCP Jose * Pharmacy [facility] * Preadmission Environment Home with Family * ADLs Independent * Equipment CPAP Oxygen * List name and contact numbers for known caregivers / representatives who currently or will assist patient after discharge: Odalys bloom [phone] * Verbal permission to speak to the caregivers and representatives has been obtained from the patient. Yes * Community resources currently utilized None * Please name any agencies selected above. [facility] * Additional services required to return to the preadmission environment? No * Can the patient safely return to the preadmission environment? Yes * Has this patient been hospitalized within the prior 30 days at any hospital? No Coverage Notice Reviewer: [email or web address] Howard Notice Issued Date-Time: 06/26/2020 14:00 Notice Type: IM Discharge Notice Notice Delivered To: Patient Relationship to Patient: Self Subway Operator Name: Delivery Method: HAND - Hand Delivered Nevaeh Days: Prior Verbal Notification: Recipient Understood Notice: Yes Recipient Signature: Yes Med Rec Note Co-signed by Attending: Coverage Notice Comment: DC IMM delivered, explained, signed by the patient, and placed in chart. Signed form also left with the patient. Reviewer: [email or web address] David Howard Notice Issued Date-Time: 06/26/2020 14:00 Notice Type: Patient Choice Letter Notice Delivered To: Patient Relationship to Patient: Self Subway Operator Name: Delivery Method: HAND - Hand Delivered Nevaeh Days: Prior Verbal Notification: Recipient Understood Notice: Yes Recipient Signature: Yes Med Rec Note Co-signed by Attending: Coverage Notice Comment: nacho to resume [facility]. declined hh or dme Last DP export: 06/26/20 1:23 p Patient Name: HUMBLE QUEEN Page [id number] at 1432 All edits/amendments must be made on the electronic document DICTATION DATE: 06/26/20 1432 GAS METER PROVER: COLT 06/26/20 143 RPT#: [id number] DC DATE: STATUS: ADM IN [facility] [address] [place] [address] END OF REPORT
--- NOTE | 2020-06-26 14:48 | NUR ---
IV AND TELEMETRY DCD. DC PLANS GIVEN. UNDERSTANDING VOICED. CALLED FOR [facility].
--- NOTE | 2020-06-26 15:53 | NUR ---
ESCORTED TO CAR BY W/C.
== END 2020-06-26 15:53 | disposition home or self-care (01) | DRG 292 ==
LOC: D.ER 15:09 → D.M2 21:09 → D.EDHOLD 21:09 → D.M2 06-24 22:52
PROVIDERS: Emergency Medicine; Internal Medicine Nephrology; ADMIT Family Medicine; ATTEND Family Medicine
DX: I50.23 Acute on chronic systolic (congestive) heart failure (principal); I48.20 Chronic atrial fibrillation, unspecified; Z68.41 Body mass index [BMI] 40.0-44.9, adult; N18.9 Chronic kidney disease, unspecified; J44.9 Chronic obstructive pulmonary disease, unspecified; E11.22 Type 2 diabetes mellitus with diabetic chronic kidney disease; D50.9 Iron deficiency anemia, unspecified; E66.01 Morbid (severe) obesity due to excess calories; Z86.73 Personal history of transient ischemic attack (TIA), and cerebral infarction without residual deficits